=== PATIENT | male | born 1955 | race Caucasian/White ===

== ENCOUNTER 2020-03-31 08:32 | Outpatient (REF) | payer MEDICARE, OTHER, SELFPAY ==
--- NOTE | 2020-03-31 | US_ITS ---
EXAMINATION: US ABDOMEN COMPLETE CLINICAL INFORMATION: History of hepatitis C. COMPARISON: Ultrasound abdomen complete dated 09/22/2018 and 09/10/2017. TECHNIQUE: Real-time imaging of the abdominal viscera. FINDINGS: PANCREAS: Normal. ABDOMINAL AORTA: The proximal, mid, and distal segments are normal in caliber. INFERIOR VENA CAVA: Visualized portions are normal. LIVER: Normal. The liver is normal in size. The liver contour is normal. Parenchymal echogenicity is normal. No focal hepatic lesion. There is no intrahepatic biliary duct dilatation seen. GALLBLADDER: Normal. The gallbladder is physiologically distended without evidence of stones, sludge, polyps, wall thickening or pericholecystic fluid. COMMON BILE DUCT: Normal in caliber measuring 0.52 cm in diameter. RIGHT KIDNEY: Normal. No hydronephrosis. No renal calculi or focal parenchymal lesions. The kidney measures 11.9 cm in maximum dimension. LEFT KIDNEY: Normal. No hydronephrosis. No renal calculi or focal parenchymal lesions. The kidney measures 12.4 cm in maximum dimension. SPLEEN: Normal. The spleen measures 12.7 cm in maximum dimension. FREE FLUID: None. US/US abdomen complete IMPRESSION: Normal abdominal ultrasound. No liver lesion identified.
[2020-03-31 11:14] LABS: MANUAL DIFF FLAG NO
[2020-03-31 11:30] LABS: Basophils Percent Auto 0.7 % (0-2); Eosinophils Absolute Auto 0.2 X10*3/uL (0.0-0.4); Eosinophils Percent Auto 2.7 % (0-4); Hematocrit 42.8 % (42-52); Hemoglobin 14.2 g/dl (14.0-18.0); Imm Gran Abs Auto 0.03 X10*3/uL (0.00-0.03); Imm Gran Pct Auto 0.5 % (0.0-0.4); Lymphocytes Absolute Auto 0.9 X10*3/uL (1.2-4.9); Lymphocytes Percent Auto 15.7 % (20-40); Mean Corpuscular HGB Conc 33.2 g/dl (31.0-36.0); Mean Corpuscular Hemoglobin 30.8 pg (27.0-33.0); Mean Corpuscular Volume 92.8 fL (80-98); Mean Platelet Volume 11.4 fL (9.4-12.4); Monocytes Absolute Auto 0.5 X10*3/uL (0.1-1.2); Monocytes Percent Auto 9.6 % (2-11); Neutrophils Absolute Auto 3.9 X10*3/uL (2.0-8.3); Neutrophils Percent Auto 70.8 % (45-73); Platelet Count 211 X10*3/uL (160-400); Red Blood Count 4.61 X10*6/uL (4.60-5.80); Red Cell Distribution Width 12.5 % (11.0-16.0); White Blood Count 5.5 X10*3/uL (4.8-10.8)
[2020-03-31 11:51] LABS: Prothrombin Time 12.1 SEC (10.8-13.0)
[2020-03-31 11:52] LABS: Alanine Aminotransferase 14 U/L (0-40); Albumin Level 4.1 g/dL (3.5-5.0); Alkaline Phosphatase 62 U/L (39-117); Aspartate Amino Transferase 17 U/L (5-37); Bilirubin Direct 0.4 mg/dL (0.0-0.5); Bilirubin Total 0.8 mg/dL (0.0-1.0); Total Protein 6.2 g/dL (6.5-8.0)
[2020-04-03 19:11] LABS: Alpha Fetoprotein 1.8 ng/mL (<6.1)
== END 2020-03-31 08:33 | disposition home or self-care (01) ==
LOC: HO.HMGCX 08:32
PROVIDERS: PCP Internal Medicine; Visit Provider Internal Medicine
DX: Z86.19 Personal history of other infectious and parasitic diseases (principal)
CPT/HCPCS: 36415; 76700; 80076; 82105; 85025; 85610

== ENCOUNTER 2021-06-27 10:37 | Outpatient (REF) | payer MEDICARE, OTHER, SELFPAY ==
[2021-06-27 13:59] LABS: Prothrombin Time 11.5 SEC (9.9-13.0)
[2021-06-27 14:31] LABS: Alanine Aminotransferase 15 U/L (0-40); Albumin Level 4.3 g/dL (3.5-5.0); Alkaline Phosphatase 72 U/L (39-117); Aspartate Amino Transferase 16 U/L (5-37); Bilirubin Direct 0.3 mg/dL (0.0-0.5); Total Protein 6.7 g/dL (6.5-8.0)
[2021-06-30 14:06] LABS: HCV Log PCR <1.18 log IU/mL; HepC Viral Load <15 IU/mL
[2021-06-30 16:17] LABS: FIB-ALT 16 U/L (9-46); FIB-Alpha-2-Macroglobulin 149 mg/dL (106-279); FIB-Apolipoprotein A1 165 mg/dL (94-176); FIB-GGT 15 U/L (3-70); FIB-Haptoglobin 154 mg/dL (43-212); FIB-Total Bilirubin 0.8 mg/dL (0.2-1.2); Liver Fibrosis Score 0.17; Liver Fibrosis Stage F0; Nec Inflam Act Grade A0; Nec Inflam Act Score 0.05
== END 2021-06-27 10:38 | disposition home or self-care (01) ==
LOC: HO.HMGCLDS 10:37
PROVIDERS: Visit Provider Internal Medicine
DX: Z86.19 Personal history of other infectious and parasitic diseases (principal)
CPT/HCPCS: 36415; 80076; 81596; 82105; 85610; 87522

== ENCOUNTER 2021-07-25 10:29 | Outpatient (REF) | payer MEDICARE, OTHER, SELFPAY ==
--- NOTE | ~2021-07-25 | US_ITS ---
EXAMINATION: US COMPLETE ABDOMEN WITH LIVER ELASTOGRAPHY CLINICAL INFORMATION: History of hepatitis C COMPARISON: Abdominal ultrasound 03/31/2020 . TECHNIQUE: Real-time imaging of the abdominal viscera. Noninvasive ultrasound liver fibrosis assessment is performed using Carlos ElastPQ point quantification shear wave elastography (2D-SWE) with a C5-2 MHz transducer. Multiple elastography samples are obtained. FINDINGS: PANCREAS: Not well seen due to bowel gas. ABDOMINAL AORTA: The proximal and distal aortic segments are normal in caliber. The mid segment is obscured by gas. INFERIOR VENA CAVA: Visualized portions are normal. LIVER: The liver demonstrates normal Contour with increased echogenicity. Borderline enlargement of the liver. No focal lesion or intrahepatic biliary duct dilatation. The right lobe measures 19.4 cm in length. The left lobe measures 11.2 cm in length. Portal flow is towards the liver (hepatopetal). Shear wave liver elastography median stiffness is 1.54 m/s (reference: normal median stiffness is 1.3 m/s or less). IQR/median stiffness to assess sampling precision is 0.12 (reference: good quality data set is IQR/median stiffness of 0.15 or less). GALLBLADDER: Normal. The gallbladder is physiologically distended without evidence of stones, sludge, polyps, wall thickening or pericholecystic fluid. COMMON BILE DUCT: Normal in caliber measuring 0.5 cm in diameter. RIGHT KIDNEY: Normal. No hydronephrosis. No renal calculi or focal parenchymal lesions. The kidney measures 12.1 cm in maximum dimension. LEFT KIDNEY: Normal. No hydronephrosis. No renal calculi or focal parenchymal lesions. The kidney measures 11.9 cm in maximum dimension. SPLEEN: Normal. The spleen measures 12.1 cm in maximum dimension. FREE FLUID: None. US/US abdomen comp w elastography IMPRESSION: 1. Hepatic steatosis with borderline hepatomegaly. 2. Liver elastography: In the absence of other known clinical signs, measurements rule out compensated advanced chronic liver disease. If there are known clinical signs, further testing may be needed for confirmation. REFERENCE: Society of Radiologists in Ultrasound Liver Stiffness Thresholds (2019): LIVER STIFFNESS THRESHOLDS: *Liver Stiffness equal or less than 1.3 m/s: High probability of being normal. *Liver Stiffness less than 1.7 m/s: In the absence of other known clinical signs, rules out compensated advanced chronic liver disease. *Liver Stiffness 1.7-2.1 m/s: Suggestive of compensated advanced chronic liver disease but need further test for confirmation. *Liver Stiffness over 2.1 m/s: Rules in compensated advanced chronic liver disease. *Liver Stiffness over 2.4 m/s: Suggestive of clinically significant portal hypertension. QUALITY OF DATA SET: *IQR/Median value equal or less than 0.15 implies a quality data set. *IQR/Median value over 0.15 implies a poor quality data set. SIGNIFICANT CHANGE FROM PRIOR EXAM: Significant change if liver stiffness measurement is 10% or greater from prior exam. OTHER CONSIDERATIONS: The stage of liver fibrosis may be overestimated in the setting of acute hepatitis, liver inflammation, elevated liver function tests, hepatic vascular congestion, obstructive cholestasis, non-fasting state, and infiltrative diseases such as amyloidosis and lymphoma. In some patients with NAFLD, the liver stiffness thresholds for compensated advanced chronic liver disease may be lower. In causes other than viral hepatitis and NAFLD, liver stiffness thresholds are not well established.
== END 2021-07-25 10:30 | disposition home or self-care (01) ==
LOC: HO.US 10:29
PROVIDERS: Visit Provider Internal Medicine
DX: Z86.19 Personal history of other infectious and parasitic diseases (principal)
CPT/HCPCS: 76705; 76981

== ENCOUNTER 2023-04-30 08:57 | Outpatient (REF) | payer MEDICARE, OTHER, SELFPAY ==
--- NOTE | ~2023-04-30 | US_ITS ---
EXAMINATION: US COMPLETE ABDOMEN WITH LIVER ELASTOGRAPHY CLINICAL INFORMATION: History of hepatitis C COMPARISON: July 25, 2021 TECHNIQUE: Real-time imaging of the abdominal viscera. Noninvasive ultrasound liver fibrosis assessment is performed using Carlos ElastPQ point quantification shear wave elastography (2D-SWE) with a C5-2 MHz transducer. Multiple elastography samples are obtained. FINDINGS: PANCREAS: Normal. The visualized pancreatic head and body are normal in appearance. The remainder of the pancreas is obscured from visualization by the overlying bowel gas. ABDOMINAL AORTA: The proximal, middle, and distal aortic segments are normal in caliber. INFERIOR VENA CAVA: Visualized portions are normal. LIVER: There is diffuse increased echogenicity consistent with fatty infiltration/hepatocellular disease. No focal lesion or intrahepatic biliary duct dilatation. The right lobe measures 15.5 cm in length. The left lobe measures 9.7 cm in length. Portal flow is hepatopedal Shear wave liver elastography median stiffness is 1.5 m/s (reference: normal median stiffness is 1.3 m/s or less). IQR/median stiffness to assess sampling precision is 0.11 (reference: good quality data set is IQR/median stiffness of 0.15 or less). GALLBLADDER: Normal. The gallbladder is physiologically distended without evidence of stones, sludge, polyps, wall thickening or pericholecystic fluid. COMMON BILE DUCT: Normal in caliber measuring 0.6 cm in diameter. RIGHT KIDNEY: Normal. No hydronephrosis. No renal calculi or focal parenchymal lesions. The kidney measures 11.1 cm in maximum dimension. LEFT KIDNEY: Within the lower pole there is a 1.2 x 1.0 x 1.1 cm mildly complex cyst without internal blood flow. There is a thin septation present as well as some dependent debris and a few small echogenic foci which may represent calculi. This has the appearance of a Bosniak 2F cyst for which 6 month follow-up study is recommended. No hydronephrosis. No renal calculi or focal solid parenchymal lesions. The kidney measures 10.5 cm in maximum dimension. SPLEEN: Normal. The spleen measures 12.1 cm in maximum dimension. FREE FLUID: None. US/US abdomen comp w elastography IMPRESSION: 1. Diffusely increased echogenicity of the liver consistent with fatty infiltration/hepatocellular disease. No focal mass. Bosniak 2F left renal cyst for follow-up examination in 6 months. 2. Liver elastography: In the absence of other known clinical signs, measurements rule out compensated advanced chronic liver disease. If there are known clinical signs, further testing may be needed for confirmation. REFERENCE: Society of Radiologists in Ultrasound Liver Stiffness Thresholds (2020): LIVER STIFFNESS THRESHOLDS: *Liver Stiffness equal or less than 1.3 m/s: High probability of being normal. *Liver Stiffness less than 1.7 m/s: In the absence of other known clinical signs, rules out compensated advanced chronic liver disease. *Liver Stiffness 1.7-2.1 m/s: Suggestive of compensated advanced chronic liver disease but need further test for confirmation. *Liver Stiffness over 2.1 m/s: Rules in compensated advanced chronic liver disease. *Liver Stiffness over 2.4 m/s: Suggestive of clinically significant portal hypertension. QUALITY OF DATA SET: *IQR/Median value equal or less than 0.15 implies a quality data set. *IQR/Median value over 0.15 implies a poor quality data set. SIGNIFICANT CHANGE FROM PRIOR EXAM: Significant change if liver stiffness measurement is 10% or greater from prior exam. OTHER CONSIDERATIONS: The stage of liver fibrosis may be overestimated in the setting of acute hepatitis, liver inflammation, elevated liver function tests, hepatic vascular congestion, obstructive cholestasis, non-fasting state, and infiltrative diseases such as amyloidosis and lymphoma. In some patients with NAFLD, the liver stiffness thresholds for compensated advanced chronic liver disease may be lower. In causes other than viral hepatitis and NAFLD, liver stiffness thresholds are not well established.
[2023-04-30 10:18] LABS: MANUAL DIFF FLAG NO
[2023-04-30 10:48] LABS: Basophils Percent Auto 0.7 % (0-2); Eosinophils Absolute Auto 0.2 X10*3/uL (0.0-0.4); Eosinophils Percent Auto 2.6 % (0-4); Hemoglobin 14.7 g/dl (14.0-18.0); Imm Gran Abs Auto 0.05 X10*3/uL (0.00-0.03); Imm Gran Pct Auto 0.8 % (0.0-0.4); Lymphocytes Absolute Auto 1.2 X10*3/uL (1.2-4.9); Lymphocytes Percent Auto 18.8 % (20-40); Mean Corpuscular HGB Conc 33.4 g/dl (31.0-36.0); Mean Corpuscular Hemoglobin 30.9 pg (27.0-33.0); Mean Corpuscular Volume 92.4 fL (80.0-98.0); Mean Platelet Volume 11.2 fL (9.4-12.4); Monocytes Absolute Auto 0.6 X10*3/uL (0.1-1.2); Monocytes Percent Auto 9.2 % (2-11); Neutrophils Absolute Auto 4.2 x10*3/uL (2.0-8.3); Neutrophils Percent Auto 67.9 % (45-73); Platelet Count 212 X10*3/uL (160-400); Red Blood Count 4.76 X10*6/uL (4.60-5.80); Red Cell Distribution Width 12.2 % (11.0-16.0); White Blood Count 6.1 X10*3/uL (4.8-10.8)
[2023-04-30 10:53] LABS: INTERNATIONAL NORM RATIO 0.9 (0.9-1.1); Prothrombin Time 11.3 SEC (11.1-13.3)
[2023-04-30 11:26] LABS: Alanine Aminotransferase 15 U/L (0-40); Albumin Level 4.4 g/dL (3.5-5.0); Alkaline Phosphatase 63 U/L (39-117); Aspartate Amino Transferase 17 U/L (5-37); Bilirubin Direct 0.3 mg/dL (0.0-0.5); Bilirubin Total 0.8 mg/dL (0.0-1.0); Total Protein 6.9 g/dL (6.5-8.0)
[2023-05-01 11:29] LABS: Alpha Fetoprotein 1.9 ng/mL (<6.1)
[2023-05-02 16:03] LABS: HCV Log PCR <1.18 NOT DETECTED Log IU/mL (NOT DETECTED); HepC Viral Load <15 NOT DETECTED IU/mL (NOT DETECTED)
[2023-05-09 14:24] LABS: FIB-ALT 14 U/L (9-46); FIB-Alpha-2-Macroglobulin 154 mg/dL (106-279); FIB-Apolipoprotein A1 198 mg/dL (94-176); FIB-GGT 13 U/L (3-70); FIB-Haptoglobin 126 mg/dL (43-212); FIB-Total Bilirubin 0.7 mg/dL (0.2-1.2); Liver Fibrosis Score 0.13; Liver Fibrosis Stage F0; Nec Inflam Act Grade A0; Nec Inflam Act Score 0.04
== END 2023-04-30 08:58 | disposition home or self-care (01) ==
LOC: HO.US 08:57
PROVIDERS: PCP Internal Medicine; Visit Provider Internal Medicine
DX: Z86.19 Personal history of other infectious and parasitic diseases (principal)
CPT/HCPCS: 36415; 76705; 76981; 80076; 81596; 82105; 85025; 85610; 87522

== ENCOUNTER 2023-06-18 07:39 | Day surgery (SDC) | payer MEDICARE, OTHER, SELFPAY ==
[2023-06-16 14:05] VITALS: BMI 29.0
--- NOTE | 2023-06-17 11:56 | HO.ANESPROP2 ---
Documented by User: Yuliya Werner NP 06/17/23 11:56 HPI - Anesthesia Eval Consult details Narrative: 68yo M for Colonoscopy [facility] [place] Past Medical History Medical History (Updated 06/16/23 @ 14:04 by Tory Askew, MARTHA) Hx of squamous cell carcinoma Diabetes Hx of hepatitis C HTN (hypertension) Asthma Surgical History Surgical History (Updated 06/16/23 @ 14:04 by Tory Askew, MARTHA) Hx of knee surgery Hx of tonsillectomy Hx of colonoscopy History of liver biopsy Social History Social History Patient Tobacco Use Status: Never used Tobacco Use of substances other than those prescribed or required for medical reasons: No Are you DNR?: No Advance Directives: No Advance Directives Information Provided: Yes Meds Allergies Allergy/AdvReac Type Severity Reaction Status Date / Time No Known Allergies Allergy Unverified 06/15/23 14:04 Home Medications Medication Instructions Recorded Confirmed Last Taken Type fluticasone furoate 200 inhalation 06/16/23 06/16/23 Unknown History mcg-vilanterol 25 mcg/dose inhalation powder losartan 100 1 tab PO DAILY 06/16/23 06/16/23 Unknown History mg-hydrochlorothiazide 25 mg tablet metformin 500 mg tablet 500 mg PO BID 06/16/23 06/16/23 Unknown History metoprolol succinate 25 mg 12.5 mg PO DAILY 06/16/23 06/16/23 Unknown History tablet,extended release 24 hr Exam Height,Weight and Vital Signs: Height 6 ft 1 in Weight 99.79 kg Pertinent Lab Results Pertinent Lab Results: Laboratory Tests 04/30/23 10:17 WBC 6.1 Hgb 14.7 Hct 44.0 Plt Count 212 Assessment and Plan Assessment Anesthesia Assessment: Chart Reviewed Documented by User: Scooby Solano MD 06/18/23 08:21 [facility] [place] Past Medical History Medical History (Updated 06/16/23 @ 14:04 by Tory Askew RN) Hx of squamous cell carcinoma Diabetes Hx of hepatitis C HTN (hypertension) Asthma Family History Family history of problems with anesthesia: No Surgical History Surgical History (Updated 06/16/23 @ 14:04 by Tory Askew RN) Hx of knee surgery Hx of tonsillectomy Hx of colonoscopy History of liver biopsy History of Problems with Anesthesia: No Social History Social History Patient Tobacco Use Status: Never used Tobacco Use of substances other than those prescribed or required for medical reasons: No Are you DNR?: No Advance Directives: No Advance Directives Information Provided: Yes Meds Allergies Allergy/AdvReac Type Severity Reaction Status Date / Time No Known Allergies Allergy Unverified 06/15/23 14:04 Home Medications Medication Instructions Recorded Confirmed Last Taken Type fluticasone furoate 200 inhalation 06/16/23 06/16/23 Unknown History mcg-vilanterol 25 mcg/dose inhalation powder losartan 100 1 tab PO DAILY 06/16/23 06/16/23 Unknown History mg-hydrochlorothiazide 25 mg tablet metformin 500 mg tablet 500 mg PO BID 06/16/23 06/16/23 Unknown History metoprolol succinate 25 mg 12.5 mg PO DAILY 06/16/23 06/16/23 Unknown History tablet,extended release 24 hr Exam Airway Mallampati Class: II TM Dist: >3cm Loose/Missing/Broken Teeth: No Heart: ok Lungs: ok Assessment and Plan Assessment Anesthesia Assessment: Anesthesia Plan Discussed Final Anesthetic Review Family History of Problems with Anesthesia: No History of Problems with Anesthesia: No NPO: Yes ASA Class: II Final Preanesthetic Review: No Changes in Pt Med Stat, Meds/Allgs Chart Reviewed, Consent Obtained/Reviewed and Anes Risks/Benef Reviewed Patient Risk: Intermediate Procedure Risk: Low Anesthetic Plan Anesthetic Plan: MAC: and Agree w/ Assess. and Plan Disposition: Standard PACU
[2023-06-18 07:43] VITALS: BMI 27.0
[2023-06-18 08:08] VITALS: BP 120/80; PULSE 75; RESP 16; TEMP 35.9; O2SAT 97
[2023-06-18] MEDS: Lactated Ringers 1,000 ML 100 ML IVCONT (08:09)
[2023-06-18 08:53] LABS: Glucose, Whole Blood 181 mg/dL (60-115)
[2023-06-18 10:15] VITALS: BP 106/68; PULSE 62; RESP 16; TEMP 36.3; O2SAT 98
--- NOTE | 2023-06-18 10:15 | PM.OP ---
Brief Operative Note Date of Service: 06/18/23 Pre-op diagnosis: Screening Post-op diagnosis: other (Polyps) Procedure: Colonoscopy to the cecum with hot snare polypectomy x 4 with placement of 1 Resolution on an AC polypectomy site Surgeon: Bert De Leon MD Anesthesia: MAC Was an Automation Engineering Manager used for this Procedure?: No Estimated blood loss (mL): 2.0 Pathology: other (A. Ascedning colon polyps x 2 B. Transverse colon polyp C. Polyp at 50cm D. Polyp at 40cm) Condition: stable Disposition: PACU
[2023-06-18 10:30] VITALS: BP 122/76; PULSE 74; RESP 18; TEMP 36.3; O2SAT 98
--- NOTE | 2023-06-19 20:47 | OP_ITS ---
DATE OF SERVICE: 06/18/2023 SURGEON: Bert De Leon MD INDICATIONS: The patient presents for evaluation of colorectal cancer screening and personal history of tubular adenoma of the colon. Full consent has been obtained from him for this, including risks of bleeding and perforation. PREOPERATIVE DIAGNOSIS: POSTOPERATIVE DIAGNOSIS: PROCEDURE PERFORMED: Colonoscopy to the cecum with hot snare polypectomy x 4 and with placement of 1 resolution clip on 1 of the ascending colon polypectomy sites. ESTIMATED BLOOD LOSS: COMPLICATIONS: ANESTHESIA: Monitored anesthesia care. ASSISTANTS: SPECIMENS: PREOPERATIVE DIAGNOSES: Colorectal cancer screening and personal history of tubular adenoma of the colon. POSTOPERATIVE DIAGNOSES: Colorectal cancer screening and personal history of tubular adenoma of the colon, colon polyps, diverticulosis, and internal hemorrhoids. DESCRIPTION OF PROCEDURE: The patient was placed in the left lateral decubitus position. The digital rectal exam revealed no abnormalities. The QuadROI video pediatric colonoscope was entered into the rectum and advanced easily to the cecum. Once in the cecum, I did identify normal-appearing cecal pouch with appendiceal orifice and a normal-appearing ileocecal valve. The entire cecum and ileocecal valve appeared normal. The scope was slowly withdrawn assessing all mucosal surfaces carefully. Preparation was excellent. In the ascending colon were 2 polyps between 10 and 12 mm in diameter. These were both removed by hot snare polypectomy and recovered by suction. The polypectomy site of the more proximal ascending colon polyp appeared clean, without any sign of residual polyp nor bleeding. The polypectomy site of the more distal ascending colon, polypectomy site did have some oozing and a single resolution clip was applied to the site after it was further cauterized with the tip of the snare. There was no further sign of any active bleeding. In the transverse colon, at 50 cm, and at 40 cm were approximately 10 mm polyps, which were each snared and recovered by suction. All of the polypectomy sites appeared clean, without any sign of residual polyp nor bleeding. There was a mild amount of sigmoid diverticulosis. In the rectum, scope was retroflexed visualizing internal hemorrhoids, but no other pathology. The rectal mucosa appeared normal. The scope was straightened and withdrawn from the patient. He tolerated the procedure well and was returned to the recovery area in stable condition. IMPRESSION: 1. Colon polyps. 2. Diverticulosis. 3. Internal hemorrhoids. PLAN: The results of the pathology will be checked. I would recommend a repeat colonoscopy in 3 years for further screening and surveillance. He was advised not to use any aspirin and NSAIDs for 2 weeks. He will see me in 1 year for a followup visit in regard to his underlying history of previous hepatitis C. He was again reminded, as was his , to follow up with his urologist regarding the renal cyst. He will otherwise see me again on a p.r.n. basis. MD MARLENE Haq/NICOLAS / [id number] MTDD
== END 2023-06-18 11:04 | disposition home or self-care (01) ==
PROVIDERS: PCP Internal Medicine; Visit Provider Internal Medicine
PROC: 0DJD8ZZ Inspection of Lower Intestinal Tract, Via Natural or Artificial Opening Endoscopic (ICD-10-PCS; CPT 45378; principal; 2023-06-18 08:40)
DX: Z12.11 Encounter for screening for malignant neoplasm of colon (principal); Z86.010 Personal history of colon polyps; D12.2 Benign neoplasm of ascending colon; D12.3 Benign neoplasm of transverse colon; D12.5 Benign neoplasm of sigmoid colon; K57.30 Diverticulosis of large intestine without perforation or abscess without bleeding; K64.8 Other hemorrhoids; N28.1 Cyst of kidney, acquired; I10 Essential (primary) hypertension; E11.9 Type 2 diabetes mellitus without complications; J45.909 Unspecified asthma, uncomplicated; Z79.84 Long term (current) use of oral hypoglycemic drugs; Z79.51 Long term (current) use of inhaled steroids; Z79.899 Other long term (current) drug therapy; Z85.828 Personal history of other malignant neoplasm of skin; Z86.19 Personal history of other infectious and parasitic diseases; Z87.891 Personal history of nicotine dependence
CPT/HCPCS: 45385; 82947; 88305; J2704; J3010

== ENCOUNTER 2024-08-03 08:49 | Outpatient (REF) | payer MEDICARE, SELFPAY ==
--- NOTE | ~2024-08-03 | US_ITS ---
EXAMINATION: US ABDOMEN COMPLETE WITH LIVER ELASTOGRAPHY HISTORY: H/O HEP C TECHNIQUE: Real-time grayscale ultrasound imaging of the abdomen was performed and images were reviewed. COMPARISON: Comparison is made with the prior examination dated 04/30/2023. FINDINGS: Liver: The right lobe of the liver measures 17.0 cm in size. The left lobe of the liver measures 8.8 cm in size. The liver demonstrates increased echotexture, consistent with steatosis. No focal mass or intrahepatic biliary ductal dilatation is identified. There is normal hepatopedal flow in the portal vein. Ultrasound elastography of the liver was performed with 10 separate measurements of the liver parenchyma with the patient in the supine position. Measurements were obtained approximately 2 cm below Jaqueline's capsule and perpendicular to the capsule. Images are of satisfactory quality. The median shear wave velocity is 1.90 m/s (previously 1.50 m/s). The interquartile range/median (IQR/median) is 0.07. Gallbladder and biliary tree: The gallbladder is unremarkable, without evidence of calculi, wall thickening, or pericholecystic fluid. There is no sonographic Jung sign. The common bile duct is normal in caliber measuring 5 mm. Kidneys: The right kidney measures 11.3 cm in length. The left kidney measures 12.5 cm in length. Again seen is a septated cyst in the interpolar region of the left kidney measuring 1.3 x 0.9 x 0.7 cm. The kidneys are otherwise unremarkable, without evidence of solid masses, hydronephrosis, or calculi. Pancreas: The pancreatic head, neck, and body are unremarkable. The pancreatic tail is obscured by bowel gas. Spleen: The spleen is normal in size and contour, measuring 11.7 cm in length. Abdominal aorta and inferior vena cava: The visualized portions of the abdominal aorta and inferior vena cava are normal in caliber. There is no free fluid in the abdomen. US/US abdomen comp w elastography IMPRESSION: Hepatomegaly and hepatic steatosis. 1.3 cm septated left renal cyst. The median shear wave velocity in the liver is 1.90 m/s, corresponding to a median liver stiffness of 10.95 kPa. The IQR/median value is 0.07. This is indicative of a quality data set. Findings are indicative of a high elastography value suggestive of compensated advanced chronic liver disease. REFERENCE: Society of Radiologists in Ultrasound Liver Stiffness Thresholds (2020): LIVER STIFFNESS THRESHOLDS: *Shear wave velocity less than 1.3 m/s (Liver Stiffness equal or less than 5 kPa): High probability of being normal. *Shear wave velocity less than 1.7 m/s (Liver Stiffness less than 9 kPa): In the absence of other known clinical signs, rules out compensated advanced chronic liver disease. *Shear wave velocity between 1.7-2.1 m/s (Liver Stiffness 9-13 kPa): Suggestive of compensated advanced chronic liver disease but need further test for confirmation. *Shear wave velocity between 2.1-2.4 m/s (Liver Stiffness 13-17 kPa): Rules in compensated advanced chronic liver disease. *Shear wave velocity greater than 2.4 m/s (Liver Stiffness over 17 kPa): Suggestive of clinically significant portal hypertension. QUALITY OF DATA SET: *IQR/Median value equal or less than 0.15 implies a quality data set. *IQR/Median value over 0.15 implies a poor quality data set. SIGNIFICANT CHANGE FROM PRIOR EXAM: Significant change if liver stiffness measurement is 10% or greater from prior exam. OTHER CONSIDERATIONS: The stage of liver fibrosis may be overestimated in the setting of acute hepatitis, liver inflammation, elevated liver function tests, hepatic vascular congestion, obstructive cholestasis, non-fasting state, and infiltrative diseases such as amyloidosis and lymphoma. In some patients with NAFLD, the liver stiffness thresholds for compensated advanced chronic liver disease may be lower. In causes other than viral hepatitis and NAFLD, liver stiffness thresholds are not well established. Electronically signed by: Bert Islas MD 08/03/2024 10:24 AM EDT
--- OUTSIDE RECORDS SUMMARY | 2024-08-03 09:17 | XMS_ITS ---
[place] [facility] [place] [facility] Encounter Summary Created on: August 03, 2024 GREENEFADI : 1955 Sex: Male Author Name [facility] [place] [facility] [place] Address [address] [place] [address] Care Team Providers Care Pasting Machine Operator Name Role Phone SAIDA HOUSTON Primary Care Provider Unavailabl e Insurance Providers: All historical and current Section Date Range: From patient's date of to the date document was created. This section includes the names of all active insurance providers for the patient. Insurance Provider Type of Coverage Plan Name Start of Policy Coverage End of Policy Coverage Group Number Member ID Insurance Provider's Telephone Number Policy Henry's Name Patient's Relationship to Policy Henry MEDICARE (WNR) MEDICARE (M) PART A Feb 16, 2019 PART A [id number] MUNDO GREENE PATIENT MEDICARE (WNR) MEDICARE (M) PART B Feb 16, 2019 PART B [id number] MUNDO GREENE PATIENT FOR LIFE TFL* Feb 16, 2019 [id number] MUNDO GREENE PATIENT Selected Encounter This section includes the [place] at [place] for [place]counter. Date/Time Encounter Type Encounter Description Reason Provider Source Mar 25, 2024 09:15 AM MED NUTRITION INDIV SUBSEQ NUTRITION/DIETETI CS-INDIVIDUAL ICD-10-CM E11.9 Type 2 diabetes mellitus without complications LAURITA TORRES Encounter Template Text not used by [place] Assessments - Encounter Diagnoses This section includes the primary and secondary diagnoses documented for the Encounter. Date/Time Primary/Secondary Diagnosis Diagnosis Name Provider Source Mar 25, 2024 09:45 AM PRIMARY Type 2 diabetes mellitus without complications LA[facility]ITA TORRES [facility] Mar 25, 2024 09:45 AM SECONDARY Body mass index [BMI] 27.0-27.9, adult [facility]ITA [facility] Mar 25, 2024 09:45 AM SECONDARY Dietary counseling and surveillance [facility]OR[facility] Mar 25, 2024 09:45 AM SECONDARY Overweight [facility]ITA [facility]ORRES [facility] Plan of Treatment: Future Appointments (+ 6 months) and Future Tests (+/- 45 days) The Plan of Treatment section includes future care activities for the [facility] [place] [facility] This section includes future appointments and future orders which are active, pending or scheduled. Future Appointments This section includes appointments that were scheduled to occur 6 months from the date of the Encounter, up to a maximum of 20 appointments. The data comes from all [place] treatment facilities. Appointment Date/Time Appointment Type Appointme nt Facility Name Apr 01, 2024 11:00 AM AMBULATORY - [facility] Apr 02, 2024 03:00 PM AMBULATORY MEDICINE [facility] Aug 02, 2024 10:00 AM AMBULATORY - [facility] Aug 23, 2024 11:00 AM AM[facility]UL[facility] - [facility] Vital Signs: All taken on the encounter date This section contains inpatient and outpatient Vital Signs collected on the date of the Encounter. Date/Time Temperature Pulse Blood Pressure Respiratory Rate SP02 Pain Height Weight Body Mass Index Source Mar 25, 2024 09:44 AM 211 28 [facility] Social History: Smoking Status (Most current) and Tobacco Use (All prior to encounter date) This section includes the most current, and the historical, smoking and tobacco- related health factors from the [place] facility where the Encounter took place. Current Smoking Status This section includes the most current smoking, or tobacco-related health factor, from the [place] facility where the Encounter took place. Date/Time Current Smoking Status Comment Laurie ity Aug 29, 2023 11:00 AM VA-TOBACCO FORMER USER [place] [facility] [place] [facility] Tobacco Use History This section includes a history of the smoking, or tobacco-related health factors, that were collected on or before the date of the Encounter. The data comes from the [place] facility where the Encounter took place. Date/Time Smoking Status/Tobacco Use Comment F acility Aug 29, 2023 11:00 AM VA-TOBACCO QUIT 15 YRS OR MORE [place] [facility] [place] [facility] Aug 28, 2022 11:00 AM VA-TOBACCO FORMER USER [facility] [place] [facility] Aug 28, 2022 11:00 AM VA-TOBACCO QUIT 15 YRS OR MORE [facility] [place] [facility] Aug 31, 2021 10:30 AM VA-TOBACCO FORMER USER [facility] [place] [facility] Aug 31, 2021 10:30 AM VA-TOBACCO QUIT 15 YRS OR MORE [place] [facility] [place] [facility] Jun 29, 2020 01:30 PM VA-TOBACCO FORMER USER [facility] [place] [facility] Jun 29, 2020 01:30 PM VA-TOBACCO QUIT 15 YRS OR MORE [facility] [place] [facility] Mar 19, 2019 03:54 PM VA-TOBACCO FORMER USER [facility] [place] [facility] Mar 19, 2019 03:54 PM VA-TOBACCO QUIT 15 YRS OR MORE [place] [facility] [place] [facility] Encounter Notes: All associated encounter notes This section contains the clinical notes associated to the Encounter. Date/Time Encounter Note(s) Provider Source Mar 25, 2024 08:15 AM NUTRITION DIETETICS NOTE: LOCAL TITLE: NUTRITION PROGRESS NOTE STANDARD TITLE: NUTRITION DIETETICS NOTE DATE OF NOTE: MAR 25, 2024@08:15 ENTRY DATE: MAR 25, 2024@08:15:59 AUTHOR: CULLEN TORRES EXP COSIGNER: URGENCY: STATUS: COMPLETED [facility] ([facility]VC) Standard Documentation V[facility] Clinician Resources Only: E911 (Emergency Call Relay Center): [phone] [facility] Line - 168 then press #1. CHI[place] Suicide Coordinator [phone], Ext. [phone]; Back-up Ext. [phone] [place] Police, Simone BEDOLLA [phone] Introduction: Visit is being conducted by [place] [employer] Connect. [place] identified with 2 identifiers: [X] Full Name [X] Date of [ ] [place] Card Emergency Plan: confirmed and/or provided the following information in case of emergency or technology failure. PATIENT PHONE - PHONE NUMBER [CELLULAR] - Is patient phone number correct, if not, enter below: [place]'s phone number: same FADI GREENE [address], [place], [address] 's present location and address for appointment: [address] [place] [address], [address] 's emergency contact name and phone number: ANGELES GREENE Spouse [phone] cell [place] reported that location is private and safe: Yes Informed Consent: informed of the risks and benefits of Telehealth video care. has the right to refuse video services. If refuses video visit, a [id number] visit will be scheduled. [place] verbalized consent for this video visit: Yes [place] provided consent for any other persons present for visit: N/A If yes, who and relationship to patient: Secure visit: Visit was locked for security and privacy:Yes -- Reason for Nutrition referral: Diabetes Mellitus Primary Diagnosis: Type II DM without complication (E11.9) Secondary Diagnosis: Dietary Surveillance and Counseling (Z71.3) Additional Secondary Diagnosis: Overweight (E66.3) Body mass index [BMI] 28.0-28.9, adult (ICD-10-CM Z68.28) Date of Nutrition Referral: 08/29/23 Referred to Nutrition Clinic By: Dr. Houston Date of Nutrition Visit: March Visit #: 4 Time Spent with Patient: 25 minutes Patient identified using the following two forms of ID: Date of , Patient Full Name NUTRITION ASSESSMENT: Anthropometric Measurements: Ht:73 in [185.4 cm] (06/29/2019 14:28) Wt:211 lbs = 03/25/24 Weight History: 214 = 12/04/23 213 = 10/23/23 217 = 08/29/23 BMI: 27.90 IBW: 184 +/-10% Biochemical Data/Medical Tests: No new labs Most recent A1C: SCL1 - HEMOGLOBIN A1C TREND Collection DT Spec HGBA1c 08/26/2023 09:39 BLOOD 7.0 H Nutrition Focused Physical Findings: N/A Nutrition-Focused Physical Exam Unable to perform nutrition-focused physical assessment Nutrition-Focused Physical Exam Summary: Based on the ASPEN/AND Malnutrition Diagnosis Guide, it was determined that the [place] DOES NOT have malnutrition. Nutrition History: Food/Nutrition Related History: Progress since last visit: Went on another vacation to [facility] and some challenges eating healthy. Progress with goals: 1. Continue to avoid fig bars-MET, BUT DID BY SOME COCONUT COOKIES 2. Continue to limit beer to twice per week- PARTIALLY MET, DRINKING MORE ON VACATION and AVERAGES 2-3x/WEEK 3. Continue efforts to moderate carbohydrate intake: PAERTIALLY MET, READS LABELS FOR CARBOHYDRATE CONTENT AND BELIEVES HE IS CLOSE TO 45G PER MEAL * Place plate handout where you will see it (refrigerator) * Continue to read nutrition facts box on food labels for total carbohydrate content * Aim for 3-4 carbohydrate servings per meal (45-60 grams carbohydrate) 4. MOVE Program for weight management and habit changes-MET In the past 3 months, did you ever run out of food and you were not able to access more food or have the money to buy more food? No Other Subjective Information: Plans to participate in MOVE support group. Received handouts, no questions on them. Accepts offer of MOVE program for wt management. NUTRITION DIAGNOSIS: Inconsistent Carbohydrate Intake related to Physiological causes requiring careful timing and consistency in the amount of carbohydrates(e.g.,diabe loida mellitus, hypoglycemia)as evidenced by estimated carbohydrate intake that is different from recommended types or ingested on an irregular basis. [ ] Resolved [x ] Improvement Shown- reading labels for total Carbohydrate content, believes he is eating close to 45g carbohydrate [ ] Unresolved/No Improvement [ ] No Longer Appropriate NUTRITION INTERVENTION: NUTRITION EDUCATION provided on the following topic(s): Complex vs. Refined Carbohydrate (dietary sources and effect on glucose), Potential Benefits of Weight Loss, MOVE! program (rationale, format, content, day/time, location) OTher: Reviewed progress since last visit. Explored additional options to help with Diabetes and Weight Management. Reinforced the benefits of wt reduction to help with insulin resistance. Discussed cookies as carbohydrate/calorie/sat urated fat sources and alternatives. Discussed alcohol and impact on calorie intake/weight and value of reducing. Reinforced 3-4 carbohydrate servings per meal from healthy carbohydrate sources. Printed Nutrition educational materials provided during this encounter: None today, provided prior visits Food/Drug Interactions: Educated 09/18/23 HCTZ/Losartan - Potassium/salt substitute Barriers to Education: None Comprehension: Good Motivation: Fair-Good Goals: 1. Swap cookies for 1 serving of seasonal fruit 2. Reduce alcohol to 2 drinks, 2 times per week 3. MOVE support group ========= NUTRITION COUNSELLING: Strategies: Motivational Interviewing, Goal Setting COORDINATION OF NUTRITION CARE: Follow-up with: PCP, MOVE Program MONITORING/EVALUATION: 1. Follow-up visit: None, patient declines and will attend MOVE SUpport Group in lieu of Nutrition clinic 2. Monitor progress toward achievement of Nutrition Intervention Goals 3. Assess comprehension and motivation based on dietary changes made 4. Monitor progress toward achievement of Clinical Outcome Goals: Weight, Labs CLINICAL OUTCOME GOALS: Indicator: A1c Criteria: Type II DM Goal: A1c<7% by follow-up Progress: No new A1C yet, continue goal and monitoring at PCP visits Indicator: Weight Criteria: Overweight per BMI Goal: Weight loss of 1-2/#/week toward IBW by follow-up Progress: Partially met,wt down 3 lbs since 12/04/23 visit continue goal and monitoring of wt in MOVE Support Program [facility] [place], ASPIRATION, PURPOSE, VALUES, AND SHARED GOALS Shared Goal(s): See patient goals above (Focus area honoring [place] MAP & Team priorities) /del/ CULLEN TORRES RD,LDN STAFF DIETITIAN Signed: 03/27/2024 10:35 CULLEN TORRES [facility]
--- OUTSIDE RECORDS SUMMARY | 2024-08-03 09:17 | XMS_ITS ---
Author Organization [facility] Address [address] [place] [address] Care Team Providers Care Gl Accountant Name Role Phone Rosa Isela AGUILAR, Enrique Primary Care Provider Bert Ohara [phone] REASON FOR VISIT hx of polyps, hx of hepatitis C Encounters Encounter Location Date Provider Diagnosis [facility] [address] [place] [address] 07/16/2024 Bert De Leon Plan Of Treatment Next Appt Details Provider Name:Bert De Leon , 07/06/2025 01:00:00 PM, [address], [address], [place], [address], Progress Notes * DINORA GREENEOB:1955 (69 yo M)Acc No.[id number]:07/16/2024 Progress Notes Patient:?FADI GREENE Provider:?Bert De Leon MD :1955???Age:69 Y???Sex:Male Jake e:07/16/2024 Address:[address] [place], [place] [address] [id number] Pcp:Enrique Natarajan MD Subjective: * Chief Complaints: * ???1. hx of polyps, hx of he patitis C. * Medical History:? Objective: * Vitals:? Assessment: Plan: * Treatment: * * The named appointment provid er may or may not be the originator of this progress note, and it is not deemed complete until electronically signed by the appointment provider. Sign off status: Pending * Provider:?Bert De Leon MD Date:? 025 Generated for Kevin sanchez/Юлия/Raya on:?08/03/2024 09:17 AM EDT
--- OUTSIDE RECORDS SUMMARY | 2024-08-03 09:17 | XMS_ITS | Patient Health Record ---
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 Phone Rosa Isela AGUILAR, Enrique Primary Care Provider Bert Ohara Unavailable [phone] Allergies No Known Allergies Reason For Referral No Information Medications Medication SIG (Take, Route, Frequency, Duration) Notes Start Date End Date Status Multivitamin Adult - as directed Orally Active Breo Ellipta 100-25 MCG/INH 1 puff Inhal ation Once a day Active Vitamin C Active Losartan Potassium-HCTZ 100-25 MG 1 tablet Orally Once a day Active Toprol XL 25 MG 1 tablet Orally Once a day Active Tamsulosin HCl 0.4 MG Oral for 90 Active metFORMIN HCl 500 MG 1 tablet with a pal l Oral twice a day Active Immunizations Vaccine Route Administration Date Status Comme nts Influenza Unknown 03/04/2018 Administered Influenza Unknown 01/28/2019 Administered Influenza Unknown 01/18/2020 Administered Influenza Unknown 01/31/2021 Administered Social History Tobacco Use: Social History Observation Description Date Details (start date - stop date) Former Smoker NA - 02/07/1993 Tobacco Use/Smoking Question Answer Notes Patient is a former smoker When did you stop smoking? 02/07/1993 How long has it been since you last smoked? > 10 years Alcohol Screen Question Answer Notes Did you have a drink contain ing alcohol in the past year? Yes How often did you have a dri nk containing alcohol in the past year? 2 to 3 times a week (3 points) How many drinks did you have on a typical day when you were drinking in the past year? 1 or 2 drinks (0 point) How often did you have 6 or more drinks on one occasion in the past year? Never (0 point) Points 3 Interpretation Negative Section Notes: He is a former smoker, and u ses only occasional alcohol He is a former smoker, and u ses only occasional alcohol He is a former smoker, and u ses only occasional alcohol He is a former smoker, and u ses only occasional alcohol He is a former smoker, and u ses only occasional alcohol He is a former smoker, and u ses only occasional alcohol He is a former smoker, and u ses only occasional alcohol He is a former smoker, and u ses only occasional alcohol He is a former smoker, and u ses only occasional alcohol Problems Problem Type SNOMED Code ICD Code Onset Dates Problem Status W/U Status Risk Notes Problem [id number] Encounter for screening for malignant neoplasm of colon (Z12.11) Active confirmed Problem 166035568 History of adenomatous polyp of colon (Z86.010) Active confirmed Problem Diverticular disease of colon (958230484) Diverticulosis of large intestine without perforation or abscess without bleeding (K57.30) Active confirmed Problem 151431785 Chronic hepatiti s C without hepatic coma (B18.2) Active confirmed Problem 975081702 Hx of adenomatou s colonic polyps (Z86.010) Active confirmed Problem 68769258991663 History of hepatitis C (Z86.19) Active confirmed Problem Personal history of adenomatous and serrated colon polyps (Z86.0101) Active confirmed Vital Signs Blood pressure diastolic 00 mm Hg 06/29/2024 Height 73 in 06/29/2024 Blood pressure systolic 00 mm Hg 06/29/2024 Weight 215 lbs 06/29/2024 BMI 28.36 kg/m2 06/29/2024 Encounters Encounter Location Date Provider Diagnosis [facility] [address] [place] [address] 06/29/2024 Bert De Leon Encounter for screen ing for malignant neoplasm of colon Z12.11 ; Diverticulosis of large intestine without perforation or abscess without bleeding K57.30 ; History of hepatitis C Z86.19 and Personal history of adenomatous and serrated colon polyps Z86.0101 Assessments Encounter Date Diagnosis (ICD Code) Assessment Notes Treatment Notes Treatment Clinical Notes Section Notes 06/29/2024 Encounter for screening for malignant neoplasm of colon (ICD-10 - Z12.11) Overall, Fadi appears well. He is not having any new or worrisome GI complaints. We did review the findings on his colonoscopy including the multiple polyps and diverticulosis. Based on the number of polyps with some serrated features, I did recommend a followup colonoscopy in 2026 for further screening and surveillance. In regard to the diverticulosis we did review that diagnosis but at this point they have been asymptomatic in Fadi's case. I did advise him to maintain a healthy and high-fiber diet with plenty of fluids so as to avoid constipation. We did review potential signs and symptoms of diverticulitis and/or diverticular bleeding with the need to seek medical attention. He does not show any signs nor have any symptoms of liver disease at this time. His studies from one year ago appeared reassuring. I shall repeat an abdominal ultrasound along with the below laboratories for his one-year followup in regards to the previous history of chronic hepatitis C. If things remain well I advised Fadi to see me in one year for a followup visit. I did advise him to contact me sooner if he has any problems or questions I can be of assistance with. Fadi was comfortable with this plan. Thank you again for allowing me to participate in Fadi's care. I shall continue to keep you advised of his progress. 06/29/2024 Diverticulosis of large intestine without perforation or abscess without bleeding (ICD-10 - K57.30) Overall, Fadi appears well. He is not having any new or worrisome GI complaints. We did review the findings on his colonoscopy including the multiple polyps and diverticulosis. Based on the number of polyps with some serrated features, I did recommend a followup colonoscopy in 2026 for further screening and surveillance. In regard to the diverticulosis we did review that diagnosis but at this point they have been asymptomatic in Fadi's case. I did advise him to maintain a healthy and high-fiber diet with plenty of fluids so as to avoid constipation. We did review potential signs and symptoms of diverticulitis and/or diverticular bleeding with the need to seek medical attention. He does not show any signs nor have any symptoms of liver disease at this time. His studies from one year ago appeared reassuring. I shall repeat an abdominal ultrasound along with the below laboratories for his one-year followup in regards to the previous history of chronic hepatitis C. If things remain well I advised Fadi to see me in one year for a followup visit. I did advise him to contact me sooner if he has any problems or questions I can be of assistance with. Fadi was comfortable with this plan. Thank you again for allowing me to participate in Fadi's care. I shall continue to keep you advised of his progress. 06/29/2024 History of hepatitis C (ICD-10 - Z86.19) Overall, Fadi appears well. He is not having any new or worrisome GI complaints. We did review the findings on his colonoscopy including the multiple polyps and diverticulosis. Based on the number of polyps with some serrated features, I did recommend a followup colonoscopy in 2026 for further screening and surveillance. In regard to the diverticulosis we did review that diagnosis but at this point they have been asymptomatic in Fadi's case. I did advise him to maintain a healthy and high-fiber diet with plenty of fluids so as to avoid constipation. We did review potential signs and symptoms of diverticulitis and/or diverticular bleeding with the need to seek medical attention. He does not show any signs nor have any symptoms of liver disease at this time. His studies from one year ago appeared reassuring. I shall repeat an abdominal ultrasound along with the below laboratories for his one-year followup in regards to the previous history of chronic hepatitis C. If things remain well I advised Fadi to see me in one year for a followup visit. I did advise him to contact me sooner if he has any problems or questions I can be of assistance with. Fadi was comfortable with this plan. Thank you again for allowing me to participate in Fadi's care. I shall continue to keep you advised of his progress. 06/29/2024 Personal history of adenomatous and serrated colon polyps (ICD-10 - Z86.0101) Overall, Fadi appears well. He is not having any new or worrisome GI complaints. We did review the findings on his colonoscopy including the multiple polyps and diverticulosis. Based on the number of polyps with some serrated features, I did recommend a followup colonoscopy in 2026 for further screening and surveillance. In regard to the diverticulosis we did review that diagnosis but at this point they have been asymptomatic in Fadi's case. I did advise him to maintain a healthy and high-fiber diet with plenty of fluids so as to avoid constipation. We did review potential signs and symptoms of diverticulitis and/or diverticular bleeding with the need to seek medical attention. He does not show any signs nor have any symptoms of liver disease at this time. His studies from one year ago appeared reassuring. I shall repeat an abdominal ultrasound along with the below laboratories for his one-year followup in regards to the previous history of chronic hepatitis C. If things remain well I advised Fadi to see me in one year for a followup visit. I did advise him to contact me sooner if he has any problems or questions I can be of assistance with. Fadi was comfortable with this plan. Thank you again for allowing me to participate in Fadi's care. I shall continue to keep you advised of his progress. Plan Of Treatment Pending Test Test Name Order Date LIVER PROFILE 10/07/2017 LIVER PROFILE 06/22/2021 LIVER PROFILE 03/25/2023 LIVER PROFILE 06/26/2018 LIVER PROFILE 02/21/2020 LIVER PROFILE 11/18/2017 LIVER PROFILE 06/29/2024 CBC w DIFF 11/18/2017 CBC w DIFF 06/29/2024 CBC w DIFF 10/07/2017 CBC w DIFF 03/25/2023 CBC w DIFF 06/26/2018 CBC w DIFF 02/21/2020 PROTHROMBIN TIME (PT, INR) 02/21/2020 ALPHA-FETOPROTEIN,TUMOR MARKER 0 ALPHA-FETOPROTEIN,TUMOR MARKER 5 ALPHA-FETOPROTEIN,TUMOR MARKER 2 ALPHA-FETOPROTEIN,TUMOR MARKER 3 ALPHA-FETOPROTEIN,TUMOR MARKER 9 HEPATITIS C VIRAL LOAD 03/25/2023 HEPATITIS C VIRAL LOAD 06/26/2018 HEPATITIS C VIRAL LOAD 11/18/2017 HEPATITIS C VIRAL LOAD 10/07/2017 HEPATITIS C VIRAL LOAD 06/22/2021 US ABD 02/21/2020 HCV LIVER FIBROSIS, FIBRO TEST 3 HCV LIVER FIBROSIS, FIBRO TEST 2 HCVVL REFLEX GENOTYPE REFLEX NS5A 2017 US ABDOMEN COMP WITH ELASTOGRAPHY 2021 Prothrombin Time INR 03/25/2023 Prothrombin Time INR 06/29/2024 Liver Fibrosis Pnl 06/29/2024 US abdomen comp w elastography 5 US abdomen comp w elastography 3 Future Test Test Name Order Date COLONOSCOPY 05/09/2011 COLONOSCOPY 09/09/2017 COLONOSCOPY 03/25/2023 Next Appt Details Provider Name:Bert De Leon , 07/06/2025 01:00:00 PM, [address], [address], [place], [address], Insurance Providers Payer Name Payer Address Payer Phone Subscriber Number Group Number Insured Name Patient Relationship to Insured Coverage Start Date Coverage End Date MEDICARE OF [place] [address] [place] [id number] [phone] [id number] FADI GREENE Self - patient is the insured [employer] [address] [place] [address] [id number] FADI GREENE Self - patient is the insured Medical (General) History Medical History History ICD Code Tubular adenoma removed in ; colonoscopy in 2006 in [place] with removal of a colon polyp Asthma Hypertension Denies [place], stroke, kidney disease and di abetes Told of a + Hepatitis C anti body in 2016 and had a viral load in > 4 million in October of 2017 with a Hepatitis C Genotype of 1A. He was treated with 12 weeks of Epclusa in the summer. He finished this in December of 2017 and the hepatitis C viral load was still nondetectable in March 2018 and in January of 2019. His CBC and LFTs were normal in March of 2018 as well. He did not have a liver biopsy but his liver fibrosis score was F0. Nondetectable Hep C viral load in 08/2019. 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
--- OUTSIDE RECORDS SUMMARY | 2024-08-03 09:17 | XMS_ITS ---
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 Name Role Phone Rosa Isela AGUILAR, Enrique Primary Care Provider Bert Ohara Unavailable [phone] Allergies No Known Allergies REASON FOR VISIT Patient presents today for history of polyps, history of hepatitis c Medications Medication SIG (Take, Route, Frequency, Duration) Notes Start Date End Date Status Multivitamin Adult - as directed Orally Active Breo Ellipta 100-25 MCG/INH 1 puff Inhal ation Once a day Active Vitamin C Active Tamsulosin HCl 0.4 MG Oral for 90 Active metFORMIN HCl 500 MG 1 tablet with a pal l Oral twice a day Active Losartan Potassium-HCTZ 100-25 MG 1 tablet Orally Once a day Active Toprol XL 25 MG 1 tablet Orally Once a day Active Social History Tobacco Use: Social History Observation [...] Problem Status W/U Status Risk Notes Problem Personal history of adenomatous and serrated colon polyps (Z86.0101) Active confirmed Vital Signs Blood pressure systolic 00 mm Hg 06/29/19 25 Blood pressure diastolic 00 mm Hg 025 Height 73 in 06/29/2024 Weight 215 lbs 06/29/2024 BMI 28.36 kg/m2 06/29/2024 Encounters Encounter Location Date Provider Diagnosis [facility] [address] [place] [address] 06/29/2024 Bert De Leon Encounter for screen [...] Test Test Name Order Date LIVER PROFILE 06/29/2024 CBC w DIFF 06/29/2024 ALPHA-FETOPROTEIN,TUMOR MARKER 5 Prothrombin Time INR 06/29/2024 Liver Fibrosis Pnl 06/29/2024 US abdomen comp w elastography 5 Next Appt Details Follow Up: 1 Year, Reason: Provider Name:Bert De Leon , 07/06/2025 01:00:00 PM, [address] [place] [address], [address], [place], [address], Progress Notes * NEISHA GREENEINDOB:1955 (69 yo M)Acc No.[id number]:06/29/2024 Progress Notes Patient:FADI PRESSLEY Provider:?Bert De Leon MD :1955???Age:69 Y???Sex:Male Jake e:06/29/2024 Address:[address] [place], [place] [id number] Pcp:Enrique Natarajan MD Subjective: * Chief Complaints: * ???Patient presents today fo r history of polyps, history of hepatitis c * HPI: ???incontinence:? I saw Fadi in followup today in regard to his previous history of chronic hepatitis C, history of colon polyps, and history of diverticulosis. I last saw Fadi in May of 2023, at which time he underwent a followup colonoscopy with removal of several colon polyps including tubular adenomas and serrated polyps. Since that time has been feeling well. His bowel movements have been regular and without any signs of bleeding. He enjoys a good appetite and denies any significant heartburn or dysphagia. He denies abdominal pain, jaundice, nor unintentional weight loss. He denies any known family history of colon cancer. Laboratories in April 2023 revealed a normal CBC with platelet count, normal PT with INR, normal liver profile, normal alpha-fetoprotein level, a normal liver fibrosis score, and a non-detectable hepatitis C viral load. An abdominal ultrasound in April 2023 describes a fatty liver but no sign of any significant liver disease, splenomegaly, ascites, or significant liver fibrosis based on the elastography. We also reviewed that the colonoscopy from last year did reveal diverticulosis. He has not had any history of diverticulitis nor diverticular bleeding. He does tend to stay on a high-fiber diet with a daily salad. He does think that diet helps his bowel movements remain regular. * ROS:?General/Constitutional:?Change in appetite?denies.?Chills?denies.?Fatigue?denies.?Ophthalmologic:?Patient denies? Negative..?ENT:?Patient denies?Negative..?Respiratory:?Patient denies?No coughing/hemoptysis..?Cardiovascular:?Patient denies? No chest pain/orthopnea..?Gastrointestinal:?Comments?See HPI for details.?Genitourinary:?Patient denies? No dysuria/hematuria..?Musculoskeletal:?Patient denies? No specific arthralgias/myalgias..?Skin:?Patient denies?No rash/pruritus..?Neurologic:?Patient denies? No headaches/seizures..?Psychiatric:?Patient denies?Negative..? * Medical History:? * Surgical History:?Broken leg Tonsillectomy Knee surgery Squamous cell cancer removed from the back of the left calf * Hospitalization/Major Diagno stic Procedure:?No Hospitalization History. * Family History:?Father: dece ased 93 yrs, diagnosed with Colon polyps, HTN (hypertension).?Mother: alive 91 yrs, diagnosed with Diabetes.? No colorectal cancer, no liver disease. * Social History:?Tobacco Use:?Tobacco Use/Smoking?Patient is a?former smoker,?When did you stop smoking??02/07/1993,?How long has it been since you last smoked??> 10 years.?Drugs/Alcohol:?Alcohol Screen?Did you have a drink containing alcohol in the past year??Yes,?How often did you have a drink containing alcohol in the past year??2 to 3 times a week (3 points),?How many drinks did you have on a typical day when you were drinking in the past year??1 or 2 drinks (0 point),?How often did you have 6 or more drinks on one occasion in the past year??Never (0 point),?Points?3,?Interpretation?Negative.?Miscellaneous:?Marital status: . Occupation: Retired from [employer] in [place].. ???He is a former smoker, and uses only occasional alcohol. * Medications:?TakingToprol XL 25 MG Tablet Extended Release 24 Hour 1 tablet Orally Once a day Losartan Potassium-HCTZ 100-25 MG Tablet 1 tablet Orally Once a day Breo Ellipta 100-25 MCG/INH Aerosol Powder Breath Activated 1 puff Inhalation Once a day Multivitamin Adult - Tablet as directed Orally Vitamin C metFORMIN HCl 500 MG Tablet 1 tablet with a meal Oral twice a day Tamsulosin HCl 0.4 MG Capsule Oral Medication List reviewed and reconciled with the patientTaking Toprol XL 25 MG Tablet Extended Release 24 Hour 1 tablet Orally Once a day Taking Losartan Potassium-HCTZ 100-25 MG Tablet 1 tablet Orally Once a day Taking Breo Ellipta 100-25 MCG/INH Aerosol Powder Breath Activated 1 puff Inhalation Once a day Taking Multivitamin Adult - Tablet as directed Orally Taking Vitamin C Taking metFORMIN HCl 500 MG Tablet 1 tablet with a meal Oral twice a day Taking Tamsulosin HCl 0.4 MG Capsule Oral Medication List reviewed and reconciled with the patient * Allergies:?N.K.D.A.yes[Aller gies Verified] Objective: * Vitals:?Wt: 215 lbs, Ht: 73 in, BMI:28.36Index, BP: 00/00 mm Hg. * Examination: ???General Examination: ?GENERAL APPEARANCE:?pleasant, well nourished, well developed, in no acute distress.?EYES:?sclera non-icteric.?ORAL CAVITY:?mucosa moist.?NECK/THYROID:?no cervical lymphadenopathy, neck supple.?SKIN:?nonjaundiced, no spider angiomata..?HEART:?S1, S2 normal.?LUNGS:?clear to auscultation bilaterally.?ABDOMEN:?normal bowel sounds, no guarding or rigidity, no hepatosplenomegaly, no masses palpable, soft, nontender, nondistended..?EXTREMITIES:?no edema.?NEUROLOGIC:?alert and oriented.? Assessment: * Assessment: 1.?Diverticulosis of large i ntestine without perforation or abscess without bleeding - K57.30 (Primary)???2.?Encounter for screening for malignant neoplasm of colon - Z12.11???3.?History of hepatitis C - Z86.19???4.?Personal history of adenomatous and serrated colon polyps - Z86.0101??? Overall, Fadi appears well. He is not [...] to keep you advised of his progress. Plan: * Treatment: * Procedure Codes:?3017F COLOR ECTAL CA SCREEN DOC [id number] TOBACCO [id number] BP SCR NOT PRFRM REC REASON NOS * Preventive Medicine:? ??Counseling:?Care goal follow-up plan:?Above Normal BMI Follow-up?Giving encouragement to exercise,?BMI management provided?Yes.? ??Screenings:?Fall Risk Screening?Fall Risk Assessment:?No falls in the past year,?Screening:?No falls in the past year,?Assessment:?Not performed, no reason specified,?Plan of Care:?Not documented, no reason specified.? * Follow Up:?1 Year * * Sign off status: Completed true * Provider:?Bert De Leon MD Date:? 025 Generated for Kevin sanchez/Юлия/eTrankatinaitting on:?08/03/2024 09:17 AM EDT History and Physical Notes * HPI (History of Present Illness) Category Sub-Category Detail Notes Category Not es incontinence I saw Fadi in followup today in regard to his previous history of chronic hepatitis C, history of colon polyps, and history of diverticulosis. I last saw Fadi in May of 2023, at which time he underwent a followup colonoscopy with removal of several colon polyps including tubular adenomas and serrated polyps. Since that time has been feeling well. His bowel movements have been regular and without any signs of bleeding. He enjoys a good appetite and denies any significant heartburn or dysphagia. He denies abdominal pain, jaundice, nor unintentional weight loss. He denies any known family history of colon cancer. Laboratories in April 2023 revealed a normal CBC with platelet count, normal PT with INR, normal liver profile, normal alpha-fetoprotein level, a normal liver fibrosis score, and a non-detectable hepatitis C viral load. An abdominal ultrasound in April 2023 describes a fatty liver but no sign of any significant liver disease, splenomegaly, ascites, or significant liver fibrosis based on the elastography. We also reviewed that the colonoscopy from last year did reveal diverticulosis. He has not had any history of diverticulitis nor diverticular bleeding. He does tend to stay on a high-fiber diet with a daily salad. He does think that diet helps his bowel movements remain regular Examination Category Sub-Category Detail Notes Category Not es General Examination GENERAL APPEARANCE: pleasant , well nourished, well developed, in no acute distress EYES: sclera non-icteric NECK/THYROID: no cervical lymphade nopathy, neck supple HEART: S1, S2 normal LUNGS: clear to auscultatio n bilaterally ABDOMEN: normal bowel sounds, no guarding or rigidity, no hepatosplenomegaly, no masses palpable, soft, nontender, nondistended. NEUROLOGIC: alert and oriented SKIN: nonjaundiced, no spi juan diego angiomata. EXTREMITIES: no edema ORAL CAVITY: mucosa moist
--- OUTSIDE RECORDS SUMMARY | 2024-08-03 09:17 | XMS_ITS ---
Author Organization [facility] Address [address] [place] [address] Care Team Providers Care Biochemistry Technician Name Role Phone Rosa Isela AGUILAR, Enrique Primary Care Provider Bert Ohara Unavailable [phone] REASON FOR VISIT screening,hx polyps Problems Problem Type SNOMED Code ICD Code Onset Dates Problem Status W/U Status Risk Notes Problem Diverticular disease of colon (347825653) Diverticulosis of large intestine without perforation or abscess without bleeding (K57.30) Active confirmed Encounters Encounter Location Date Provider Diagnosis [facility] [place] Outpatient [address], [place] [id number] 06/18/2023 Bert De Leon Encounter for scre ening colonoscopy Z12.11 ; Colon polyps K63.5 ; Diverticulosis of large intestine without perforation or abscess without bleeding K57.30 and Other hemorrhoids K64.8 Assessments Encounter Date Diagnosis (ICD Code) Assessment Notes Treatment Notes Treatment Clinical Notes Section Notes 06/18/2023 Encounter for screening colonoscopy (ICD-10 - Z12.11) 06/18/2023 Colon polyps (ICD-10 - K63.5) 06/18/2023 Diverticulosis of large intestine without perforation or abscess without bleeding (ICD-10 - K57.30) 06/18/2023 Other hemorrhoids (ICD-10 - K64.8) Plan Of Treatment Next Appt Details Provider Name:Bert Amaya Haley , 07/06/2025 01:00:00 PM, [address], [address], [place], [address], Progress Notes * SALVATORE GREENE:1955 (69 yo M)Acc No.[id number]:06/18/2023 COLON WITH MAC Patient:?FADI GREENE Provider:?Bert De Leon MD :1955???Age:68 Y???Sex:Male Jake e:06/18/2023 Address:[address] [place], [place] [id number] Pcp:Enrique Natarajan MD Subjective: * Chief Complaints: * ???1. Screening,hx polyps. * Medical History:? Objective: * Vitals:? Assessment: * Assessment: 1.?Encounter for screening c olonoscopy - Z12.11 (Primary)???2.?Colon polyps - K63.5???3.?Diverticulosis of large intestine without perforation or abscess without bleeding - K57.30???4.?Other hemorrhoids - K64.8??? Plan: * Treatment: * Procedure Codes:?72557 LESIO N REMOVAL COLONOSCOPY, Modifiers: PT , 0529F INTRVL 3+YRS PTS CLNSCP DOCD, 0528F RCMND FLW-UP 10 YRS DOCD, Modifiers: 1P * * The named appointment provid er may or may not be the originator of this progress note, and it is not deemed complete until electronically signed by the appointment provider. Sign off status: Pending * Provider:?Bert De Leon MD Date:? 024 Generated for Kevin sanchez/Юлия/eTkalynsmitting on:?08/03/2024 09:17 AM EDT
--- OUTSIDE RECORDS SUMMARY | 2024-08-03 09:17 | XMS_ITS | Encounter Summary ---
Author Name [facility] [place] [facility] [place] Address [address] [place] [id number] Care Team Providers Care [employer] Operator Name Role Phone CALIXTO YING Primary Care Provider Unavailabl e Insurance Providers: [...] PART A Feb 16, 2019 PART A [id number] MUNDO GREENE PATIENT MEDICARE (WNR) MEDICARE (M) PART B Feb 16, 2019 PART B [id number] MUNDO GREENE PATIENT FOR LIFE TFL* Feb 16, 2019 [id number] MUNDO GREENE PATIENT Selected Encounter This section includes the information on record at [place] for the Encounter. Date/Time Encounter Type Encounter Description Reason Provider Source Aug 29, 2023 11:00 AM OFFICE O/P EST LOW 20 MIN PRIMARY CARE/MEDICINE ICD-10-CM E11.9 Type 2 diabetes mellitus without complications CALIXTO YING Loy Encounter Template Text not used by [place] Assessments - Encounter Diagnoses This section includes the primary and secondary diagnoses documented for the Encounter. Date/Time Primary/Secondary Diagnosis Diagnosis Name Provider Source Aug 29, 2023 12:49 PM PRIMARY Type 2 diabetes mellitus without complications CALIXTO YING [facility] Aug 29, 2023 12:49 PM SECONDARY Encounter for immunization ALESHA IZAGUIRRE [facility] Plan of Treatment: Future Appointments (+ 6 months) and Future Tests (+/- 45 days) The Plan of Treatment section includes future care activities for the [facility] [place] [facility] This section includes future appointments and future orders which are active, pending or scheduled. Future Appointments This section includes appointments that were scheduled to occur 6 months from the date of the Encounter, up to a maximum of 20 appointments. The data comes from all [place] treatment facilities. Appointment Date/Time Appointment Type Appointme nt Facility Name September 18, 2023 10:00 AM AMBULATORY - NONE [facility] Oct 23, 2023 09:15 AM AMBULATORY - NONE [facility] Nov 27, 2023 09:00 AM AMBULATORY - NONE [facility] Dec 04, 2023 09:00 AM AMBULATORY - NONE [facility] Dec 04, 2023 10:45 AM AMBULATORY - NONE [facility] Dec 11, 2023 09:00 AM AMBULATORY - NONE [facility] Dec 18, 2023 09:00 AM AMBULATORY - NONE [facility] Dec 25, 2023 09:00 AM AMBULATORY - NONE [facility] Jan 01, 2024 09:00 AM AMBULATORY - NONE [facility] Jan 08, 2024 09:00 AM AMBULATORY - NONE [facility] Jan 15, 2024 09:00 AM AMBULATORY - NONE [facility] Jan 22, 2024 09:00 AM AMBULATORY - NONE [facility] Feb 05, 2024 09:00 AM AMBULATORY - NONE [facility] Feb 12, 2024 09:00 AM AMBULATORY - NONE [facility] Lab Results: +/- 30 days of the encounter This section includes the Chemistry and Hematology Lab Results on record with [place] for the patient. Radiology Reports and Pathology Reports are provided separately, in subsequent sections. Lab Results This section contains the Chemistry/Hematology Results that were resulted 30 days before or 30 daysafter the date of the Encounter. Date/Time Source Result Type Result - Unit Interpretation Reference Range Comment Aug 26, 2023 09:39 AM [facility] BASIC METABOLIC PANEL (fasting) Specimen Type: SERUM No comment entered. Ordering Provider: CALIXTO YING Report Released Date/Time: Aug 15, 2023 12:34 PM Reporting Lab: [address] [address] Performing Lab: [address] [address] UREA NITROGEN 16 mg/dL 7-25 GLUCOSE 169 mg/dL H 65-100 SODIUM 139 mmol/L 135-145 POTASSIUM 3.9 mmol/L 3.5-5.0 CHLORIDE 100 mmol/L 100-110 CO2 28 meq/L 20-30 CREATININE, Serum 0.82 mg/dL 0.50-1.40 eGFR(CKD-EPI 2020) >90 mL/min >60 Aug 26, 2023 09:39 AM [facility] CBC AND DIFF (AUTO) Specimen Type: BLOOD No comment entered. Ordering Provider: CALIXTO YING Report Released Date/Time: Aug 15, 2023 12:34 PM Reporting Lab: [facility] [address] [facility] [phone] Performing Lab: [address] [address] WBC 6.47 10*3/uL 4.50-11.00 RBC 4.59 10*6/uL 4.23-5.66 HGB 14.3 g/dL 12.8-17 HCT 42.7 39.2-50.4 MCV 93.0 fL 82-99 MCHC 33.5 g/dL 30.8-35.1 PLT 230 10*3/uL 140-360 RDW-CV 12.8 12.0-16.0 Hardeman, Abs 0.56 10*3/uL 0.30-1.10 MCH 31.2 pg 26.2-32.6 Neut % 72.1 43.7-75.8 Lymph % 16.8 14.0-42.3 Hardeman % 8.7 5.1-13.7 Eos % 1.4 0.4-6.8 Baso % 0.5 0.1-2.0 Neut, Abs 4.67 10*3/uL 2.20-7.60 Lymph, Abs 1.09 10*3/uL 1.00-3.20 Eos, Abs 0.09 10*3/uL 0.03-0.44 Baso, Abs 0.03 10*3/uL 0.01-0.13 Immature Gran % 0.5 0.0-0.7 Immature Gran, Abs 0.03 10*3/uL 0.00-0.06 Aug 26, 2023 09:39 AM [facility] LIVER FUNCTION Specimen Type: SERUM No comment entered. Ordering Provider: CALIXTO YING Report Released Date/Time: Aug 15, 2023 12:34 PM Reporting Lab: [address] [phone] Performing Lab: [address] [address] PROTEIN,TOTAL 6.5 g/dL 6.0-8.3 ALBUMIN 4.0 g/dL 3.5-5.0 ALKALINE PHOSPHATASE 54 U/L 40-150 AST 14 U/L 5-34 ALT 14 U/L BILIRUBIN, TOTAL 0.7 mg/dL 0.2-1.2 Aug 26, 2023 09:39 AM [facility] LIPID PANEL FASTING Specimen Type: SERUM No comment entered. Ordering Provider: CALIXTO YING Report Released Date/Time: Aug 15, 2023 12:34 PM Reporting Lab: [address] [address] Performing Lab: [address] [address] CHOLESTEROL 221 mg/dL H TRIGLYCERIDE 95 mg/dL 0-150 LDL calculated 138 mg/dL H 0-129 CHOL/HDL 3.5 HDL CHOLESTEROL 64 mg/dL H 40-60 Aug 26, 2023 09:39 AM [facility] TSH Specimen Type: SERUM No comment entered. Ordering Provider: CALIXTO YING Report Released Date/Time: Aug 15, 2023 12:34 PM Reporting Lab: [address] [address] Performing Lab: [address] [address] TSH 1.24 u[IU]/mL 0.35-5.00 Aug 26, 2023 09:39 AM [facility] PSA Specimen Type: SERUM No comment entered. Ordering Provider: CALIXTO YING Report Released Date/Time: Aug 15, 2023 12:34 PM Reporting Lab: [address] [phone] Performing Lab: [address] [address] PSA 4.03 ng/mL H 0.00-4.00 Aug 26, 2023 09:39 AM [facility] HEMOGLOBIN A1C PANEL Specimen Type: BLOOD Comment: Values obtained from A1C measurements can vary. For atypical A1C assays, a reported value of 7.0 could actually be between 6.72 and 7.28 if measured by a reference method. A reported value of 9.0 could actually be between 8.73 and 9.27. Ref: http://www.ngs p.org/CAPdata. asp Ordering Provider: CALIXTO YING Report Released Date/Time: Aug 15, 2023 12:34 PM Reporting Lab: [address] [phone] Performing Lab: [address] [phone] HEMOGLOBIN A1C 7.0 H 4.0-5.6 Aug 26, 2023 09:39 AM [facility] HEPATITIS C ANTIBODY (HCV)-ARC Specimen Type: SERUM Comment: Hep C Ab : Anti-HCV Reactive; HCV viral load testing will be performed and reported separately. If clinical suspicion is low and a false-positive reaction is suspected, consider repeat testing. Ordering Provider: CALIXTO YING Report Released Date/Time: Aug 15, 2023 12:34 PM Reporting Lab: [facility] [address] [facility] [address] Performing Lab: [address] [phone] HEPATITIS C ANTIBODY REACTIVE HH NON-REACTI VE Aug 26, 2023 09:39 AM [facility] URINALYSIS CLEAN CATCH Specimen Type: URINE Comment: If Glucose = >500 and Ketones are positive, please alert the Physician. Ordering Provider: CALIXTO YING Report Released Date/Time: Aug 15, 2023 12:34 PM Reporting Lab: [facility] [address] [facility] [address] Performing Lab: [address] [address] UA COLOR Light-Yellow Yellow UA APPEARANCE Clear Clear UA GLUCOSE NEGATIVE mg/dL Negative UA KETONES NEGATIVE mg/dL Negative UA BLOOD NEGATIVE mg/dL Negative UA PROTEIN NEGATIVE mg/dL Negative UA NITRITE NEGATIVE mg/dL Negative UA BILIRUBIN NEGATIVE mg/dL Negative UA SPECIFIC GRAVITY 1.022 1.016-1.02 2 UA pH 7.0 5.0-9.0 UA UROBILINOGEN <2.0 mg/dL <2.0 UA LEUKOCYTE NEGATIVE Negative Aug 26, 2023 09:39 AM [facility] MICROALBUMIN CREATININE RATIO PANEL Specimen Type: URINE No comment entered. Ordering Provider: CALIXTO YING Report Released Date/Time: Aug 15, 2023 12:36 PM Reporting Lab: [address] [address] Performing Lab: [address] [address] MICROALBUMIN/C REATININE RATIO 4.4 mg/g 0-29.9 MICROALBUMIN,Q UANTITATIVE 0.5 mg/dL RR UNAVAIL CREATININE URINE 112.80 mg/dL Aug 26, 2023 09:39 AM [facility] HCV RNA PCR PANEL(WHV) Specimen Type: SERUM Comment: Assay performed using the [employer] HCV nucleic acid amplification test for the quantitation of HCV RNA. This assay is intended for use as an aid in the diagnosis of HCV infection and in the management of HCV infected patients undergoing antiviral therapy. This test can quantitate HCV RNA over the range of 12 IU/mL to 1.0e+08 IU/mL. For testing performed prior to December 01, 2017, call the virology laboratory if viral load method and assay performance information is needed. Ordering Provider: CALIXTO YING Report Released Date/Time: Aug 26, 2023 12:23 PM Reporting Lab: [facility] [address] [facility] [address] Performing Lab: [facility] [address] [facility] [phone] HCV-RNA,DETECT ION Not Detected Not Detected Vital Signs: All taken on the encounter date This section contains inpatient and outpatient Vital Signs collected on the date of the Encounter. Date/Time Temperature Pulse Blood Pressure Respiratory Rate SP02 Pain Height Weight Body Mass Index Source Aug 29, 2023 10:59 AM 97.8 79 120/70 16 97 0 217 29 [facility] Immunizations: All administered on the encounter date This section contains immunizations associated to the Encounter. Immunization Series Date Issued Reaction Comments COVID-19 (MODERNA), MRNA, LN P-S, PF, 50 MCG/0.5 ML (AGES 12+ YEARS) 1 Aug 29, 2023 Social History: Smoking Status (Most current) and Tobacco Use (All prior to encounter date) This section includes the most current, and the historical, smoking and tobacco- related health factors from the [place] facility where the Encounter took place. Current Smoking Status This section includes the most current smoking, or tobacco-related health factor, from the [place] facility where the Encounter took place. Date/Time Current Smoking Status Comment Facil ity Aug 29, 2023 11:00 AM VA-TOBACCO FORMER USER [facility] Tobacco Use History This section includes a history of the smoking, or tobacco-related health factors, that were collected on or before the date of the Encounter. The data comes from the [place] facility where the Encounter took place. Date/Time Smoking Status/Tobacco Use Comment F acility Aug 29, 2023 11:00 AM [place]-TO[place]AC[place] QUIT 15 YRS OR MORE [facility] Aug 28, 2022 11:00 AM VA-TOBACCO FORMER USER [facility] Aug 28, 2022 11:00 AM VA-TOBACCO QUIT 15 YRS OR MORE [facility] Aug 31, 2021 10:30 AM VA-TOBACCO FORMER USER [facility] Aug 31, 2021 10:30 AM VA-TOBACCO QUIT 15 YRS OR MORE [facility] Jun 29, 2020 01:30 PM VA-TOBACCO FORMER USER [facility] Jun 29, 2020 01:30 PM VA-TOBACCO QUIT 15 YRS OR MORE [facility] Mar 19, 2019 03:54 PM VA-TOBACCO FORMER USER [facility] Mar 19, 2019 03:54 PM VA-TOBACCO QUIT 15 YRS OR MORE [facility] Encounter Notes: All associated encounter notes This section contains the clinical notes associated to the Encounter. Date/Time Encounter Note(s) Provider Source Aug 29, 2023 11:08 AM PHYSICIAN NOTE: LOCAL TITLE: MD NOTE STANDARD TITLE: PHYSICIAN NOTE DATE OF NOTE: AUG 29, 2023@11:08 ENTRY DATE: AUG 29, 2023@11:08:02 AUTHOR: CALIXTO YING EXP COSIGNER: URGENCY: STATUS: COMPLETED Patient Name: FADI GREENE VITALS: Patient temperature: 97.8 F [36.6 C] (08/29/2023 10:59) Blood pressure: 120/70 (08/29/2023 10:59) Patient height: 73 in [185.4 cm] (06/29/2019 14:28) Patient weight: 217 lb [98.43 kg] (08/29/2023 10:59) Patient BMI: BMI: 28.7 Patient pulse: 79 (08/29/2023 10:59) Patient respiration: 16 (08/29/2023 10:59) Patient Pulse Oximetry: 97% (08/29/2023 10:59) Pain Ratin (08/29/2023 10:59) Active [facility] Medications: Active Outpatient Medications (including Supplies): Active Outpatient Medications Status 1) CARBOXYMETHYLCELLULOSE NA 0.5% OPH SOLN INSTILL 1 ACTIVE DROP INTO EACH EYE FOUR TIMES DAILY NEEDED FOR DRY EYE Active Non-VA Medications Status 1) Non-VA ALBUTEROL 90MCG (CFC-F) 200D ORAL INHL 2 PUFFS ACTIVE BY MOUTH FOUR TIMES DAILY NEEDED 2) Non-VA FLUTIC 200/VILANTEROL 25MCG 30D ORAL INH 1 ACTIVE PUFF BY MOUTH ONCE DAILY 3) Non-VA HCTZ 25MG/LOSARTAN 100MG TAB 1 TABLET BY MOUTH ACTIVE ONCE DAILY 4) Non-VA METFORMIN HCL 500MG TAB 500MG BY MOUTH TWICE ACTIVE DAILY 5) Non-VA METOPROLOL SUCCINATE 25MG SA TAB 25MG BY MOUTH ACTIVE ONCE DAILY 6 Total Medications Remote Medications: No Active Remote Medications for this patient Chief complaint: Diabetes mellitus All primary care Private Dr. Guevara in [place] History of present illness Patient takes metformin for diabetes. Feels well today with no complaints. Stays at a good weight. Stays active with activities Review of systems No chest pain or dyspnea No abdominal pain No trouble urinating No fever or chills No cough Physical examination: Well developed well nourished in no apparent distress Vitals as above Heart: rrr, no m/r/g Lungs: clear to ausculatation Abdomen: soft, +bs, nontender, nondistended, no masses or guarding Extremities: no edema, no cyanosis or clubbing Neurologic: alert, normal gait, normal senory and motor, EOMI, PERRLA, conjunctiva and sclera normal Psychiatric: answers questions appropriately, normal/coherent speech HEENT: mucious membranes moist Ears and pharynx: no erythema, tympanic membranes normal Neck: supple Urogenital: normal external male, no masses Skin: warm, dry, no lesions MICROALB/CR RATIO: 4.4 MICROALBUMIN URINE: 0.5 CREATININE URINE: 112.80 HEPATITIS C AB: REACTIVE H* Color, Urine ([place] 4280): Light-Yellow Appearance, Urine (AX 4280): Clear Glucose, Urine (AX 4280): NEGATIVE Ketones, Urine (AX 4280): NEGATIVE Blood, Urine (AX 4280): NEGATIVE Protein, Urine (AX 4280): NEGATIVE Nitrite, Urine (AX 4280): NEGATIVE Bilirubin, Urine (AX 4280): NEGATIVE Specific [place], (AX 4280): 1.022 pH, Urine ([id number]): 7.0 Urobilinogen, Urine (AX 4280): <2.0 Leukocyte Esterase, (AX 4280): NEGATIVE GLUCOSE: 169 H UREA NITROGEN: 16 SODIUM: 139 POTASSIUM: 3.9 CHLORIDE: 100 CO2: 28 CHOLESTEROL: 221 H PROTEIN,TOTAL: 6.5 ALBUMIN: 4.0 ALKALINE PHOSPHATASE: 54 SGOT: 14 SGPT: 14 TRIGLYCERIDE: 95 LDL CHOL: 138 H CHOL/HDL RATIO: 3.5 PROSTATIC SP ANTIGEN: 4.03 H HDL: 64 H BILIRUBIN,TOT.: 0.7 TSH (Access): 1.24 CREATININE-EGFR: 0.82 eGFR CKD-EPI 2020: >90 HGB A1C (WR): 7.0 H WBC: 6.47 RBC: 4.59 HGB: 14.3 HCT: 42.7 MCV: 93.0 MCHC: 33.5 RDW: 12.8 PLT: 230 MCH: 31.2 Neut %: 72.1 Lymph %: 16.8 Hardeman %: 8.7 Eos %: 1.4 Baso %: 0.5 Neut, Abs: 4.67 Lymph, Abs: 1.09 Hardeman, Abs: 0.56 Eos, Abs: 0.09 Baso, Abs: 0.03 Immature Granulocytes %: 0.5 Immature Granulocytes, Abs: 0.03 HCV RNA-RT: Not Detected I discussed above test results with patient Assessment and plan: 1. Diabetes mellitus: Hemoglobin A1c satisfactory Plan continue metformin Follow-up 1 year clinic visit and lab Medication Reconciliation: Outpatient: Has the patient been taking medications as documented in the EMLR? YES: The patient has been taking medications as documented in the EMLR. Essential Medication List for Review used to complete this medication reconciliation. INCLUDED IN THIS LIST: Alphabetical list of active outpatient prescriptions dispensed from this [facility] (local) and dispensed from another [place] or [place] facility (remote) as well as inpatient orders (local, pending and active), local clinic medications, locally documented non-VA medications, and local prescriptions that have or been discontinued in the past 90 days. - All changes in medications, including all non-VA/Herbal/OTC medications were entered into CPRS. - If there were any medications the patient should no longer take, they were discontinued. - The patient/caregiver was instructed to update this list, discard old lists, and take this list to the next appointment, whether with a VA or non-VA provider. Sexual Orientation: The patient thinks of their sexual orientation as: Straight or Heterosexual BMI>30/>24.99 High Risk: At this visit, the health risks of obesity were reviewed and discussed with the , and the benefits of a weight management treatment program, such as MOVE! was discussed and offered to the [place]. After discussing the health risks of being overweight or obese and providing information about available weight management treatment, the agreed to participate in the MOVE program and referral to the [facility] MOVE program was made. If MOVE program not availble, referred to Nutrition. Follow Up Colonoscopy: Colonoscopy is due based on information available to this reminder. Prior/outside Colonoscopy results: 3 polyps, verbal from patient Date: May 19, 2023 Colonoscopy reminder set 3 years from AUG 29, 2023. Assess Statin Use - Lipids (CVD/DM): The patient declines to be treated with a statin. PAVE Foot Check: A complete foot check was completed at this encounter. VISUAL INSPECTION: Includes inspection for skin breaks, deformity, erythema, trauma, pallor on elevation, dependent rubor, nail deformities, extensive callus and pitting edema. Visual exam results: Normal PEDAL PULSES: Includes palpation of dorsalis and posterior tibial pulses and signs/symptoms of vascular compromise like pain, pallor, parasthesia or paralysis. Present (even if diminished) SENSORY CHECK: Includes 10 gram Monofilament (Dewitt-John) test of sensation. Intact (Greater than or equal to 80% of sites checked) Abnormal (Less than 80% of sites checked): Intact LOW-RISK: LOW RISK INFORMATION PROVIDED: 1. Advised patient not to walk barefoot. 2. Explained the importance of daily foot checks for changes. 3. Stressed the importance of daily foot hygiene, including bathing and complete drying. /del/ Calixto Payan. MD Rosemarie Staff Physician Signed: 08/29/2023 12:49 CALIXTO YING [place] [facility] Aug 29, 2023 11:02 AM PREVENTIVE MEDICINE NURSING NOTE: LOCAL TITLE: CLINICAL REMINDERS/NURSING STANDARD TITLE: PREVENTIVE MEDICINE NURSING NOTE DATE OF NOTE: AUG 29, 2023@11:02 ENTRY DATE: AUG 29, 2023@11:03:02 AUTHOR: EUGENE IZAGUIRRE EXP COSIGNER: URGENCY: STATUS: COMPLETED CLINICAL REMINDERS/NURSING Has ADDENDA Tobacco Pack Year History: Patient used cigarettes in the past, but quit and does not currently use them: Quit smoking GREATER THAN OR EQUAL to 15 years ago. Suicide Screen: C-SSRS Screening [place] Suicide Severity Rating Scale (C-SSRS) screener 1. Over the past month, have you wished you were or wished you could go to sleep and not wake up? No 2. Over the past month, have you had any actual thoughts of killing yourself? No 3. Over the past month, have you been thinking about how you might do this? Response not required due to responses to other questions. 4. Over the past month, have you had these thoughts and had some intention of acting on them? Response not required due to responses to other questions. 5. Over the past month, have you started to work out or worked out the details of how to kill yourself? Response not required due to responses to other questions. 6. If yes, at any time in the past month did you intend to carry out this plan? Response not required due to responses to other questions. 7. In your lifetime, have you ever done anything, started to do anything, or prepared to do anything to end your life (for example, collected pills, obtained a gun, gave away valuables, went to the roof but didn't jump)? No 8. If YES, was this within the past 3 months? Response not required due to responses to other questions. Homelessness/Food Insecurity Screen: In the past 2 months, have you been living in stable housing that you own, rent, or stay in as part of a household? Yes - Living in stable housing. Are you worried or concerned that in the next 2 months you may NOT have stable housing that you own, rent, or stay in as part of a household? No - Not worried about housing near future The reports the following: Within the past 12 months, you worried whether your food would run out before you got money to buy more. Never true Within the past 12 months, the food you bought just didn't last and you didn't have money to get more. Never true Depression Screening: Perform PHQ-2 A PHQ-2 screen was performed. The score was 0 which is a negative screen for depression. Over the past two weeks, how often have you been bothered by the following problems? 1. Little interest or pleasure in doing things Not at all 2. Feeling down, depressed, or hopeless Not at all Tobacco Use Screening: The patient is a former tobacco user. The patient quit fifteen or more years ago. Alcohol Use Screen (AUDIT-C): Alcohol Screen: SCREEN FOR ALCOHOL (AUDIT-C) An alcohol screening test (AUDIT-C) was negative (score=4). 1. How often did you have a drink containing alcohol in the past year? Consider a drink to be a 12 ounce can or bottle of regular beer, 8 ounces of malt liquor, a 5 ounce glass of table wine, or a 1.5 ounce shot of liquor (like scotch, gin, or vodka). Four or more times a week 2. How many drinks containing alcohol did you have on a typical day when you were drinking in the past year? One or two drinks 3. How often did you have six or more drinks on one occasion in the past year? Never /es/ EUGENE IZAGUIRRE LPN Signed: 08/29/2023 11:07 08/29/2023 ADDENDUM STATUS: COMPLETED COVID-19 Immunization: Moderna Monovalent (Spikevax) Administered: COVID-19 (MODERNA), MRNA, LNP-S, PF, 50 MCG/0.5 ML (AGES 12+ YEARS) Date Administered: Aug 29, 2023 11:00 Series: Series 1 [employer] Maker: MODERNA [employer] Lot: [id number] Exp Date: Sep 10, 2023 [facility]: [phone] Admin Route/Site: INTRAMUSCULAR/LEFT DELTOID Dosage: 0.3mL Vaccine Information Statement(s): COVID-19 MRNA VACCINE (12+ YRS) VACCINE VIS Mar 06, 2023 ([facility]) Order By: Policy Administered By: Eugene Izaguirre Vaccine administered without complications. The patient was advised to remain in the facility for 15 minutes post vaccination. /del/ EUGENE IZAGUIRRE LPN Signed: 08/29/2023 11:48 JAR[facility] I[facility]AGUIRRE [facility]
--- OUTSIDE RECORDS SUMMARY | 2024-08-03 09:18 | XMS_ITS ---
Author Name [facility] Organization [facility] Address [address] [place] [address] Care Team Providers Care Spa Attendant Name Role Phone DEONNA SAIDA Primary Care Provider Unavailabl e Insurance Providers: [...] PART A Feb 16, 2019 PART A [id number] MUNDO GREENE PATIENT MEDICARE (WNR) MEDICARE (M) PART B Feb 16, 2019 PART B [id number] MUNDO GREENE PATIENT FOR LIFE TFL* Feb 16, 2019 [id number] MUNDO GREENE PATIENT Selected Encounter This section includes the information on record at [place] for the Encounter. Date/Time Encounter Type Encounter Description Reason Provider Source Oct 23, 2023 09:15 AM QNHP OL DIG ASSMT&MGMT 5-10 NUTRITION/DIETETI CS-INDIVIDUAL ICD-10-CM E11.9 Type 2 diabetes mellitus without complications LAURITA TORRES [place] Encounter Template Text not used by [facility] Assessments - Encounter Diagnoses This section includes the primary and secondary diagnoses documented for the Encounter. Date/Time Primary/Secondary Diagnosis Diagnosis Name Provider Source Oct 23, 2023 10:19 AM PRIMARY Type 2 diabetes mellitus without complications LAURITA TORRES [facility] Oct 23, 2023 10:19 AM SECONDARY Body mass index [BMI] 28.0-28.9, adult LAURITA TORRES [facility] Oct 23, 2023 10:19 AM SECONDARY Dietary counseling and surveillance LAURITA TORRES [facility] Oct 23, 2023 10:19 AM SECONDARY Overweight LAURITA TORRES [facility] Plan of Treatment: Future Appointments (+ 6 months) and Future Tests (+/- 45 days) The Plan of Treatment section includes future care activities for the [facility] This section includes future appointments and future orders which are active, pending or scheduled. Future Appointments This section includes appointments that were scheduled to occur 6 months from the date of the Encounter, up to a maximum of 20 appointments. The data comes from all [place] treatment facilities. Appointment Date/Time Appointment Type Appointme nt Facility Name Nov 27, 2023 09:00 AM AMBULATORY - NONE [facility] Dec 04, 2023 09:00 AM AMBULATORY - NONE [facility] Dec 04, 2023 10:45 AM AMBULATORY - NONE [facility] Dec 11, 2023 09:00 AM AMBULATORY - [...] AM AMBULATORY - NONE [facility] Mar 11, 2024 09:00 AM AMBULATORY - NONE [facility] Mar 25, 2024 09:15 AM AMBULATORY - NONE [facility] [place] [facility] Apr 01, 2024 11:00 AM AMBULATORY - MEDICINE [facility] [place] [facility] Apr 02, 2024 03:00 PM AMBULATORY - MEDICINE [facility] [place] [facility] Vital Signs: All taken on the encounter date This section contains inpatient and outpatient Vital Signs collected on the date of the Encounter. Date/Time Temperature Pulse Blood Pressure Respiratory Rate SP02 Pain Height Weight Body Mass Index Source Oct 23, 2023 10:18 AM 213 28 [place] [facility] [place] [facility] Social History: Smoking Status (Most current) and Tobacco Use (All prior to encounter date) This section includes the most current, and the historical, smoking and tobacco- related health factors from the [place] facility where the Encounter took place. Current Smoking Status This section includes the most current smoking, or tobacco-related health factor, from the [place] facility where the Encounter took place. Date/Time Current Smoking Status Comment Facil ity Aug 29, 2023 11:00 AM VA-TOBACCO FORMER USER [facility] [place] [facility] Tobacco Use History This section includes a history of the smoking, or tobacco-related health factors, that were collected on or before the date of the Encounter. The data comes from the [place] facility where the Encounter took place. Date/Time Smoking Status/Tobacco Use Comment F acility Aug 29, 2023 11:00 AM VA-TOBACCO QUIT 15 YRS OR MORE [facility] [place] [facility] Aug 28, 2022 11:00 AM VA-TOBACCO FORMER USER [facility] [place] [facility] Aug 28, 2022 11:00 AM VA-TOBACCO QUIT 15 YRS OR MORE [facility] [place] [facility] Aug 31, 2021 10:30 AM VA-TOBACCO FORMER USER [facility] [place] [facility] Aug 31, 2021 10:30 AM VA-TOBACCO QUIT 15 YRS OR MORE [facility] [place] [facility] Jun 29, 2020 01:30 PM VA-TOBACCO FORMER USER [facility] [place] [facility] Jun 29, 2020 01:30 PM VA-TOBACCO QUIT 15 YRS OR MORE [facility] [place] [facility] Mar 19, 2019 03:54 PM VA-TOBACCO FORMER USER [facility] [place] [facility] Mar 19, 2019 03:54 PM VA-TOBACCO QUIT 15 YRS OR MORE [facility] [place] [facility] Encounter Notes: All associated encounter notes This section contains the clinical notes associated to the Encounter. Date/Time Encounter Note(s) Provider Source Oct 23, 2023 08:14 AM NUTRITION DIETETICS NOTE: LOCAL TITLE: NUTRITION PROGRESS NOTE STANDARD TITLE: NUTRITION DIETETICS NOTE DATE OF NOTE: OCT 23, 2023@08:14 ENTRY DATE: OCT 23, 2023@08:15:02 AUTHOR: CULLEN TORRES COSIGNER: URGENCY: STATUS: COMPLETED [facility] Video Connect (VVC) Standard Documentation VVC Clinician Resources Only: E911 (Emergency Call Relay Center): [phone] [facility] Crisis Line - 988 then press #1. [facility] Suicide Coordinator [phone], Ext. [phone]; Back-up Ext. [phone] [place] Police, Simone BEDOLLA [phone] Introduction: Visit is being conducted by [place] [facility] Connect. identified with 2 identifiers: [X] Full Name [X] Date of [ ] VA ID Card Emergency Plan: [place] confirmed and/or provided the following information in case of emergency or technology failure. PATIENT PHONE - PHONE NUMBER [CELLULAR] - Is patient phone number correct, if not, enter below: [place]'s phone number: candice DRIVERASIA GREENE [address], [place], [address] [place]'s present location and address for appointment: [address] [place] [address], [address] 's emergency contact name and phone number: YULIANA GREENE Spouse [phone] cell [place] reported that location is private and safe: Yes Informed Consent: informed of the risks and benefits of Telehealth video care. has the right to refuse video services. If refuses video visit, a lxhd-re-qggh visit will be scheduled. [place] verbalized consent for this video visit: Yes provided consent for any other persons present for visit: Yes If yes, who and relationship to patient: Yuliana, running errands, but may show up Secure visit: Visit was locked for security and privacy:Yes Reason for Nutrition referral: Diabetes Mellitus Primary Diagnosis: Type II DM without complication (E11.9) Secondary Diagnosis: Dietary Surveillance and Counseling (Z71.3) Additional Secondary Diagnosis: Overweight (E66.3) Body mass index [BMI] 28.0-28.9, adult (ICD-10-CM Z68.28) Date of Nutrition Referral: 08/29/23 Referred to Nutrition Clinic By: Dr. Houston Date of Nutrition Visit: Oct Visit #: 2 Time Spent with Patient: 40 minutes Patient identified using the following two forms of ID: Date of , Patient Full Name NUTRITION ASSESSMENT: Anthropometric Measurements: Ht:73 in [185.4 cm] (06/29/2019 14:28) Wt:213 lb [96.62 kg] (10/23/2023 10:18) Weight History: 217 = 08/29/23 BMI: 28.2 IBW: 184 +/-10% Biochemical Data/Medical Tests: No new labs Most recent A1C: SCL1 - HEMOGLOBIN A1C TREND Collection DT Spec HGBA1c 08/26/2023 09:39 BLOOD 7.0 H Nutrition Focused Physical Findings: N/A Nutrition-Focused Physical Exam Unable to perform nutrition-focused physical assessment Nutrition-Focused Physical Exam Summary: Based on the ASPEN/AND Malnutrition Diagnosis Guide, it was determined that the [place] DOES NOT have malnutrition. Nutrition History: Food/Nutrition Related History: Progress since last visit: Reading food labels and noticing carbohydrate content. Cut back on amount of crackers & cheese he was eating. Asking about substracting fiber grams from total carbohydrate grams for Net carbs . In the past 3 months, did you ever run out of food and you were not able to access more food or have the money to buy more food? No Other Subjective Information: Received handouts, no questions on them. Accepts [...] Shown- reading labels for total Carbohydrate content, reduced intake of crackers [ ] Unresolved/No Improvement [ ] No Longer Appropriate NUTRITION INTERVENTION: NUTRITION EDUCATION provided on the following topic(s): Complex vs. Refined Carbohydrate (dietary sources and effect on glucose), Potential Benefits of Weight Loss, MOVE! program (rationale, format, content, day/time, location) OTher: Reviewed progress since last visit. Explored additional options to help with Diabetes Management. Reinforced goal of 45-60grams of carbohydrate per meal and use of nutrition facts label. Answered his question on subtracting fiber grams from total carbohydrate grams. Discussed value of choosing fiber containing Carbohydrate sources when making carbohdrate choices. Discussed benefits of wt reduction, even 5-10% wt loss. Reviewed MOVE program option which [place] accepts. Printed Nutrition educational materials provided during this encounter: My Plan to Trim the Red Light Foods , Stop Light Foods ( Green/Yellow/Red ) Sent to via secure messaging Food/Drug Interactions: Educated 09/18/23 HCTZ/Losartan - Potassium/salt substitute Barriers to Education: None Comprehension: Good Motivation: Good Goals: 1. Contine efforts to moderate carbohydrate intake by reading nutrition facts box on food labels and aiming for 3-4 carbohydrate servings per meal (45-60 grams carbohydrate) 2. Aim for fiber containing carbohydrates (whole grains) over low fiber carbohydrates 3. MOVE Program for weight management ========= NUTRITION COUNSELLING: Strategies: Motivational Interviewing, Goal Setting COORDINATION OF NUTRITION CARE: Recommend referral to: MOVE! program MOVE Consult entered per patient Follow-up with: PCP MONITORING/EVALUATION: 1. Follow-up visit: Nov 2. Monitor progress toward achievement of Nutrition Intervention Goals 3. Assess comprehension and motivation based on dietary changes made 4. Monitor progress toward achievement of Clinical Outcome Goals: Weight, Labs CLINICAL OUTCOME GOALS: Indicator: A1c Criteria: Type II DM Goal: A1c<7% by follow-up Progress: No new A1C yet, continue goal Indicator: Weight Criteria: Overweight per BMI Goal: Weight loss of 1-2/#/week toward IBW by follow-up Progress: Nearly met, wt loss of 4 lbs since 09/18/23, continue goal WHO[employer] HE[employer] COACHING SKILLS Coaching or Motivational Interviewing skills used. /del/ CULLEN TORRES RD, LDN STAFF DIETITIAN Signed: 10/25/2023 15:17 [facility]RES [facility]
--- OUTSIDE RECORDS SUMMARY | 2024-08-03 09:18 | XMS_ITS | Patient Health Record ---
Author Organization [facility] [place] Address [address] [place] [address] Care Team Providers Care Correctional Medicine Physician Name Role Phone Enrique Natarajan MD Primary Care Provider Bismark Stoll Unavailable [phone] Allergies No Known Allergies Reason For Referral No Information Medications Medication SIG (Take, Route, Frequency, Duration) Notes Start Date End Date Status Toprol XL 25 MG 1 tablet Orally Once a day for 30 day(s) Active metFORMIN HCl 500 MG 1 tablet with a pal l Orally Once a day for 30 day(s) Active Hyzaar 100-25 MG 1 tablet Orally Once a day for 30 day(s) Active Breo Ellipta 200-25 MCG/INH 1 puff Inhalation Once a day Active Extra Depth Orthopedic Shoes (1 Pair) with Customized Heat Molded Multidensity Innersoles (3 Pair) as directed Dx: NIDDM (E11.9), Hammertoe Foot Deformity (M20.41,M20.42), Preulcerative Skin Lesion(s) (L85.1) 02/12/2022 Active Immunizations Vaccine Route Administration Date Status Comme nts COVID-19 Moderna Vaccine Unknown 09/14/2021 Administered 1st 06/27/20 2nd 07/25/20 3rd 03/30/21 Social History Tobacco Use: Social History Observation Description Date Details (start date - stop date) Former Smoker NA - NA Tobacco Use/Smoking Question Answer Notes Are you a: former smoker Additional Findings: Tobacco Non-User Ex-cigaret te smoker Alcohol Screen Question Answer Notes Did you have a drink containing alcohol in the p ast year? Yes Points 0 Interpretation Negative Tobacco use other than smoking: Question Answer Notes Are you an other tobacco user? No Problems Problem Type SNOMED Code ICD Code Onset Dates Problem Status W/U Status Risk Notes Problem Acquired hammer toe of right foot (020054748147546 5) Other hammer toe(s) (acquired), right foot (M20.41) Active confirmed Problem Acquired hammer toe of left foot (055572898254190 3) Other hammer toe(s) (acquired), left foot (M20.42) Active confirmed Problem Type 2 diabetes mellitus without complication (883826332) Type 2 diabetes mellitus without complication (E11.9) Active confirmed Plan Of Treatment No Information Insurance Providers Payer Name Payer Address Payer Phone Subscriber Number Group Number Insured Name Patient Relationship to Insured Coverage Start Date Coverage End Date Medicare National [employer] [address] [place] [address] [id number] Aneudy Mckeon Self - patient is the insured [facility] [employer] [address] [place] [address] [id number] Aneudy Mckeon Self - patient is the insured Medical (General) History Medical History History ICD Code type II diabetes Hepatitis High blood pressure Measles Mumps Chicken pox covid-19 Surgical History Surgery Date(Month/Year) knee surgery 1970 hernia 1954
--- OUTSIDE RECORDS SUMMARY | 2024-08-03 09:18 | XMS_ITS ---
Author Organization [facility] Address [address] [place] [address] Care Team Providers Care Furnace And Wash Equipment Operator Name Role Phone Rosa Isela AGUILAR, Enrique Primary Care Provider Bismark Stoll Unavailable [phone] Encounters Encounter Location Date Provider Diagnosis [facility] [address] [place] [address] 02/11/2023 Bismark Kimble Plan Of Treatment No Information Progress Notes * Aneudy MCKEON RDOB: (69 yo M)Acc No.[id number]:02/11/2023 Progress Note Patient:?Aneudy MCKEON Provider:?Bismark Kimble DPM :1955???Age:67 Y???Sex:Male Jake e:02/11/2023 Address:[address] [place], [place] [id number] Pcp:Enrique Natarajan MD Subjective: * Chief Complaints: * ??? * Medical History:? Objective: * Vitals:? Assessment: Plan: * Treatment: * Images: * The named appointment provid er may or may not be the originator of this progress note, and it is not deemed complete until electronically signed by the appointment provider. Sign off status: Pending * Provider:?Bismark Kimble DPM Date:?2022 Generated for Shahriari ng/Facarlg/eTransmitting on:?08/03/2024 09:18 AM EDT
--- OUTSIDE RECORDS SUMMARY | 2024-08-03 09:18 | XMS_ITS | Encounter Summary ---
Author Name [facility] [place] Organization [facility] Address [address] [place] [address] Care Team Providers Care Exchange Architect Name Role Phone DEONNA SAIDA Primary Care [...] PART A Feb 16, 2019 PART A [id number] MUNDO GREENE PATIENT MEDICARE (WNR) MEDICARE (M) PART B Feb 16, 2019 PART B [id number] MUNDO GREENE PATIENT FOR LIFE TFL* Feb 16, 2019 [id number] MUNDO GREENE PATIENT Selected Encounter This section includes the information on record at [place] for the Encounter. Date/Time Encounter Type Encounter Description Reason Provider Source Aug 02, 2024 10:00 AM OFFICE O/P EST MOD 30 MIN OPTOMETRY ICD-10-CM H47.393 Other disorders of optic disc, bilateral MERHAR,KONSTANTIN B IHE Encounter Template Text not used by VA Assessments - Encounter Diagnoses This section includes the primary and secondary diagnoses documented for the Encounter. Date/Time Primary/Secondary Diagnosis Diagnosis Name Provider Source Aug 02, 2024 11:01 AM PRIMARY Other disorders of optic disc, bilateral MERHAR,KONSTANTIN B [facility] [place] [facility] Aug 02, 2024 11:01 AM SECONDARY Combined forms of age-related cataract, bilateral MERHAR,KONSTANTIN B [facility] [place] [facility] Aug 02, 2024 11:01 AM SECONDARY Dry eye syndrome of bilateral lacrimal glands MERHAR,KONSTANTIN B [facility] [place] [facility] Aug 02, 2024 11:01 AM SECONDARY Regular astigmatism, bilateral MERHAR,KONSTANTIN B [facility] Plan of Treatment: Future Appointments (+ 6 months) and Future Tests (+/- 45 days) The Plan of Treatment section includes future care activities for the patient from all [place] [facility]. This section includes future appointments and future orders which are active, pending or scheduled. Future Appointments This section includes appointments that were scheduled to occur 6 months from the date of the Encounter, up to a maximum of 20 appointments. The data comes from all [place] treatment facilities. Appointment Date/Time Appointment Type Appointme nt Facility Name Aug 23, 2024 11:00 AM [facility]UL[facility] - [facility] Active, Pending, and Scheduled Orders This section includes a listing of several types of active, pending, and scheduled orders, including clinic medications orders, diagnostic test orders, procedure orders and consult orders; where the start date of the order is 45 days before the date of the Encounter or 45 days after the date of theEncounter. The data comes from all [place] treatment facilities. Test Date/Time Test Type Test Details Facility Name Aug 03, 2024 08:59 AM Consult Order EYEGLASS R EQUEST - 4 SIGHT Cons Industrial Engineering Analyst's Choice [facility] Social History: Smoking Status (Most current) and Tobacco Use (All prior to encounter date) This section includes the most current, and the historical, smoking and tobacco- related health factors from the VA facility where the Encounter took place. Current Smoking Status This section includes the most current smoking, or tobacco-related health factor, from the [place] facility where the Encounter took place. Date/Time Current Smoking Status Comment Laurie dia Aug 29, 2023 11:00 AM VA-TOBACCO FORMER USER [place] [facility] [place] [facility] Tobacco Use History This section includes a history of the smoking, or tobacco-related health factors, that were collected on or before the date of the Encounter. The data comes from the [place] facility where the Encounter took place. Date/Time Smoking Status/Tobacco Use Comment F acility Aug 29, 2023 11:00 AM VA-TOBACCO QUIT 15 YRS OR MORE [facility] [place] [facility] Aug 28, 2022 11:00 AM VA-TOBACCO FORMER USER [facility] [place] [facility] Aug 28, 2022 11:00 AM VA-TOBACCO QUIT 15 YRS OR MORE [facility] [place] [facility] Aug 31, 2021 10:30 AM VA-TOBACCO FORMER USER [facility] [place] [facility] Aug 31, 2021 10:30 AM VA-TOBACCO QUIT 15 YRS OR MORE [facility] [place] [facility] Jun 29, 2020 01:30 PM VA-TOBACCO FORMER USER [facility] [place] [facility] Jun 29, 2020 01:30 PM VA-TOBACCO QUIT 15 YRS OR MORE [facility] [place] [facility] Mar 19, 2019 03:54 PM VA-TOBACCO FORMER USER [facility] [place] [facility] Mar 19, 2019 03:54 PM VA-TOBACCO QUIT 15 YRS OR MORE [facility] [place] [facility] Encounter Notes: All associated encounter notes This section contains the clinical notes associated to the Encounter. Date/Time Encounter Note(s) Provider Source Aug 02, 2024 10:04 AM OPTOMETRY NOTE: LOCAL TITLE: OPTOMETRY NOTE STANDARD TITLE: OPTOMETRY NOTE DATE OF NOTE: AUG 02, 2024@10:04 ENTRY DATE: AUG 02, 2024@10:04:27 AUTHOR: AILEEN LIRA EXP COSIGNER: KONSTANTIN MENDIOLA URGENCY: STATUS: COMPLETED OPTOMETRY NOTE Has ADDENDA Active problems - Computerized Problem List is the source for the followin. Exposure to potentially hazardous substance 2. Hearing Loss ([facility] [id number]) 3. Diabetes mellitus 4. HTN - Hypertension ([facility] [id number]) 5. Asthma ([facility] [id number]) 6. OA - Osteoarthritis ([facility] [id number]) 7. Hepatitis C Active Outpatient Medications (including Supplies): Active Non-VA Medications Status 1) Non-VA ALBUTEROL 90MCG (CFC-F) 200D ORAL INHL 2 PUFFS BY ACTIVE MOUTH FOUR TIMES DAILY NEEDED 2) Non-VA FLUTIC 200/VILANTEROL 25MCG 30D ORAL INH 1 PUFF BY ACTIVE MOUTH ONCE DAILY 3) Non-VA HCTZ 25MG/LOSARTAN 100MG TAB 1 TABLET BY MOUTH ONCE ACTIVE DAILY 4) Non-VA METFORMIN HCL 500MG TAB 500MG BY MOUTH TWICE DAILY ACTIVE 5) Non-VA METOPROLOL SUCCINATE 25MG SA TAB 25MG BY MOUTH ONCE ACTIVE DAILY 6) Non-VA TAMSULOSIN HCL 0.4MG CAP 0.4MG BY MOUTH AT BEDTIME ACTIVE Allergies: Patient has answered NKA All medications including those prescribed by outside VA's, community providers,and all OTC meds were reviewed and reconciled with patient to the best of their abilities. This 69 year old MALE is seen today for annual CEE MITA: 07/30/23 Chief Complaint: Denied any changes in vision or ocular health concerns Diabetic X 4 years Last A1C: 7.0 OHx: 1. Combined forms of cataracts OU 2. H/o iritis OU multiple episodes but hasn't occurred for several years now 3. NSC OU 4. Physiological cupping OU 5. RE and presbyopia OU Ocular Medications: None (-) Pain: (-) ARCINIEGA: (-) Diplopia: (-) Flashes: (-) Floaters: (-) Amaurosis Fugax/Tia's: (-) Eye Injury: (+) Eye Surgery: hit OS with raquette ball (-) TBI FOHx: (+) ARMD: father (-) GLC/Blindness VITALS (most recent, as listed in the electronic record): B/P: 120/70 (08/29/2023 10:59) Pulse: 79 (08/29/2023 10:59) Temperature: 97.8 F [36.6 C] (08/29/2023 10:59) Weight: 211 lb [95.71 kg] (03/25/2024 09:44) Height: 73 in [185.4 cm] (06/29/2019 14:28) BMI: BMI: 27.9 PERTINENT LABS: HEMOGLOBIN A1C TREND Collection DT Spec HGBA1c 08/26/2023 09:39 BLOOD 7.0 H (-) Smoker/Length of Time/PPD: quit 30 yrs ago Current Rx with last BCVA: OD: +1.75 sph 20/20 OS: +1.75-0.50 x075 20/20 Add:+2.25 DVA ( )sc ( x )cc - phoropter OD: 20/20 OS: 20/20 Pupils: PERRL (-)APD EOMs: SAFE OU, (-)Pain/Diplopia CVF (facial, peripheral): FTFC OU Subjective Refraction: no change OD: +1.75 sph 20/20 OS: +1.75-0.50 x075 20/20 Add:+2.25 All the above performed by student, reviewed by attending Anterior segment: Performed by student, repeated by attending Lids: trc blepharitis OU Conj: white and quiet OU Cornea: clear (-)k spindle OU AC: D&Q OU Angles: 4x4 OU Iris: flat and clear (-)NVI/TID OU Lens: 1+ NSC, trc ACC OU, epicapsular scars OU (-)PXF OU 1 clump of iris pigmented epithelium deposit on anterior lens capsule OS Tonometry: Performed by student, reviewed by attending [x ] Granados [ ] iCare OD 08 mmHg OS 08 mmHg Time:10:15 Last IOP OD: 12 OS: 12 Fundus exam: Dilated: xxxx Non dilated: Dilating Drops: 1GTT 1 % Tropicamide OU & 1GTT 2.5% Phenylephrine OU (Pt. ed. on side effects, dilation warning given and verbal consent obtained) Patient advised not to drive if they feel they have any symptoms which could affect their ability to drive safely. Patient advised not to engage in any activities which could put themselves or others at risk if they feel they have any symptoms which could affect their ability to perform those activities safely. Performed by student, repeated by attending Vit: PVD OU C/D: 0.55 OD and 0.50 OS pink & healthy rim tissue,(-)Drance heme (-)NVD OU Macula: flat and clear (-)CSME OU PPole: clear (-)NVE (-)dot/blot hemorrhage (-)exudates A/V: 2/3 Vessels: normal caliber (-)VB OU Periph: flat and intact (-)NVE, holes, tears, detachments 360 OU Assessment/Plan: 1. Type II Diabetes without evidence of retinopathy or macular edema OU. Last A1c 7.0 - Pt ed on today's findings and the possible ocular health and visual complications associated with diabetes as well as importance of attending follow up appts - Encouraged pt to monitor blood sugar and continue taking medications as prescribed by their PCP - Pt ed to call immediately if experiencing any sudden changes in vision - Monitor annually 2. Physiological cupping OU with low IOP range, no change in ONH appearance with robust rim tissues, no family history of glaucoma and no signs of pseudoexfoliation or pigment dispersion syndrome OU - IOP today: 0808mmHg - Pt ed about findings - Monitor 3. Combined Form Cataracts OU - Pt. ed. on findings - cataracts are not visually significant and that surgery is not necessary at this time - Ed. on importance of UV protection and on symptoms of glare - Continue to monitor 4. Dry eyes OU; asymptomatic with trace blepharitis OU - Pt. ed. on todays findings - Recommended pt to maintain lid hygiene at least once daily with warm facial cloths - Monitor 5. 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 Regular asitmgatism and presbyopia OU - Ordering new frames for PALs photochromatic - Monitor Return to Clinic 1yr or earlier PRN Patient Education: Diabetes: Patient was educated regarding diabetes and related ocular complications including retinopathy and cataract formation as well as other related systemic complications. The importance of good blood sugar control, blood sugar testing as recommended by their PCP and the importance of timely follow up were all emphasized. /del/ AILEEN LIRA OPTOMETRY STUDENT Signed: 08/02/2024 11:09 /del/ KONSTANTIN MENDIOLA OD Loss Prevention And Safety Manager Cosigned: 08/02/2024 12:34 08/02/2024 ADDENDUM STATUS: COMPLETED The optometry engineering intern participated in this exam, I saw this in conjunction with the optometry student. The entrance tests and refraction were performed by the student and reviewed by me. I personally met with the patient, confirmed the history, complaints and the student's findings, and performed slit lamp and fundus evaluation as indicated. I reviewed and agree with the stated findings, assessment and plan. I have added/edited the documentation to reflect my exam findings and changes to the assessment and plan. Total time: 35 minutes *This includes time spent before the visit reviewing the chart, time spent during visit (not including procedures coded separately), and time spent on documentation after the visit on the same date of service. patient offered and declined printed medication list Medication Reconciliation: Outpatient: Has the patient been taking medications as documented in the EMLR? YES: The patient has been taking medications as documented in the EMLR. Essential Medication List for Review used to complete this medication reconciliation. INCLUDED IN THIS LIST: Alphabetical list of active outpatient prescriptions dispensed from this VA (local) and dispensed from another VA or DoD facility (remote) as well as [...] whether with a VA or non-VA provider. JLV Link Data on this list may not be complete. Please check JLV. Allergies/ADRs (Tool #5) FACILITY ALLERGY/ADR -------- No Remote Allergy/ADR Data available for this patient [place] [facility] [place] [facility] No Known Allergies Med Recon NoGlossary (Tool #1) INCLUDED IN THIS LIST: Alphabetical list of active outpatient prescriptions dispensed from this VA (local) and dispensed from another VA or DoD facility (remote) as well as inpatient orders (local pending and active), local clinic medications, locally documented non-VA medications, and local prescriptions that have or been discontinued in the past 90 days. Non-VA Meds Last Documented On: Aug 29, 2023 NOTE The display of VA prescriptions dispensed from another VA or DoD facility (remote) is limited to active outpatient prescription entries matched to National Drug File at the originating site and may not include some items such as investigational drugs, compounds, etc. NOT INCLUDED IN THIS LIST: Medications self-entered by the patient into personal health records (i.e. [facility]) are NOT included in this list. Non-VA medications documented outside this [place], remote inpatient orders (regardless of status) and remote clinic medications are NOT included in this list. The patient and provider must always discuss medications the patient is taking, regardless of where the medication was dispensed or obtained. Non-VA ALBUTEROL 90MCG (CFC-F) 200D ORAL INHL INHALE 2 PUFFS BY MOUTH FOUR TIMES DAILY NEEDED Patient wants to buy from Non-[place] pharmacy. Medication prescribed by Non-VA provider. OUTPT CARBOXYMETHYLCELLULOSE NA 0.5% OPH SOLN (Status = ) INSTILL 1 DROP INTO EACH EYE FOUR TIMES DAILY NEEDED FOR DRY EYE Rx# [id number] Last Released: 08/01/23 Qty/Days Supply: Rx Expiration Date: 07/30/24 Refills Remainin Indication: FOR DRY EYE Non-VA FLUTIC 200/VILANTEROL 25MCG 30D ORAL INH INHALE 1 PUFF BY MOUTH ONCE DAILY Patient wants to buy from Non-VA pharmacy. Medication prescribed by Non-VA provider. Non-VA HCTZ 25MG/LOSARTAN 100MG TAB TAKE ONE TABLET BY MOUTH ONCE DAILY Patient wants to buy from Non-VA pharmacy. Medication prescribed by Non-VA provider. Non-VA METFORMIN HCL 500MG TAB TAKE ONE TABLET BY MOUTH TWICE DAILY Patient wants to buy from Non-VA pharmacy. Medication prescribed by Non-VA provider. Non-VA METOPROLOL SUCCINATE 25MG SA TAB TAKE ONE TABLET BY MOUTH ONCE DAILY Patient wants to buy from Non-VA pharmacy. Medication prescribed by Non-VA provider. Non-VA TAMSULOSIN HCL 0.4MG CAP TAKE 1 CAPSULE BY MOUTH AT BEDTIME Patient wants to buy from Non-VA pharmacy. Medication prescribed by Non-VA provider. SUPPLIES /del/ KONSTANTIN MENDIOLA OD Loss Prevention And Safety Manager Signed: 08/02/2024 12:35 AILEEN LIRA [facility]
--- OUTSIDE RECORDS SUMMARY | 2024-08-03 09:18 | XMS_ITS | Encounter Summary ---
Author Name Department [place] Organization [place] Address [address] [place] [id number] Care Team Providers Care Stationary Engineer Name Role Phone SAIDA YING Primary Care Provider Unavailabl e Insurance [...] PART A Feb 16, 2019 PART A [id number] MUNDO GREENE PATIENT MEDICARE (WNR) MEDICARE (M) PART B Feb 16, 2019 PART B [id number] MUNDO GREENE PATIENT FOR LIFE TFL* Feb 16, 2019 [id number] MUNDO GREENE PATIENT Selected Encounter This section includes the information on record at [place] for the Encounter. Date/Time Encounter Type Encounter Description Reason Provider Source Jan 15, 2024 09:00 AM [facility] EA ADDL WEIGHT MGMT & MOVE! PROG - GRP ICD-10-CM E66.3 Overweight FREDIS CRUZ Encounter Template Text not used by [place] Assessments - Encounter Diagnoses This section includes the primary and secondary diagnoses documented for the Encounter. Date/Time Primary/Secondary Diagnosis Diagnosis Name Provider Source Jan 15, 2024 03:46 PM PRIMARY Overweight [facility] Jan 15, 2024 03:46 PM SECONDARY Body mass index [BMI] 27.0-27.9, adult FREDIS CRUZ [facility] Plan of Treatment: Future Appointments (+ 6 months) and Future Tests (+/- 45 days) The Plan of Treatment section includes future care activities for the patient [facility] all [place] [facility] This section includes future appointments and future orders which are active, pending or scheduled. Future Appointments This section includes appointments that were scheduled to occur 6 months from the date of the Encounter, up to a maximum of 20 appointments. The data comes from all [place] treatment facilities. Appointment Date/Time Appointment Type Appointme nt Facility Name Jan 22, 2024 09:00 AM AMBULATORY - NONE [facility] Feb 05, 2024 09:00 AM AMBULATORY - NONE [facility] Feb 12, 2024 09:00 AM AMBULATORY - NONE [facility] Mar 11, 2024 09:00 AM AMBULATORY - NONE [facility] Mar 25, 2024 09:15 AM AMBULATORY - NONE [place] [facility] [place] [facility] Apr 01, 2024 11:00 AM AMBULATORY - MEDICINE [place] [facility] [place] [facility] Apr 02, 2024 03:00 PM AMBULATORY - MEDICINE [place] [facility] [place] [facility] Vital Signs: All taken on the encounter date This section contains inpatient and outpatient Vital Signs collected on the date of the Encounter. Date/Time Temperature Pulse Blood Pressure Respiratory Rate SP02 Pain Height Weight Body Mass Index Source Jan 15, 2024 09:00 AM 211 28 [facility] Encounter Notes: All associated encounter notes This section contains the clinical notes associated to the Encounter. Date/Time Encounter Note(s) Provider Source Jan 15, 2024 09:00 AM MOVE NOTE: LOCAL TITLE: WEIGHT MANAGEMENT/MOVE! OUTPATIENT GROUP NOTE STANDARD TITLE: MOVE NOTE DATE OF NOTE: JAN 15, 2024@09:00 ENTRY DATE: JAN 15, 2024@15:18:55 AUTHOR: FREDIS CRUZ EXP COSIGNER: URGENCY: STATUS: COMPLETED Veterans participated in MOVE! Group Counseling via [facility] on: 01/15/24. The Gully was provided with information on [facility] and has given verbal consent to use group [facility] services for their healthcare. The copy of the Group Telehealth Agreement has been mailed to the . The Gully's location/emergency contact number were confirmed. The Emergency Call Relay Center ([phone]) was available. The visit was locked for security and privacy. identified with 2 identifiers: [x] Full Name [x] Address Veterans attended the 60-minute MOVE! group session on this date via [facility] or by phone. MOVE! is a program designed to provide education about weight management skills to overweight and obese veterans. Veterans submitted their stated weights to staff. The group facilitators began the session by reviewing the previous weeks topic (Menu Planning, Shopping, and Cooking). Participants were asked to share their respective progress toward achieving their respective goals and to share their experiences with keeping a food and physical activity log over the past week. Positive feedback was given to the Veterans for their efforts. Session #8 (Managing Weight-Loss Challenges) was then conducted using the MOVE! [place] Workbook. Facilitators discussed common weight management challenges participants may encounter. Steps to problem solving weight management challenges were reviewed and applied to -specific situations. Finally, challenges related to weight plateaus were discussed with strategies to overcome them. The objectives accomplished at todays session were: 1. Reviewed common weight-loss challenges. 2. Outlined the steps to problem solving. 3. Discussed what a plateau is and how to manage one. Participants were asked to set one healthy eating and physical activity goal to work on this week, continue recording weight daily, to log all food and beverages consumed daily, and to also log all physical activities daily. They were instructed to continue to bring their completed Food and Physical Activity Logs to every session. The next [facility] MOVE! group meeting will be held on: 01/22/24 Individual data: Today's Weight: 211 lb Weight Gain of + .0 lb from last visit Dx: Overweight E66.3, Z68.27 /es/ FREDIS CRUZ, PHD PSYCHOLOGIST Signed: 01/15/2024 16:11 Receipt Acknowledged By: 01/26/2024 07:28 /del/ KHAI IBRAHIM, JANIA, LDN Staff Dietitian FREDIS CRUZ OC
--- OUTSIDE RECORDS SUMMARY | 2024-08-03 09:18 | XMS_ITS ---
Author Organization [facility] Address [address] [place] [address] Care Team Providers Care Telesales Team Leader Name Role Phone Rosa Isela AGUILAR, Enrique Primary Care Provider [facility] Stoll Unavailable [phone] REASON FOR VISIT cx 02/11 Encounters Encounter Location Date Provider Diagnosis [facility] [address] [place] [address] 02/06/2023 [facility] Kimble Plan Of Treatment No Information Progress Notes * Aneudy MCKEON RDOB: (67 yo M)Acc No.[id number]:02/06/2023 Patient:?Aneudy Mckeon :1955???Age:67 Y???Sex:Male Address:[address] [place] [address], [id number] * true * Date:? Generated for Printi daniel/Facarlg/eTransmitting on:?08/03/2024 09:18 AM EDT
--- OUTSIDE RECORDS SUMMARY | 2024-08-03 09:18 | XMS_ITS ---
Author Name [facility] Organization [facility] [place] [facility] [place] Address [address] [place] [id number] Care Team Providers Care Chlorination Operator Name Role Phone SAIDA YING Primary Care [...] PART A Feb 16, 2019 PART A [id number] MUNDO GREENE PATIENT MEDICARE (WNR) MEDICARE (M) PART B Feb 16, 2019 PART B [id number] MUNDO GREENE PATIENT FOR LIFE TFL* Feb 16, 2019 [id number] MUNDO GREENE PATIENT Selected Encounter This section includes the information on record at [place] for the Encounter. Date/Time Encounter Type Encounter Description Reason Provider Source Apr 01, 2024 11:00 AM OFF/OP EST SEPTEMBER X REQ PHY/QHP PODIATRY ICD-10-CM E11.9 Type 2 diabetes mellitus without complications APOLINAR BELTRAN Loy Encounter Template Text not used by [place] Assessments - Encounter Diagnoses This section includes the primary and secondary diagnoses documented for the Encounter. Date/Time Primary/Secondary Diagnosis Diagnosis Name Provider Source Apr 01, 2024 04:33 PM PRIMARY Type 2 diabetes mellitus without complications APOLINAR BELTRAN [facility] Plan of Treatment: Future Appointments (+ 6 months) and Future Tests (+/- 45 days) The Plan of Treatment section includes future care activities for the patient from all [place] treatmentfacilities. This section includes future appointments and future orders which are active, pending or scheduled. Future Appointments This section includes appointments that were scheduled to occur 6 months from the date of the Encounter, up to a maximum of 20 appointments. The data comes from all [place] treatment facilities. Appointment Date/Time Appointment Type Appointme nt Facility Name Apr 02, 2024 03:00 PM AMBULATORY - MEDICINE [facility] Aug 02, 2024 10:00 AM AMBULATORY MEDICINE [facility] Aug 23, 2024 11:00 AM AMBULATORY MEDICINE [facility] Social History: Smoking Status (Most current) and Tobacco Use (All prior to encounter date) This section includes the most current, and the historical, smoking and tobacco- related health factors from the [place] facility where the Encounter took place. Current Smoking Status This section includes the most current smoking, or tobacco-related health factor, from the [place] facility where the Encounter took place. Date/Time Current Smoking Status Comment Facil ity Aug 29, 2023 11:00 AM DC-TOBACCO FORMER USER [facility] Tobacco Use History This section includes a history of the smoking, or tobacco-related health factors, that were collected on or before the date of the Encounter. The data comes from the [place] facility where the Encounter took place. Date/Time Smoking Status/Tobacco Use Comment F acility Aug 29, 2023 11:00 AM DC-TOBACCO QUIT [facility] YRS [facility] MORE [facility] Aug 28, 2022 11:00 AM VA-TOBACCO [facility] Aug 28, 2022 11:00 AM VA-TOBACCO QUIT 15 YRS OR MORE [facility] Aug 31, 2021 10:30 AM VA-TOBACCO [facility] [place] [facility] Aug 31, 2021 10:30 AM VA-TOBACCO QUIT 15 YRS OR MORE [facility] [place] [facility] Jun 29, 2020 01:30 PM VA-TOBACCO FORMER USER [facility] [place] [facility] Jun 29, 2020 01:30 PM VA-TOBACCO QUIT 15 YRS OR MORE [facility] [place] [facility] Mar 19, 2019 03:54 PM VA-TOBACCO FORMER USER [facility] [place] [facility] Mar 19, 2019 03:54 PM VA-TOBACCO QUIT 15 YRS OR MORE [facility] [place] [facility] Encounter Notes: All associated encounter notes This section contains the clinical notes associated to the Encounter. Date/Time Encounter Note(s) Provider Source Apr 01, 2024 11:23 AM PODIATRY NOTE: LOCAL TITLE: PODIATRY NOTE STANDARD TITLE: PODIATRY NOTE DATE OF NOTE: APR 01, 2024@11:23 ENTRY DATE: APR 01, 2024@11:23:17 AUTHOR: DONNIE BELTRAN EXP COSIGNER: URGENCY: STATUS: COMPLETED Podiatry [facility] Follow up Provider: Donnie Beltran Date: APR 01, 2024 FADI GREENE [address] [place] [id number] Feb 69 MALE [id number] PATIENT PHONE - Primary Care: SAIDA YING Follow up Visit Concern: Patient returning for annual diabetic foot check has not had any problems in the past and has consistently scored low to no risk Subjective: I am having no problems I do not have paresthesias calf pain or any orthopedic discomfort.No limitations with my walking or other activities. 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% S/C LOWER LEG MUSCLE INJURY 30% S/C 2ND DEGREE BERMUDEZ 0% S/C IMPAIRED HEARING 0% S/C Medical problems active: Active Problem Exposure to potentially hazardous s 08/28/2022 SAIDA YING Hearing Loss ([facility] [id number]) H91.90, 08/31/2021 SAIDA YING Diabetes mellitus E11.9, Onset 0008/29/2023 SAIDA YING HTN - Hypertension ([facility] [id number]) I 03/30/2019 SAIDA YING Asthma ([facility] [id number]) J45.909, Ons 03/30/2019 SAIDA YING OA - Osteoarthritis ([facility] [id number]) 03/30/2019 SAIDA YING Hepatitis C R69., Onset 03/30/2019 SAIDA YING Active mediciation: Active Outpatient Medications (including Supplies): Active Outpatient [...] TAB 25MG BY MOUTH ACTIVE ONCE DAILY 6) Non-VA TAMSULOSIN HCL 0.4MG CAP 0.4MG BY MOUTH AT ACTIVE BEDTIME 7 Total Medications Allergies: Data on this list may not be complete. Please check [facility]. FACILITY ALLERGY/ADR -------- No Remote Allergy/ADR Data available for this patient [facility] [place] [facility] No Known Allergies PE: Well-nourished well-developed 69-year-old male neatly dressed [facility] Vascular exam reveals: Bilateral findings: 2+ DP and PT pulses, warm pink skin normal distribution of pedal ankle and leg hair, no edema, warm pink skin, normal brisk capillary refill bilaterally. Neurological exam reveals intact light touch pain in temperature to dermatomes L4-5 S1 bilateral, normal muscle bulk and tone equal and symmetrical bilateral, no clonus on dorsiflexion bilateral, Babinski downgoing bilateral, no fasciculations or other abnormal spontaneous motor movement identified, motor power 5 over 5 inverters everters invertors dorsi flexors plantar flexors bilateral. Orthopedic exam: Normal posterior leg ankle heel alignment, no significant inversion or eversion positional stance abnormalities in the hindfoot, normal arch formation bilateral, no forefoot positional or structural abnormalities such as varus or valgus, no hallux varus or valgus or hammertoes present. No significant tibial varum or torsion present. Equal limb length left and right. Sensate to monofilament 10 out of 10 test sites Ankle range of motion 15 degree dorsiflexion 25 degree plantarflexion bilateral subtalar joint range of motion two thirds one third inversion eversion bilateral with neutral near 0, midtarsal and metatarsophalangeal joint range of motion normal without crepitus. Dermatological exam: No abnormal pigmentation lesions no rashes or plaques present no webspace maceration no plantar lesions or calluses present no excrescences on the toes toenails normal. Impression: -No risk for amputation -Normal lower extremity exam Plan: -Discharged from follow-up in podiatry -Annual PAVE check at primary care -Reconsult if risk elevates or any other foot or ankle pathology needing attention /del/ DONNIE BELTRAN DPM PODIATRY ATTENDING Signed: 04/01/2024 16:33 DONNIE BELTRAN [facility] [place] [facility]
--- OUTSIDE RECORDS SUMMARY | 2024-08-03 09:18 | XMS_ITS | Encounter Summary ---
Author Name [facility] ([place]) Organization [facility] of Veter[facility] ([place]) Address [address] [place] [id number] Care Team Providers Care Local Company Hazmat Driver Name Role Phone SAIDA YING Primary Care [...] Policy Henry's Name Patient's Relationship to Policy Ehnry MEDICARE (WNR) MEDICARE (M) PART A Feb 16, 2019 PART A [id number] MUNDO GREENE PATIENT MEDICARE (WNR) MEDICARE (M) PART B Feb 16, 2019 PART B [id number] MUNDO GREENE PATIENT FOR LIFE TFL* Feb 16, 2019 [id number] MUNDO GREENE PATIENT Selected Encounter This section includes the information on record at [place] for the Encounter. Date/Time Encounter Type Encounter Description Reason Provider Source Aug 02, 2024 11:40 AM FIT SPECTACLES MULTIFOCAL OPTOMETRY ICD-10-CM Z46.0 Encounter for fit/adjst of spectacles and contact lenses KONSTANTIN MENDIOLA IHLoy Encounter Template Text not used by [facility] Assessments - Encounter Diagnoses This section includes the primary and secondary diagnoses documented for the Encounter. Date/Time Primary/Secondary Diagnosis Diagnosis Name Provider Source Aug 02, 2024 11:40 AM PRIMARY Encounter for fit/adjst of spectacles and contact lenses CARLOS ARMENDARIZ [facility] Plan of Treatment: Future Appointments (+ 6 months) and Future Tests (+/- 45 days) The Plan of Treatment section includes future care activities for the patient from all [place] [facility]. This section includes future appointments and future orders which are active, pending or scheduled. Future Appointments This section includes appointments that were scheduled to occur 6 months from the date of the Encounter, up to a maximum of 20 appointments. The data comes from all [place] treatment facilities. Appointment Date/Time Appointment Type Appointme nt Facility Name Aug 23, 2024 11:00 AM AMBULATORY - MEDICINE [facility] Active, Pending, and Scheduled Orders This section includes a listing of several types of active, pending, and scheduled orders, including clinic medications orders, diagnostic test orders, procedure orders and consult orders; where the start date of the order is 45 days before the date of the Encounter or 45 days after the date of theEncounter. The data comes from all [place] treatment facilities. Test Date/Time Test Type Test Details Facility Name Aug 03, 2024 08:59 AM Consult Order EYEGLASS R EQUEST - 4 SIGHT Cons Automotive Diagnostic Technician's Choice [facility] Social History: Smoking Status (Most current) and Tobacco Use (All prior to encounter date) This section includes the most current, and the historical, smoking and tobacco- related health factors from the [place] facility where the Encounter took place. Current Smoking Status This section includes the most current smoking, or tobacco-related health factor, from the [place] facility where the Encounter took place. Date/Time Current Smoking Status Comment Facil ity Aug 29, 2023 11:00 AM MD-TOBACCO FORMER USER [facility] Tobacco Use History This section includes a history of the smoking, or tobacco-related health factors, that were collected on or before the date of the Encounter. The data comes from the [place] facility where the Encounter took place. Date/Time Smoking Status/Tobacco Use Comment F acility Aug 29, 2023 11:00 AM MD-TOBACCO QUIT 15 YRS OR MORE [facility] [place] [facility] Aug 28, 2022 11:00 AM VA-TOBACCO FORMER USER [facility] [place] [facility] Aug 28, 2022 11:00 AM VA-TOBACCO QUIT 15 YRS OR MORE [facility] [place] [facility] Aug 31, 2021 10:30 AM VA-TOBACCO FORMER USER [facility] [place] [facility] Aug 31, 2021 10:30 AM VA-TOBACCO QUIT 15 YRS OR MORE [facility] [place] [facility] Jun 29, 2020 01:30 PM VA-TOBACCO FORMER USER [facility] [place] [facility] Jun 29, 2020 01:30 PM VA-TOBACCO QUIT 15 YRS OR MORE [facility] [place] [facility] Mar 19, 2019 03:54 PM VA-TOBACCO FORMER USER [facility] [place] [facility] Mar 19, 2019 03:54 PM VA-TOBACCO QUIT 15 YRS OR MORE [facility] [place] [facility] Encounter Notes: All associated encounter notes This section contains the clinical notes associated to the Encounter. Date/Time Encounter Note(s) Provider Source Aug 02, 2024 11:40 AM OPTOMETRY NOTE: LOCAL TITLE: OPTOMETRY NOTE STANDARD TITLE: OPTOMETRY NOTE DATE OF NOTE: AUG 02, 2024@11:40 ENTRY DATE: AUG 02, 2024@11:40:11 AUTHOR: DONNA TAVERAS EXP COSIGNER: URGENCY: STATUS: COMPLETED OPTOMETRY NOTE Has ADDENDA The quote provided below is for informational purposes only. Please verify prior to the creation of a purchase order. FADI Mario GREENE [id number] RX INFORMATION OD +1.75 0.00 X Add:+2.25 Pzm:0.00 Dir: Prz2:0.00 Dir2: OS +1.75 -0.50 X75 Add:+2.25 Pzm:0.00 Dir: Prz2:0.00 Dir2: FITTING INFORMATION FPD: NPD: Z[place]ala:R:33.5 L:31.0 SEG HT:R:23 L:23 Tint:None Shade:None VA Billable Items FRAME: [id number] BLACK [id number] Right Lens: POLY VA PROGRESSIVE PHOTOCHROMIC KOVACS 1.586 POLY Left Lens: POLY VA PROGRESSIVE PHOTOCHROMIC KOVACS 1.586 POLY KLEAR ANTI-REFLECTIVE COATING CLIN items [employer] - AR Coating 0004 - Progressive - Glass Plastic Poly 0005 - Transition /del/ DONNA TAVERAS MANAGEMENT CONSULTING Signed: 08/02/2024 11:40 Receipt Acknowledged By: 08/03/2024 08:56 /dalton ARMENDARIZ OPTOMETRY TECH 08/03/2024 ADDENDUM STATUS: COMPLETED PDS Mgmt Consultant fit patient with 1 pair(s) of PAL eyeglasses on 08/02/2024 as directed by provider. Optometry Health Inspector entered consult(s) for order on behalf of provider. /del/ CARLOS ARMENDARIZ OPTOMETRY TECH Signed: 08/03/2024 08:58 DONNA TAVERAS [facility]
--- OUTSIDE RECORDS SUMMARY | 2024-08-03 09:18 | XMS_ITS ---
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 Date/Time Encounter Type Encounter Description Reason Provider Source September 18, 2023 10:00 AM QNHP OL DIG ASSMT&MGMT 5-10 NUTRITION/DIETETI CS-INDIVIDUAL ICD-10-CM E11.9 Type 2 diabetes mellitus without complications LAURITA TORRES [facility] Encounter Template Text not used by [facility] Assessments - Encounter Diagnoses This section includes the primary and secondary diagnoses documented for the Encounter. Date/Time Primary/Secondary Diagnosis Diagnosis Name Provider Source September 18, 2023 11:53 AM PRIMARY Type 2 diabetes mellitus without complications LAURITA TORRES [facility] September 18, 2023 11:53 AM SECONDARY Body mass index [BMI] 28.0-28.9, adult LAURITA TORRES [facility] September 18, 2023 11:53 AM SECONDARY Dietary counseling and surveillance LAURITA TORRES [facility] September 18, 2023 11:53 AM SECONDARY Overweight LAURITA TORRES [facility] Plan of Treatment: Future Appointments (+ 6 months) and Future Tests (+/- 45 days) The Plan of Treatment section includes [facility] care activities [facility] the [facility] This section includes future appointments and future orders which are active, pending or scheduled. Future Appointments This section includes appointments that were scheduled to occur 6 months from the date of the Encounter, up to a maximum of 20 appointments. The data comes from all [place] treatment facilities. Appointment Date/Time Appointment Type Appointme nt Facility Name Oct 23, 2023 09:15 AM AMBULATORY - NONE [facility] Nov 27, 2023 09:00 AM AMBULATORY - NONE [facility] Dec 04, 2023 09:00 AM AMBULATORY - NONE [facility] Dec 04, 2023 10:45 AM AMBULATORY - NONE [facility] Dec 11, 2023 09:00 AM AMBULATORY [...] and Hematology Lab Results on record with [place] for the patient. Radiology Reports and Pathology Reports are provided separately, in subsequent sections. Lab Results This section contains the Chemistry/Hematology Results that were resulted 30 days before or 30 daysafter the date of the Encounter. Date/Time Source Result Type Result - Unit Interpretation Reference Range Comment Aug 26, 2023 09:39 AM [facility] BASIC METABOLIC PANEL (fasting) Specimen Type: SERUM No comment entered. Ordering Provider: SAIDA HOUSTON Report Released Date/Time: Aug 15, 2023 12:34 PM Reporting Lab: [address] [address] Performing Lab: [address] [address] UREA NITROGEN 16 mg/dL 7-25 GLUCOSE 169 mg/dL H 65-100 SODIUM 139 mmol/L 135-145 POTASSIUM 3.9 mmol/L 3.5-5.0 CHLORIDE 100 mmol/L 100-110 CO2 28 meq/L 20-30 CREATININE, Serum 0.82 mg/dL 0.50-1.40 eGFR(CKD-EPI 2020) >90 mL/min >60 Aug 26, 2023 09:39 AM [facility] CBC AND DIFF (AUTO) Specimen Type: BLOOD No comment entered. Ordering Provider: SAIDA HOUSTON Report Released Date/Time: Aug 15, 2023 12:34 PM Reporting Lab: [facility] [address] [facility] [address] Performing Lab: [address] [address] WBC 6.47 10*3/uL 4.50-11.00 RBC 4.59 10*6/uL 4.23-5.66 HGB 14.3 g/dL 12.8-17 HCT 42.7 39.2-50.4 MCV 93.0 fL 82-99 MCHC 33.5 g/dL 30.8-35.1 PLT 230 10*3/uL 140-360 RDW-CV 12.8 12.0-16.0 Duval, Abs 0.56 10*3/uL 0.30-1.10 MCH 31.2 pg 26.2-32.6 Neut % 72.1 43.7-75.8 Lymph % 16.8 14.0-42.3 Duval % 8.7 5.1-13.7 Eos % 1.4 0.4-6.8 Baso % 0.5 0.1-2.0 Neut, Abs 4.67 10*3/uL 2.20-7.60 Lymph, Abs 1.09 10*3/uL 1.00-3.20 Eos, Abs 0.09 10*3/uL 0.03-0.44 Baso, Abs 0.03 10*3/uL 0.01-0.13 Immature Gran % 0.5 0.0-0.7 Immature Gran, Abs 0.03 10*3/uL 0.00-0.06 Aug 26, 2023 09:39 AM [facility] LIVER FUNCTION Specimen Type: SERUM No comment entered. Ordering Provider: SAIDA HOUSTON Report Released Date/Time: Aug 15, 2023 12:34 PM Reporting Lab: [address] [address] Performing Lab: [address] [address] PROTEIN,TOTAL 6.5 g/dL 6.0-8.3 ALBUMIN 4.0 g/dL 3.5-5.0 ALKALINE PHOSPHATASE 54 U/L 40-150 AST 14 U/L 5-34 ALT 14 U/L BILIRUBIN, TOTAL 0.7 mg/dL 0.2-1.2 Aug 26, 2023 09:39 AM [facility] LIPID PANEL FASTING Specimen Type: SERUM No comment entered. Ordering Provider: SAIDA HOUSTON Report Released Date/Time: Aug 15, 2023 12:34 PM Reporting Lab: [address] [address] Performing Lab: [facility] [address] [facility] [address] CHOLESTEROL 221 mg/dL H TRIGLYCERIDE 95 mg/dL 0-150 LDL calculated 138 mg/dL H 0-129 CHOL/HDL 3.5 HDL CHOLESTEROL 64 mg/dL H 40-60 Aug 26, 2023 09:39 AM [facility] TSH Specimen Type: SERUM No comment entered. Ordering Provider: SAIDA HOUSTON Report Released Date/Time: Aug 15, 2023 12:34 PM Reporting Lab: [facility] [address] [facility] [address] Performing Lab: [facility] [address] [facility] [address] TSH 1.24 u[IU]/mL 0.35-5.00 Aug 26, 2023 09:39 AM [facility] PSA Specimen Type: SERUM No comment entered. Ordering Provider: SAIDA HOUSTON Report Released Date/Time: Aug 15, 2023 12:34 PM Reporting Lab: [facility] [address] [facility] [address] Performing Lab: [facility] [address] [facility] [address] PSA 4.03 ng/mL H 0.00-4.00 Aug 26, 2023 09:39 AM [facility] HEMOGLOBIN A1C PANEL Specimen Type: BLOOD Comment: Values obtained from A1C measurements can vary. For atypical A1C assays, a reported value of 7.0 could actually be between 6.72 and 7.28 if measured by a reference method. A reported value of 9.0 could actually be between 8.73 and 9.27. Ref: http://www.ngs p.org/CAPdata. asp Ordering Provider: SAIDA HOUSTON Report Released Date/Time: Aug 15, 2023 12:34 PM Reporting Lab: [facility] [address] [facility] [address] Performing Lab: [address] [address] HEMOGLOBIN A1C 7.0 H 4.0-5.6 Aug 26, 2023 09:39 AM [facility] HEPATITIS C ANTIBODY (HCV)-ARC Specimen Type: SERUM Comment: Hep C Ab : Anti-HCV Reactive; HCV viral load testing will be performed and reported separately. If clinical suspicion is low and a false-positive reaction is suspected, consider repeat testing. Ordering Provider: SAIDA HOUSTON Report Released Date/Time: Aug 15, 2023 12:34 PM Reporting Lab: [facility] [address] [facility] [address] Performing Lab: [address] [address] HEPATITIS C ANTIBODY REACTIVE HH NON-REACTI VE Aug 26, 2023 09:39 AM [facility] URINALYSIS CLEAN CATCH Specimen Type: URINE Comment: If Glucose = >500 and Ketones are positive, please alert the Physician. Ordering Provider: SAIDA HOUSTON Report Released Date/Time: Aug 15, 2023 12:34 PM Reporting Lab: [facility] [address] [facility] [address] Performing Lab: [facility] [address] [facility] [address] UA COLOR Light-Yellow Yellow UA APPEARANCE Clear Clear UA GLUCOSE NEGATIVE mg/dL Negative UA KETONES NEGATIVE mg/dL Negative UA BLOOD NEGATIVE mg/dL Negative UA PROTEIN NEGATIVE mg/dL Negative UA NITRITE NEGATIVE mg/dL Negative UA BILIRUBIN NEGATIVE mg/dL Negative UA SPECIFIC GRAVITY 1.022 1.016-1.02 2 UA pH 7.0 5.0-9.0 UA UROBILINOGEN <2.0 mg/dL <2.0 UA LEUKOCYTE NEGATIVE Negative Aug 26, 2023 09:39 AM [facility] MICROALBUMIN CREATININE RATIO PANEL Specimen Type: URINE No comment entered. Ordering Provider: SAIDA HOUSTON Report Released Date/Time: Aug 15, 2023 12:36 PM Reporting Lab: [facility] [address] [facility] [address] Performing Lab: [address] [address] MICROALBUMIN/C REATININE RATIO 4.4 mg/g 0-29.9 MICROALBUMIN,Q UANTITATIVE 0.5 mg/dL RR UNAVAIL CREATININE URINE 112.80 mg/dL Aug 26, 2023 09:39 AM [facility] HCV RNA PCR PANEL([facility]) Specimen Type: SERUM Comment: Assay performed using the Conductornity m HCV nucleic acid amplification test for the [...] assay performance information is needed. Ordering Provider: SAIDA HOUSTON Report Released Date/Time: Aug 26, 2023 12:23 PM Reporting Lab: [facility] [address] [facility] [address] Performing Lab: [address] [address] HCV-RNA,DETECT ION Not Detected Not Detected Social History: Smoking Status (Most current) and Tobacco Use (All prior to encounter date) This section includes the most current, and the historical, smoking and tobacco- related health factors from the [place] facility where the Encounter took place. Current Smoking Status This section includes the most current smoking, or tobacco-related health factor, from the [place] facility where the Encounter took place. Date/Time Current Smoking Status Comment Laurie ity Aug 29, 2023 11:00 AM [place]-TOBACCO FORMER USER [facility] Tobacco Use History This section includes a history of the smoking, or tobacco-related health factors, that were collected on or before the date of the Encounter. The data comes from the [place] facility where the Encounter took place. Date/Time Smoking Status/Tobacco Use Comment F acility Aug 29, 2023 11:00 AM [place]-TOBACCO QUIT 15 YRS OR MORE [facility] Aug 28, 2022 11:00 AM [place]-TOBACCO FORMER USER [facility] Aug 28, 2022 11:00 AM [place]-TOBACCO QUIT 15 YRS OR MORE [facility] Aug 31, 2021 10:30 AM VA-TOBACCO FORMER USER [facility] [place] [facility] Aug 31, 2021 10:30 AM VA-TOBACCO QUIT 15 YRS OR MORE [facility] [place] [facility] Jun 29, 2020 01:30 PM VA-TOBACCO FORMER USER [facility] [place] [facility] Jun 29, 2020 01:30 PM VA-TOBACCO QUIT 15 YRS OR MORE [facility] [place] [facility] Mar 19, 2019 03:54 PM VA-TOBACCO FORMER USER [facility] [place] [facility] Mar 19, 2019 03:54 PM VA-TOBACCO QUIT 15 YRS OR MORE [facility] [place] [facility] Encounter Notes: All associated encounter notes This section contains the clinical notes associated to the Encounter. 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 [facility] Suicide Coordinator [phone], Ext. [phone]; Back-up Ext. [phone] [place] Police, Simone BEDOLLA [phone] Introduction: Visit is being conducted by [place] [employer] [facility]. identified with 2 identifiers: [X] Full Name [X] Date of [ ] VA ID Card Emergency Plan: [place] confirmed and/or provided the following information in case of emergency or technology failure. PATIENT PHONE - PHONE NUMBER [CELLULAR] - Is patient phone number correct, if not, enter below: [place]'s phone number: candice GREENE [address], [place], [address] 's present location and address for appointment: [address] [place] [address], [address] [place]'s emergency contact name and phone number: ANGELES GREENE Spouse reported that location is private and safe: Yes Informed Consent: informed of the risks and benefits of Telehealth video care. has the right to refuse video services. If refuses video visit, a [id number]-[id number] visit will be scheduled. [place] verbalized consent for this video visit: Yes provided consent for any other persons present for visit: Yes If yes, who and relationship to patient: martell Bridges Secure visit: Visit was locked for security and privacy:Yes Reason for Nutrition referral: Diabetes Mellitus Primary Diagnosis: Type II DM without complication (E11.9) Secondary Diagnosis: Dietary Surveillance and Counseling (Z71.3) Additional Secondary Diagnosis: Overweight (E66.3) Body mass index [BMI] 28.0-28.9, adult (ICD-10-CM Z68.28) Date of Nutrition Referral: 08/29/23 Referred to Nutrition Clinic By: Dr. Houston Date of Nutrition Visit: September Visit #: 1 Time Spent with Patient: 65 minutes Patient identified using the following two forms of ID: Date of , Patient Full Name NUTRITION ASSESSMENT: Client History: Medication List Reviewed Nutritional/Herbal Supplements: no Food Allergies:no Problem List Reviewed Anthropometric Measurements: Ht:73 in [185.4 cm] (06/29/2019 14:28) Wt:217 lb [98.43 kg] (08/29/2023 10:59) Weight History: 219 = 08/28/22 BMI: 28.7 IBW:184 +/-10% Biochemical Data/Medical Tests: Labs: HEMOGLOBIN A1C; BLOOD Fredy. Date: 08/26/23 09:39 Test Name Result Units Range HEMOGLOBIN A1C 7.0 H % 4.0 - 5.6 Nutrition Focused Physical Findings: Appetite: Good Other issues/concerns: None Nutrition-Focused Physical Exam Unable to perform nutrition-focused physical assessment Nutrition-Focused Physical Exam Summary: Based on the ASPEN/AND Malnutrition Diagnosis Guide, it was determined that the [place] DOES NOT have malnutrition. Nutrition History: Food/Nutrition Related History: Breakfast: 2-4 coffee with half & half Protein shake: plant based protein powder- 18g CHO (asked him to check label) he adds this to soymilk-9g CHO per 1c (checked label) and adds seasonal fruit to make a shake snack: saltine crackers -anywhere from 4 -1/2 sleeve peanut butter or cheese Lunch: Homemade soup makes e.g. vegetables with ground turkey 1/2 sleeve crackers with peanut butter sparkling water snack: kinds bar or protein cookie (17g CHO when he checked label) or up to 1/2 sleeve crackers Supper: hamburger or chicken roasted vegetables, large salad includes olives and garlic bread croutons water, sometimes wine H.S. snack: none In the past 3 months, did you ever run out of food and you were not able to access more food or have the money to buy more food? No Physical Activity: walking, bike, yoga, gym Other Subjective Information: Has noticed A1c has been increasing. NUTRITION DIAGNOSIS: Inconsistent Carbohydrate Intake related to Physiological causes requiring careful timing and consistency in the amount of carbohydrates(e.g.,diabe loida mellitus, hypoglycemia)as evidenced by estimated carbohydrate intake that is different from recommended types or ingested on an irregular basis. NUTRITION INTERVENTION: NUTRITION EDUCATION provided on the following topic(s): Dietary Fiber (sources and potential benefits), Sources of Carbohydrates, Complex vs. Refined Carbohydrate (dietary sources and effect on glucose), Healthy Meal Planning, Potential Benefits of Weight Loss, Food/Drug interactions reviewed Other: Explored options to help with BG management. Discussed value of moderate and consistent CHO intake throughout the day. Introduced CHO sources/servings using Diabetes Meal Planning plate shared to screen. Discussed working towards choosing 3-4 CHO servings (45-60g CHO) each meal and limiting to 1 CHO serving (15g CHO) per snack. Discussed role of fiber in BG management and value of choosing fiber containing CHO sources and examples. Discussed role of protein in BG management. Discussed how to read nutrition facts box on food labels for total CHO content of packaged items. Used labels from items he had on hand. Discussed how wt reduction can help with BG control. Discussed how physical activity helps with insulin resistance. Printed Nutrition educational materials provided during this encounter: Diabetes Meal Planning: Plan Your Plate , Eating Healthy with Diabetes Healthy snack ideas handout Handouts sent over secure messaging to patient. Food/Drug Interactions: HCTZ/Losartan - Potassium/salt substitute Barriers to Education: None Comprehension: Good Motivation: Good Goals: 1. Practice choosing 3-4 CHO servings (45-60g CHO)each meal, refer to Diabetes Meal Plate handout information or nutrition facts box for packaged items 2. Choose fiber containing CHO sources when possible 3. Include modest protein portion at meals 4. Review handouts sent over secure messaging NUTRITION COUNSELING: Strategies: Motivational Interviewing, Goal Setting COORDINATION OF NUTRITION CARE: Follow-up with: PCP MONITORING/EVALUATION: 1. Follow-up visit: Oct 2. Monitor progress toward achievement of Nutrition Intervention Goals 3. Assess comprehension and motivation based on dietary changes made 4. Monitor progress toward achievement of Clinical Outcome Goals: Weight, Labs 5. DiIscuss wt management further at next visit. CLINICAL OUTCOME GOALS: Indicator: A1c Criteria: Type II DM Goal: A1c<7% by follow-up Progress: TBD at follow-up Indicator: Weight Criteria: Overweight per BMI Goal: Weight loss of 1-2/#/week toward IBW by follow-up Progress: TBD at follow-up WHOLE HEALTH COACHING SKILLS Coaching or Motivational Interviewing skills used. SHORT-TERM GOALS Short-term S.M.A.R.T. Goal (e.g.,next few weeks): New Goal-see progress note /del/ CULLEN TORRES RD,MAHSAN STAFF DIETITIAN Signed: 09/19/2023 13:40 [facility]
--- OUTSIDE RECORDS SUMMARY | 2024-08-03 09:18 | XMS_ITS | Continuity of Care Document ---
Author Name [facility] Organization [facility] Care Team Providers Care [place] Pumper Name Role Phone [facility] Unavailable Unavailable Problems Combined list of problems from Department of Defense and Veterans Affairs facilities. It does not include entries that were removed or entered in error. Problem Status Onset Date Problem Type Date of Resolution Comments Source Diabetes mellitus Active 05/19/19 Condition Aug 31, 2021 Entered By: SAIDA YING Comment: treated with education [facility] Hearing Loss ([facility] [id number]) Active 05/19/19 Condition Aug 31, 2021 Entered By: SAIDA YING Comment: no treatment needed [facility] Asthma ([facility] [id number]) Active 05/19/19 Condition Mar 30, 2019 Entered By: SAIDA YING Comment: controlled with medication [facility] Hepatitis C Active 05/19/19 Condition Mar 30, 2019 Entered By: SAIDA YING Comment: eradicated with treatment [facility] HTN - Hypertension ([facility] [id number]) Active 05/19/19 Condition Mar 30, 2019 Entered By: SAIDA YING Comment: controlled with medication [facility] OA - Osteoarthritis ([facility] [id number]) Active 05/19/19 Condition Mar 30, 2019 Entered By: SAIDA YING Comment: left hip [facility] Exposure to potentially hazardous substance Active Condition Aug 28, 2022 Entered By: SAIDA YING Comment: Education provided [facility] Diagnosis: ICD-10-CM Z46.0 Encounter for fit/adjst of spectacles and contact lenses Active Diagnosis [facility] Diagnosis: ICD-10-CM 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 Medication Details Route Status Patient Instructions Prescription Expires Prescription Number Last Dispense Date Ordering Provider Order Date Order Qty Source ALBUTEROL 90MCG/ACTUA T (CFC-F) INHL,ORAL,8 .5GM DOSE COUNTER INHALE 2 PUFFS BY MOUTH FOUR TIMES DAILY NEEDED RESPIR ATORY (INHAL ATION) ACTIVE DEONNA,HOW SHIRA D 2018 [facility] CARBOXYMETH YLCELLULOSE NA 0.5% SOLN,OPH INSTILL 1 DROP INTO EACH EYE FOUR TIMES DAILY NEEDED FOR DRY EYE OPHTHA LMIC 07/30/2024 [id number] 4 MERHAR,NO AH B 20[facility] FLUTICASONE 200MCG/HELEN NTEROL 25MCG INHL,ORAL,3 0D INHALE 1 PUFF BY MOUTH ONCE DAILY RESPIR ATORY (INHAL ATION) ACTIVE DEONNA,HOW SHIRA D 2018 [facility] HYDROCHLORO THIAZIDE 25MG/LOSART AN POTASSIUM 100MG TAB TAKE ONE TABLET BY MOUTH ONCE DAILY ORAL ACTIVE DEONNA,HOW SHIRA D 2018 [facility] METFORMIN HCL 500MG TAB TAKE ONE TABLET BY MOUTH TWICE DAILY ORAL ACTIVE DEONNA,HOW SHIRA D 2022 [facility] METOPROLOL SUCCINATE 25MG TAB,SA TAKE ONE TABLET BY MOUTH ONCE DAILY ORAL ACTIVE DEONNA,HOW SHIRA D 2018 [facility] TAMSULOSIN HCL 0.4MG CAP TAKE 1 CAPSULE BY MOUTH AT BEDTIME ORAL ACTIVE DENONA,HOW SHIRA D 2023 [facility] [place] [facility] [facility] Immunizations Combined list of available immunizations from the Department of Defense and Veterans Affairs facilities. Immunization Series Date Given Administered By Site Reaction Lot Number CVX Code Drug Store Loss Prevention Manager Status Comments Source RSV, BIVALENT, PROTEIN SUBUNIT RSVPREF, DILUENT RECONSTITUTED , 0.5 ML, PF 1 2023 IZAGUIRREALESHA WHITNEYCARLI E LEFT DELTO ID [id number] 305 complet ed [facility] COVID-19 (MODERNA), MRNA, LNP-S, PF, 50 MCG/0.5 ML (AGES 12+ YEARS) 1 2023 DMITRIYALESHACARLI E LEFT DELTO ID [id number] 312 complet ed [facility] INFLUENZA, UNSPECIFIED FORMULATION 2022 88 complet ed [facility] PNEUMOCOCCAL CONJUGATE PCV20, POLYSACCHARID E [id number] CONJUGATE, ADJUVANT, PF 2022 CRESENCIO KHAN M LEFT DELTO ID [id number] 216 complet ed [facility] [place] [facility] [facility] COVID-19 (MODERNA), MRNA, LNP-S, BIVALENT BOOSTER, PF, 50 MCG/0.5 ML OR 25MCG/0.25 ML DOSE 2021 229 complet ed [facility] COVID-19 (MODERNA), MRNA, LNP-S, PF, 100 MCG/0.5ML DOSE OR 50 MCG/0.25ML DOSE 3 2021 207 complet ed MOD; [id number]; 2 [facility] COVID-19 (MODERNA), MRNA, LNP-S, PF, 100 MCG/0.5ML DOSE OR 50 MCG/0.25ML DOSE 3 2020 207 complet ed [facility] ZOSTER RECOMBINANT 2 2020 187 complet ed [facility] INFLUENZA, UNSPECIFIED FORMULATION 2020 88 complet ed [facility] [place] [facility] PNEUMOCOCCAL POLYSACCHARID E [id number] 2020 33 complet ed [facility] TDAP 2020 115 complet ed [facility] ZOSTER RECOMBINANT 1 2020 187 complet ed [facility] COVID-19 (MODERNA), MRNA, LNP-S, PF, 100 MCG/0.5 ML DOSE 2 2020 207 complet ed MOD; [id number]; 1 [facility] COVID-19 (MODERNA), MRNA, LNP-S, PF, 100 MCG/0.5 ML DOSE 1 2020 207 complet ed MOD; [id number]; 1 [facility] INFLUENZA, UNSPECIFIED FORMULATION 2019 88 complet ed [facility] INFLUENZA, SEASONAL, INJECTABLE 2018 141 complet ed [facility] Results Combined list of recent chemistry, hematology and other laboratory results from Department of Defense and Veterans Affairs, ranging from 15 months to all on record, depending upon the facility. Order Name Results Value Reference Range Date Interpretation Specimen Comments Source BASIC METABOLI C PANEL (fasting ) UREA NITROGEN [MASS/VOLU ME] IN SERUM OR PLASMA 16 mg/dL 7 - 25 08/25 Specimen Type: SERUM No comment entered. Ordering Provider: ANAIS YING Report Released Date/Time: Aug 15, 2023 12:34 PM Reporting Lab: [facility] [place] [facility] [address] [facility] [address] Performing Lab: [facility] [place] [facility] [address] [facility] [address] [facility] [place] [facility] BASIC METABOLI C PANEL (fasting ) GLUCOSE [MASS/VOLU ME] IN SERUM OR PLASMA 169 mg/dL 65 - 100 08/25 H Specimen Type: SERUM No comment entered. Ordering Provider: ANAIS YING Report Released Date/Time: Aug 15, 2023 12:34 PM Reporting Lab: [facility] [place] [address] [address] Performing Lab: [facility] [place] [facility] [address] [address] [facility] [place] [facility] BASIC METABOLI C PANEL (fasting ) SODIUM [MOLES/VOL UME] IN SERUM OR PLASMA 139 mmol/L 135 - 145 08/25 Specimen Type: SERUM No comment entered. Ordering Provider: ANAIS YING Report Released Date/Time: Aug 15, 2023 12:34 PM Reporting Lab: [facility] [place] [facility] [address] [address] Performing Lab: [facility] [place] [facility] [address] [address] [facility] [place] [facility] BASIC METABOLI C PANEL (fasting ) POTASSIUM [MOLES/VOL UME] IN SERUM OR PLASMA 3.9 mmol/L 3.5 - 5.0 08/25 Specimen Type: SERUM No comment entered. Ordering Provider: ANAIS YING Report Released Date/Time: Aug 15, 2023 12:34 PM Reporting Lab: [facility] [place] [facility] [address] [address] Performing Lab: [facility] [place] [address] [address] [facility] [place] [facility] BASIC METABOLI C PANEL (fasting ) CHLORIDE [MOLES/VOL UME] IN SERUM OR PLASMA 100 mmol/L 100 - 110 08/25 Specimen Type: SERUM No comment entered. Ordering Provider: ANAIS YING Report Released Date/Time: Aug 15, 2023 12:34 PM Reporting Lab: [facility] [place] [facility] [address] [address] Performing Lab: [facility] [place] [address] [address] [facility] [place] [facility] BASIC METABOLI C PANEL (fasting ) CARBON DIOXIDE, TOTAL [MOLES/VOL UME] IN SERUM OR PLASMA 28 meq/L 20 - 30 08/25 Specimen Type: SERUM No comment entered. Ordering Provider: ANAIS YING Report Released Date/Time: Aug 15, 2023 12:34 PM Reporting Lab: [facility] [place] [facility] [address] [address] Performing Lab: [facility] [place] [facility] [address] [address] [facility] [place] [facility] BASIC METABOLI C PANEL (fasting ) CREATININE [MASS/VOLU ME] IN SERUM OR PLASMA 0.82 mg/dL 0.50 - 1.40 08/25 Specimen Type: SERUM No comment entered. Ordering Provider: ANAIS YING Report Released Date/Time: Aug 15, 2023 12:34 PM Reporting Lab: [facility] [place] [facility] [address] [facility] [address] Performing Lab: [facility] [place] [facility] [address] [address] [facility] [place] [facility] BASIC METABOLI C PANEL (fasting ) GLOMERULAR FILTRATION RATE/1.73 SQ M.PREDICTE D [VOLUME RATE/AREA] IN SERUM, PLASMA OR BLOOD BY CREATININE -BASED FORMULA (CKD-EPI 2020) >90mL/mi n 60 08/25 Specimen Type: SERUM No comment entered. Ordering Provider: ANAIS YING Report Released Date/Time: Aug 15, 2023 12:34 PM Reporting Lab: [facility] [place] [facility] [address] [address] Performing Lab: [facility] [address] [facility] [address] [facility] CBC AND DIFF (AUTO) LEUKOCYTES [#/VOLUME] IN BLOOD BY AUTOMATED COUNT 6.47 10*3/uL 4.50 - 11.00 08/25 Specimen Type: BLOOD No comment entered. Ordering Provider: ANAIS YING Report Released Date/Time: Aug 15, 2023 12:34 PM Reporting Lab: [facility] [place] [facility] [address] [facility] [address] Performing Lab: [facility] [address] [address] [facility] CBC AND DIFF (AUTO) ERYTHROCYT ES [#/VOLUME] IN BLOOD BY AUTOMATED COUNT 4.59 10*6/uL 4.23 - 5.66 08/25 Specimen Type: BLOOD No comment entered. Ordering Provider: ANAIS YING Report Released Date/Time: Aug 15, 2023 12:34 PM Reporting Lab: [facility] [place] [facility] [address] [address] Performing Lab: [facility] [place] [facility] [address] [facility] [address] [facility] [place] [facility] CBC AND DIFF (AUTO) HEMOGLOBIN [MASS/VOLU ME] IN BLOOD 14.3 g/dL 12.8 - 17 08/25 Specimen Type: BLOOD No comment entered. Ordering Provider: ANAIS YING Report Released Date/Time: Aug 15, 2023 12:34 PM Reporting Lab: [facility] [place] [address] [address] Performing Lab: [facility] [place] [address] [address] [facility] [place] [facility] CBC AND DIFF (AUTO) HEMATOCRIT [VOLUME FRACTION] OF BLOOD BY AUTOMATED COUNT 42.7 39.2 - 50.4 08/25 Specimen Type: BLOOD No comment entered. Ordering Provider: ANAIS YING Report Released Date/Time: Aug 15, 2023 12:34 PM Reporting Lab: [facility] [place] [address] [address] Performing Lab: [facility] [place] [facility] [address] [address] [facility] [place] [facility] CBC AND DIFF (AUTO) MCV [ENTITIC VOLUME] BY AUTOMATED COUNT 93.0 fL 82 - 99 08/25 Specimen Type: BLOOD No comment entered. Ordering Provider: ANAIS YING Report Released Date/Time: Aug 15, 2023 12:34 PM Reporting Lab: [facility] [place] [address] [address] Performing Lab: [facility] [place] [address] [address] [facility] [place] [facility] CBC AND DIFF (AUTO) MCHC [MASS/VOLU ME] BY AUTOMATED COUNT 33.5 g/dL 30.8 - 35.1 08/25 Specimen Type: BLOOD No comment entered. Ordering Provider: ANAIS YING Report Released Date/Time: Aug 15, 2023 12:34 PM Reporting Lab: [facility] [place] [facility] [address] [address] Performing Lab: [facility] [place] [facility] [address] [address] [facility] [place] [facility] CBC AND DIFF (AUTO) PLATELETS [#/VOLUME] IN BLOOD BY AUTOMATED COUNT 230 10*3/uL 140 - 360 08/25 Specimen Type: BLOOD No comment entered. Ordering Provider: ANAIS YING Report Released Date/Time: Aug 15, 2023 12:34 PM Reporting Lab: [facility] [place] [address] [address] Performing Lab: [facility] [place] [address] [address] [facility] [place] [facility] CBC AND DIFF (AUTO) ERYTHROCYT E DISTRIBUTI ON WIDTH [RATIO] BY AUTOMATED COUNT 12.8 12.0 - 16.0 08/25 Specimen Type: BLOOD No comment entered. Ordering Provider: ANAIS YING Report Released Date/Time: Aug 15, 2023 12:34 PM Reporting Lab: [facility] [place] [facility] [address] [address] Performing Lab: [facility] [place] [address] [address] [facility] [place] [facility] CBC AND DIFF (AUTO) MONOCYTES [#/VOLUME] IN BLOOD BY AUTOMATED COUNT 0.56 10*3/uL 0.30 - 1.10 08/25 Specimen Type: BLOOD No comment entered. Ordering Provider: ANAIS YING Report Released Date/Time: Aug 15, 2023 12:34 PM Reporting Lab: [facility] [place] [facility] [address] [address] Performing Lab: [facility] [address] [address] [facility] CBC AND DIFF (AUTO) MCH [ENTITIC MASS] BY AUTOMATED COUNT 31.2 pg 26.2 - 32.6 08/25 Specimen Type: BLOOD No comment entered. Ordering Provider: ANAIS YING Report Released Date/Time: Aug 15, 2023 12:34 PM Reporting Lab: [facility] [address] [address] Performing Lab: [facility] [place] [facility] [address] [address] [facility] [place] [facility] CBC AND DIFF (AUTO) NEUTROPHIL S/100 LEUKOCYTES IN BLOOD BY AUTOMATED COUNT 72.1 43.7 - 75.8 08/25 Specimen Type: BLOOD No comment entered. Ordering Provider: ANAIS YING Report Released Date/Time: Aug 15, 2023 12:34 PM Reporting Lab: [facility] [place] [facility] [address] [address] Performing Lab: [facility] [place] [facility] [address] [address] [facility] [place] [facility] CBC AND DIFF (AUTO) LYMPHOCYTE S/100 LEUKOCYTES IN BLOOD BY AUTOMATED COUNT 16.8 14.0 - 42.3 08/25 Specimen Type: BLOOD No comment entered. Ordering Provider: ANAIS YING Report Released Date/Time: Aug 15, 2023 12:34 PM Reporting Lab: [facility] [place] [facility] [address] [address] Performing Lab: [facility] [place] [facility] [address] [address] [facility] [place] [facility] CBC AND DIFF (AUTO) MONOCYTES/ 100 LEUKOCYTES IN BLOOD BY AUTOMATED COUNT 8.7 5.1 - 13.7 08/25 Specimen Type: BLOOD No comment entered. Ordering Provider: ANAIS YING Report Released Date/Time: Aug 15, 2023 12:34 PM Reporting Lab: [facility] [place] [facility] [address] [address] Performing Lab: [facility] [facility] [address] [address] [facility] [place] [facility] CBC AND DIFF (AUTO) EOSINOPHIL S/100 LEUKOCYTES IN BLOOD BY AUTOMATED COUNT 1.4 0.4 - 6.8 08/25 Specimen Type: BLOOD No comment entered. Ordering Provider: ANAIS YING Report Released Date/Time: Aug 15, 2023 12:34 PM Reporting Lab: [facility] [place] [facility] [address] [address] Performing Lab: [facility] [place] [facility] [address] [address] [facility] [place] [facility] CBC AND DIFF (AUTO) BASOPHILS/ 100 LEUKOCYTES IN BLOOD BY AUTOMATED COUNT 0.5 0.1 - 2.0 08/25 Specimen Type: BLOOD No comment entered. Ordering Provider: ANAIS YING Report Released Date/Time: Aug 15, 2023 12:34 PM Reporting Lab: [facility] [place] [facility] [address] [address] Performing Lab: [facility] [place] [facility] [address] [address] [facility] [place] [facility] CBC AND DIFF (AUTO) NEUTROPHIL S [#/VOLUME] IN BLOOD BY AUTOMATED COUNT 4.67 10*3/uL 2.20 - 7.60 08/25 Specimen Type: BLOOD No comment entered. Ordering Provider: ANAIS YING Report Released Date/Time: Aug 15, 2023 12:34 PM Reporting Lab: [facility] [place] [facility] [address] [address] Performing Lab: [facility] [place] [facility] [address] [facility] [address] [facility] [place] [facility] CBC AND DIFF (AUTO) LYMPHOCYTE S [#/VOLUME] IN BLOOD BY AUTOMATED COUNT 1.09 10*3/uL 1.00 - 3.20 08/25 Specimen Type: BLOOD No comment entered. Ordering Provider: ANAIS YING Report Released Date/Time: Aug 15, 2023 12:34 PM Reporting Lab: [facility] [place] [facility] [address] [address] Performing Lab: [facility] [place] [address] [address] [facility] [place] [facility] CBC AND DIFF (AUTO) EOSINOPHIL S [#/VOLUME] IN BLOOD BY AUTOMATED COUNT 0.09 10*3/uL 0.03 - 0.44 08/25 Specimen Type: BLOOD No comment entered. Ordering Provider: ANAIS YING Report Released Date/Time: Aug 15, 2023 12:34 PM Reporting Lab: [facility] [place] [address] [address] Performing Lab: [facility] [place] [address] [address] [facility] [place] [facility] CBC AND DIFF (AUTO) BASOPHILS [#/VOLUME] IN BLOOD BY AUTOMATED COUNT 0.03 10*3/uL 0.01 - 0.13 08/25 Specimen Type: BLOOD No comment entered. Ordering Provider: ANAIS YING Report Released Date/Time: Aug 15, 2023 12:34 PM Reporting Lab: [facility] [place] [address] [address] Performing Lab: [facility] [place] [address] [address] [facility] [place] [facility] CBC AND DIFF (AUTO) IMMATURE GRANULOCYT ES/100 LEUKOCYTES IN BLOOD BY AUTOMATED COUNT 0.5 0.0 - 0.7 08/25 Specimen Type: BLOOD No comment entered. Ordering Provider: ANAIS YING Report Released Date/Time: Aug 15, 2023 12:34 PM Reporting Lab: [facility] [place] [address] [address] Performing Lab: [facility] [place] [address] [address] [facility] [place] [facility] CBC AND DIFF (AUTO) IMMATURE GRANULOCYT ES [#/VOLUME] IN BLOOD 0.03 10*3/uL 0.00 - 0.06 08/25 Specimen Type: BLOOD No comment entered. Ordering Provider: ANAIS YING Report Released Date/Time: Aug 15, 2023 12:34 PM Reporting Lab: [facility] [place] [facility] [address] [address] Performing Lab: [facility] [place] [facility] [address] [address] [facility] [place] [facility] LIVER FUNCTION PROTEIN [MASS/VOLU ME] IN SERUM OR PLASMA 6.5 g/dL 6.0 - 8.3 08/25 Specimen Type: SERUM No comment entered. Ordering Provider: ANAIS YING Report Released Date/Time: Aug 15, 2023 12:34 PM Reporting Lab: [facility] [place] [facility] [address] [address] Performing Lab: [facility] [place] [facility] [address] [address] [facility] [place] [facility] LIVER FUNCTION ALBUMIN [MASS/VOLU ME] IN SERUM OR PLASMA 4.0 g/dL 3.5 - 5.0 08/25 Specimen Type: SERUM No comment entered. Ordering Provider: ANAIS YING Report Released Date/Time: Aug 15, 2023 12:34 PM Reporting Lab: [facility] [place] [address] [address] Performing Lab: [facility] [place] [facility] [address] [address] [facility] [place] [facility] LIVER FUNCTION ALKALINE PHOSPHATAS E [ENZYMATIC ACTIVITY/V OLUME] IN SERUM OR PLASMA 54 U/L 40 - 150 08/25 Specimen Type: SERUM No comment entered. Ordering Provider: ANAIS YING Report Released Date/Time: Aug 15, 2023 12:34 PM Reporting Lab: [facility] [place] [address] [address] Performing Lab: [facility] [place] [facility] [address] [address] [facility] [place] [facility] LIVER FUNCTION ASPARTATE AMINOTRANS FERASE [ENZYMATIC ACTIVITY/V OLUME] IN SERUM OR PLASMA 14 U/L 5 - 34 08/25 Specimen Type: SERUM No comment entered. Ordering Provider: ANAIS YING Report Released Date/Time: Aug 15, 2023 12:34 PM Reporting Lab: [facility] [place] [facility] [address] [facility] [address] Performing Lab: [facility] [place] [facility] [address] [facility] [facility] [address] [facility] [place] [facility] LIVER FUNCTION ALANINE AMINOTRANS FERASE [ENZYMATIC ACTIVITY/V OLUME] IN SERUM OR PLASMA 14 U/L 08/25 Specimen Type: SERUM No comment entered. Ordering Provider: ANAIS YING Report Released Date/Time: Aug 15, 2023 12:34 PM Reporting Lab: [facility] [place] [facility] [address] [facility] [address] Performing Lab: [facility] [place] [facility] [address] [facility] [facility] [address] [facility] [place] [facility] LIVER FUNCTION BILIRUBIN. TOTAL [MASS/VOLU ME] IN SERUM OR PLASMA 0.7 mg/dL 0.2 - 1.2 08/25 Specimen Type: SERUM No comment entered. Ordering Provider: ANAIS YING Report Released Date/Time: Aug 15, 2023 12:34 PM Reporting Lab: [facility] [place] [facility] [address] [facility] [address] Performing Lab: [facility] [place] [facility] [address] [facility] [address] [facility] [place] [facility] LIPID PANEL FASTING CHOLESTERO L [MASS/VOLU ME] IN SERUM OR PLASMA 221 mg/dL 08/25 H Specimen Type: SERUM No comment entered. Ordering Provider: ANAIS YING Report Released Date/Time: Aug 15, 2023 12:34 PM Reporting Lab: [facility] [place] [facility] [address] [address] Performing Lab: [facility] [place] [place] [facility] [address] [address] [facility] [place] [facility] LIPID PANEL FASTING TRIGLYCERI DE [MASS/VOLU ME] IN SERUM OR PLASMA 95 mg/dL 0 - 150 08/25 Specimen Type: SERUM No comment entered. Ordering Provider: ANAIS YING Report Released Date/Time: Aug 15, 2023 12:34 PM Reporting Lab: [facility] [place] [place] [facility] [address] [address] Performing Lab: [facility] [place] [facility] [address] [address] [facility] LIPID PANEL FASTING CHOLESTERO L IN LDL [MASS/VOLU ME] IN SERUM OR PLASMA BY CALCULATIO N 138 mg/dL 0 - 129 08/25 H Specimen Type: SERUM No comment entered. Ordering Provider: ANAIS YING Report Released Date/Time: Aug 15, 2023 12:34 PM Reporting Lab: [facility] [place] [facility] [address] [address] Performing Lab: [facility] [place] [facility] [address] [address] [facility] LIPID PANEL FASTING CHOLESTERO L.TOTAL/CH OLESTEROL IN HDL [MASS RATIO] IN SERUM OR PLASMA 3.5 08/25 Specimen Type: SERUM No comment entered. Ordering Provider: ANAIS YING Report Released Date/Time: Aug 15, 2023 12:34 PM Reporting Lab: [facility] [place] [facility] [address] [address] Performing Lab: [facility] [place] [facility] [address] [address] [facility] [place] [facility] LIPID PANEL FASTING CHOLESTERO L IN HDL [MASS/VOLU ME] IN SERUM OR PLASMA 64 mg/dL 40 - 60 08/25 H Specimen Type: SERUM No comment entered. Ordering Provider: ANAIS YNIG Report Released Date/Time: Aug 15, 2023 12:34 PM Reporting Lab: [facility] [place] [address] [address] Performing Lab: [facility] [place] [address] [address] [facility] [place] [facility] TSH THYROTROPI N [UNITS/VOL UME] IN SERUM OR PLASMA 1.24 u[IU]/mL 0.35 - 5.00 08/25 Specimen Type: SERUM No comment entered. Ordering Provider: ANAIS YING Report Released Date/Time: Aug 15, 2023 12:34 PM Reporting Lab: [facility] [place] [address] [address] Performing Lab: [facility] [place] [address] [address] [facility] [place] [facility] PSA PROSTATE SPECIFIC AG [MASS/VOLU ME] IN SERUM OR PLASMA 4.03 ng/mL 0.00 - 4.00 08/25 H Specimen Type: SERUM No comment entered. Ordering Provider: ANAIS YING Report Released Date/Time: Aug 15, 2023 12:34 PM Reporting Lab: [facility] [place] [place] [address] [address] Performing Lab: [facility] [address] [address] [facility]CHUSE [facility] HEMOGLOB IN A1C PANEL HEMOGLOBIN A1C/HEMOGL OBIN.TOTAL IN BLOOD BY HPLC 7.0 4.0 - 5.6 08/25 H Specimen Type: BLOOD Comment: Values obtained from A1C measurement s can vary. For atypical A1C assays, a reported value of 7.0 could actually be between 6.72 and 7.28 if measured by a reference method. A reported value of 9.0 could actually be between 8.73 and 9.27. Ref: http://www. ngsp.org/[place] Pdata.asp Ordering Provider: ANAIS YING Report Released Date/Time: Aug 15, 2023 12:34 PM Reporting Lab: [facility] [place] [facility] [address] [address] Performing Lab: [facility] [place] [facility] [address] [address] [facility] [place] [facility] URINALYS IS CLEAN CATCH COLOR OF URINE Light-Ye llow 08/25 Specimen Type: URINE Comment: If Glucose = >500 and Ketones are positive, please alert the Physician. Ordering Provider: ANAIS YING Report Released Date/Time: Aug 15, 2023 12:34 PM Reporting Lab: [facility] [place] [facility] [address] [address] Performing Lab: [facility] [place] [facility] [address] [address] [facility] [place] [place] [facility] URINALYS IS CLEAN CATCH APPEARANCE OF URINE Clear 08/25 Specimen Type: URINE Comment: If Glucose = >500 and Ketones are positive, please alert the Physician. Ordering Provider: ANAIS YING Report Released Date/Time: Aug 15, 2023 12:34 PM Reporting Lab: [facility] [place] [facility] [address] [address] Performing Lab: [facility] [place] [facility] [address] [address] [facility] [place] [facility] URINALYS IS CLEAN CATCH GLUCOSE [MASS/VOLU ME] IN URINE NEGATIVE mg/dL 08/25 Specimen Type: URINE Comment: If Glucose = >500 and Ketones are positive, please alert the Physician. Ordering Provider: ANAIS YING Report Released Date/Time: Aug 15, 2023 12:34 PM Reporting Lab: [facility] [place] [facility] [address] [address] Performing Lab: [facility] [place] [facility] [address] [address] [facility] [place] [facility] URINALYS IS CLEAN CATCH KETONES [MASS/VOLU ME] IN URINE BY TEST STRIP NEGATIVE mg/dL 08/25 Specimen Type: URINE Comment: If Glucose = >500 and Ketones are positive, please alert the Physician. Ordering Provider: ANAIS YING Report Released Date/Time: Aug 15, 2023 12:34 PM Reporting Lab: [facility] [place] [facility] [address] [address] Performing Lab: [facility] [place] [facility] [address] [address] [facility] [place] [facility] URINALYS IS CLEAN CATCH ERYTHROCYT ES [PRESENCE] IN URINE SEDIMENT BY LIGHT MICROSCOPY NEGATIVE mg/dL 08/25 Specimen Type: URINE Comment: If Glucose = >500 and Ketones are positive, please alert the Physician. Ordering Provider: ANAIS YING Report Released Date/Time: Aug 15, 2023 12:34 PM Reporting Lab: [facility] [place] [facility] [address] [address] Performing Lab: [facility] [place] [facility] [address] [address] [facility] [place] [facility] URINALYS IS CLEAN CATCH PROTEIN [MASS/VOLU ME] IN URINE BY TEST STRIP NEGATIVE mg/dL 08/25 Specimen Type: URINE Comment: If Glucose = >500 and Ketones are positive, please alert the Physician. Ordering Provider: ANAIS YING Report Released Date/Time: Aug 15, 2023 12:34 PM Reporting Lab: [facility] [place] [facility] [address] [address] Performing Lab: [facility] [place] [facility] [address] [address] [facility] [place] [facility] URINALYS IS CLEAN CATCH NITRITE [PRESENCE] IN URINE NEGATIVE mg/dL 08/25 Specimen Type: URINE Comment: If Glucose = >500 and Ketones are positive, please alert the Physician. Ordering Provider: ANAIS YING Report Released Date/Time: Aug 15, 2023 12:34 PM Reporting Lab: [facility] [place] [facility] [address] [address] Performing Lab: [facility] [place] [facility] [address] [address] [facility]ITALRCRENSHA[facility]OSPITALN [place] [facility] URINALYS IS CLEAN CATCH BILIRUBIN. TOTAL [PRESENCE] IN URINE NEGATIVE mg/dL 08/25 Specimen Type: URINE Comment: If Glucose = >500 and Ketones are positive, please alert the Physician. Ordering Provider: ANAIS YING Report Released Date/Time: Aug 15, 2023 12:34 PM Reporting Lab: [facility]ITALRCRENSHAW [facility]OSPITALN [place] [address] Performing Lab: [facility]ITALREAST [facility]ENTERTRN [place] [facility] [address] [address] [facility] URINALYS IS CLEAN CATCH SPECIFIC GRAVITY OF URINE BY REFRACTOME TRY 1.022 1.016 - 1.022 08/25 Specimen Type: URINE Comment: If Glucose = >500 and Ketones are positive, please alert the Physician. Ordering Provider: ANAIS YING Report Released Date/Time: Aug 15, 2023 12:34 PM Reporting Lab: [facility]ITALREAST [facility] CENTERTRN [address] [address] Performing Lab: [facility]ITALRE[facility] CENTERTRN MASSUSE[address] [address] [facility] URINALYS IS CLEAN CATCH PH OF URINE BY TEST STRIP 7.0 5.0 - 9.0 08/25 Specimen Type: URINE Comment: If Glucose = >500 and Ketones are positive, please alert the Physician. Ordering Provider: ANAIS YING Report Released Date/Time: Aug 15, 2023 12:34 PM Reporting Lab: [facility]ITALREAST [facility] CENTERTRN [address] [address] Performing Lab: [facility]ITALRE[facility]ENTERTRN [place] [address] [address] [facility] URINALYS IS CLEAN CATCH UROBILINOG EN [MASS/VOLU ME] IN URINE BY TEST STRIP <2.0mg/d L <2.0 - 2.0 08/25 Specimen Type: URINE Comment: If Glucose = >500 and Ketones are positive, please alert the Physician. Ordering Provider: ANAIS YING Report Released Date/Time: Aug 15, 2023 12:34 PM Reporting Lab: [facility]ITALREAST [facility] CENTERTRN [facility]ENTERUSETS [address] [address] Performing Lab: [facility]ITALRL [facility]ENTERUSETS [address] [address] [facility]ITALRE[facility] CENTERTRN [place] [facility] URINALYS IS CLEAN CATCH LEUKOCYTE ESTERASE [PRESENCE] IN URINE BY TEST STRIP NEGATIVE 08/25 Specimen Type: URINE Comment: If Glucose = >500 and Ketones are positive, please alert the Physician. Ordering Provider: ANAIS YING Report Released Date/Time: Aug 15, 2023 12:34 PM Reporting Lab: [facility]ITALREAST [facility] CENTERTRN [facility]ENTERUSE[address] [address] Performing Lab: [facility] HOSPITALRCRENSHAW COMMUNITY HOSPITALN [facility]ENTERUSE[address] [address] [facility]ITALRCRENSHAW COMMUNITY HOSPITALN [facility]ENTERUSE [facility] HEPATITI S C ANTIBODY (HCV)-AR C HEPATITIS C VIRUS AB [PRESENCE] IN SERUM REACTIVE 08/25 HH Specimen Type: SERUM Comment: Hep C Ab : Anti-HCV Reactive; HCV viral load testing will be performed and reported separately. If clinical suspicion is low and a false-posit clarisa reaction is suspected, consider repeat testing. Ordering Provider: ANAIS YING Report Released Date/Time: Aug 15, 2023 12:34 PM Reporting Lab: [facility]OSPITALRCRENSHAW COMMUNITY HOSPITALN [facility]ENTERUSE[address] [address] Performing Lab: [facility]OSPITALRL TRN [facility] CENTERUSETS [address] [address] [facility]OSPITALRCRENSHAW COMMUNITY HOSPITALN [facility]USE [facility] MICROALB UMIN CREATINI NE RATIO PANEL MICROALBUM IN/CREATIN INE [MASS RATIO] IN URINE 4.4 mg/g 0 - 29.9 08/25 Specimen Type: URINE No comment entered. Ordering Provider: ANAIS YING Report Released Date/Time: Aug 15, 2023 12:36 PM Reporting Lab: [facility]OSPITALRCRENSHAW COMMUNITY HOSPITALN [facility]ENTERUSE[address] [address] Performing Lab: [facility] [place] [facility] [address] [facility] [facility] [address] [facility] [place] [facility] MICROALB UMIN CREATINI NE RATIO PANEL MICROALBUM IN [MASS/VOLU ME] IN URINE 0.5 mg/dL 08/25 Specimen Type: URINE No comment entered. Ordering Provider: ANAIS YING Report Released Date/Time: Aug 15, 2023 12:36 PM Reporting Lab: [facility] [place] [facility] [address] [facility] [facility] [address] Performing Lab: [facility] [place] [facility] [address] [facility] [facility] [address] [facility] [place] [facility] MICROALB UMIN CREATINI NE RATIO PANEL CREATININE [MASS/VOLU ME] IN URINE 112.80 mg/dL 08/25 Specimen Type: URINE No comment entered. Ordering Provider: ANAIS YING Report Released Date/Time: Aug 15, 2023 12:36 PM Reporting Lab: [facility] [place] [facility] [address] [facility] [address] Performing Lab: [facility] [place] [facility] [address] [facility] [address] [facility] [place] [facility] Vital Signs Combined list of inpatient and outpatient Vital Signs from Department of Defense and Veterans Affairs, ranging from 12 months to all on record, depending upon the facility. Vital Sign Value Date Comments Source WEIGHT 211 03/25/2024 09:44:12 [facility] [place] [facility] BMI 28 kg/m2 03/25/2024 09:44:12 [facility] [place] [facility] WEIGHT 210 03/11/2024 09:00:00 [facility] BMI 28 kg/m2 03/11/2024 09:00:00 [facility] WEIGHT 212 02/12/2024 09:00:00 [facility] BMI 28 kg/m2 02/12/2024 09:00:00 [facility] WEIGHT 213 02/05/2024 09:00:00 [facility] BMI 28 kg/m2 02/05/2024 09:00:00 [facility] WEIGHT 212 01/22/2024 09:00:00 [facility] BMI 28 kg/m2 01/22/2024 09:00:00 [facility] Encounters Combined list of: 1) Encounters from Department of Veterans Affairs facilities going backup to the last 18 months, not all VA inpatient encounters are included; 2) Encounters from the Department of Defense facilities going backup to 280 months. Location Location Details Encounter Type Encounter Number Reason For Visit Attending Provider ADM Date DC Date Status Disposition Source [facility] [place] [facility] Encounter [id number] 05/19 [facility] [place] [facility] [place] En[facility] [id number] SUJEY IZAGUIRRE ISTOPHER E [facility] [place] [facility] [place] [facility] [place] 1 [id number] Diagnos is: ICD-10- CM H25.13 Age-rel ated nuclear catarac t, bilater al YOLANDA MENDIOLAA H B 07/29 [facility] [place] [place] [facility] [place] [facility] FIT SPECTACLES MULTIFOCAL [id number] Diagnos is: ICD-10- CM Z46.0 Encount er for fit/adj st of spectac les and contact lenses ANGIE MENDIOLA H B 08/03 [facility] [place] [place] [facility] [place] Encounter [id number] 08/19 [facility] [place] [place] Encounter [id number] 08/25 [facility] [place] Encounter [id number] 08/28 [facility] [place] OFFICE O/P EST LOW 20 MIN [id number] Diagnos is: ICD-10- CM E11.9 Type 2 diabete s mellitu s without complic ations INDIRA YING RD D 08/28 [facility] [place] [place] [place] AD[place] [id number] D 08/28 [facility] [place] Out[facility] Encounter [id number] 09/07 [facility] [place] [facility] [place] QNHP OL DIG ASSMT&MGMT 5-10 [id number] Diagnos is: ICD-10- CM E11.9 Type 2 diabete s mellitu s without complic ations LARIVIERE, CULLEN A 09/17 [facility] [place] En[facility] [id number] LARIVIERE, CULLEN A 09/17 [facility] [place] Encounter [id number] 10/07 [facility] [place] [facility] [place] QNHP OL DIG ASSMT&MGMT 5-10 [id number] Diagnos is: ICD-10- CM E11.9 Type 2 diabete s mellitu s without complic ations LARIVIERE, CULLEN A 10/22 [facility] [place] En[facility] [id number] LARIVIERE, CULLEN A 10/22 [facility] [place] BEHAVE COUNS 2-10 [id number] 1GF. Diagnos is: ICD-10- CM E66.3 Overwei reggie [facility]IM[facility] SINA 12/03 [facility] MED NUTRITION INDIV SUBSEQ [id number] 1. Diagnos is: ICD-10- CM E11.9 Type 2 diabete s mellitu s without complic ations CULLEN TORRES A 12/03 [facility] [place] 2-10 [id number] Diagnos is: ICD-10- CM E66.3 Overwei reggie [facility]IM,[facility] S[facility] 12/10 [facility] 2-10 [id number] Diagnos is: ICD-10- CM E66.3 Overwei reggie IBRA[facility]IM,[facility] SINA 12/17 [facility] HLTH BHV IVNTJ GRP EA ADDL [id number] Diagnos is: ICD-10- CM E66.3 Overwei GLADYS Grande WILLIE R 12/24 [facility] BHV IVNTJ GRP EA ADDL [id number] Diagnos is: ICD-10- CM E66.3 Overwei roneyt GLADYS CRUZ WILLIE R 12/31 [facility] COUNS 2-10 [id number] 1GF. 69 Diagnos is: ICD-10- CM E66.3 Overwei reggie [facility]RA[facility]IM,[facility] SINA 01/07 [facility] HLTH BHV IVNTJ GRP EA ADDL [id number] Diagnos is: ICD-10- CM E66.3 Overcaitlyni [place] WILLIE R 01/14 [facility]NS 2-10 [id number] Diagnos is: ICD-10- CM E66.3 Overwei KAILEE Gallardo HELLE SINA 01/21 [facility] HLTH BHV IVNTJ GRP EA ADDL [id number] Diagnos is: ICD-10- CM E66.3 OverGLADYS Zacarias WILLIE R 02/04 [facility]NS 2-10 [id number] Diagnos is: ICD-10- CM E66.3 Violeta [facility]RAHIM,[facility] HELLE SINA 02/11 [facility] OFF/OP EST MAY X REQ PHY/QHP [id number] 1GF. 48 Diagnos is: ICD-10- CM E66.3 Violeta [facility]IM,[facility] HELLE SINA 03/11 [facility] [place] [facility] MED NUTRITION INDIV SUBSEQ [id number] Diagnos is: ICD-10- CM E11.9 Type 2 diabete s mellitu s without complic ations CULLEN TORRES A 03/25 [facility] OFF/OP EST MAY X REQ PHY/QHP [id number] Diagnos is: ICD-10- CM E11.9 Type 2 diabete s mellitu s without complic ations OSCAR DOMINGO 04/01 [facility] RPR&REFITG SPECT XCP APHAKIA [id number] 1. 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 Social History Type Response Date Comment Sourc e Tobacco smoking status NHIS VA-TOBACCO FORMER USER 08/29/2023 [facility] [facility] History of tobacco use AR-TOBACCO QUIT 15 YRS OR MORE 08/29/2023 [facility] History of tobacco use VA-TOBACCO FORMER USER 08/28/2022 [facility] History of tobacco use VA-TOBACCO FORMER USER 08/31/2021 [facility] [facility] History of tobacco use VA-TOBACCO QUIT 15 YRS OR MORE 06/29/2020 [facility] [place] [facility] History of tobacco use VA-TOBACCO QUIT 15 YRS OR MORE 03/19/2019 [facility] [place] [facility] Plan of Care List of future care activities from Department of Veterans Affairs facilities. Additional future care activities may be listed in the Assessment and Plan section. Date/Time Care Activity Care Activity Detail Facili ty 08/23/2024 AMBULATORY - MEDICINE AMBULATORY - MEDICI NE [facility] [place] [facility] 08/03/2024 Consult Order EYEGLASS REQUEST - 4 SIGHT Cons Occupational Therapy Instructor's Choice [facility] [place] [facility]
--- OUTSIDE RECORDS SUMMARY | 2024-08-03 09:18 | XMS_ITS ---
NE MED NUTRITION INDIV SUBSEQ [facility] [place] [facility] Encounter Summary Created on: August 03, 2024 GREENEFADI : 1955 Sex: Male Author Name [facility] Organization [facility] Address [address] [place] [address] Care Team Providers Care Key Punch Operator Name Role Phone SAIDA HOUSTON Primary [...] PART A Feb 16, 2019 PART A [id number] MUNDO [place] PATIENT MEDICARE (WNR) MEDICARE (M) PART B Feb 16, 2019 PART B [id number] MUNDO [place] PATIENT FOR LIFE TFL* Feb 16, 2019 [id number] MUNDO [place] PATIENT Selected Encounter This section includes the information on record at NE for the Encounter. Date/Time Encounter Type Encounter Description Reason Provider Source Dec 04, 2023 10:45 AM MED NUTRITION INDIV SUBSEQ NUTRITION/DIETETI CS-INDIVIDUAL ICD-10-CM E11.9 Type 2 diabetes mellitus without complications LAURITA TORRES Encounter Template Text not used by NE Assessments - Encounter Diagnoses This section includes the primary and secondary diagnoses documented for the Encounter. Date/Time Primary/Secondary Diagnosis Diagnosis Name Provider Source Dec 04, 2023 01:20 PM PRIMARY Type 2 diabetes mellitus without complications LAURITA TORRES [facility] [place] [facility] Dec 04, 2023 01:20 PM SECONDARY Body mass index [BMI] 28.0-28.9, adult LAURITA TORRES [facility] [place] [facility] Dec 04, 2023 01:20 PM SECONDARY Dietary counseling and surveillance LAURITA TORRES [facility] [place] [facility] Dec 04, 2023 01:20 PM SECONDARY Overweight [facility]ITA [facility]ORRES [facility] Plan of Treatment: Future Appointments (+ 6 months) and Future Tests (+/- 45 days) The Plan of Treatment section includes future care activities for the patient from all NE treatmentlegacy healthities. This section includes future appointments and future orders which are active, pending or scheduled. Future Appointments This section includes appointments that were scheduled to occur 6 months from the date of the Encounter, up to a maximum of 20 appointments. The data comes from all NE treatment facilities. Appointment Date/Time Appointment Type Appointme nt Facility Name Dec 11, 2023 09:00 AM AMBULATORY - [...] 25, 2024 09:15 AM AMBULATORY - NONE [facility] [place] [facility] Apr 01, 2024 11:00 AM AMBULATORY - MEDICINE [facility] [place] [facility] Apr 02, 2024 03:00 PM AMBULATORY - MEDICINE [facility] [place] [facility] Vital Signs: All taken on the encounter date This section contains inpatient and outpatient Vital Signs collected on the date of the Encounter. Date/Time Temperature Pulse Blood Pressure Respiratory Rate SP02 Pain Height Weight Body Mass Index Source Dec 04, 2023 11:27 AM 214 28 [facility] [place] [facility] Social History: Smoking Status (Most current) and Tobacco Use (All prior to encounter date) This section includes the most current, and the historical, smoking and tobacco- related health factors from the NE facility where the Encounter took place. Current Smoking Status This section includes the most current smoking, or tobacco-related health factor, from the NE facility where the Encounter took place. Date/Time Current Smoking Status Comment Facil ity Aug 29, 2023 11:00 AM VA-TOBACCO FORMER USER [facility] [place] [facility] Tobacco Use History This section includes a history of the smoking, or tobacco-related health factors, that were collected on or before the date of the Encounter. The data comes from the NE facility where the Encounter took place. Date/Time Smoking Status/Tobacco Use Comment F acility Aug 29, 2023 11:00 AM VA-TOBACCO QUIT 15 YRS OR MORE [facility] [place] [facility] Aug 28, 2022 11:00 AM VA-TOBACCO FORMER USER [facility] [place] [facility] Aug 28, 2022 11:00 AM VA-TOBACCO QUIT 15 YRS OR MORE [facility] [place] [facility] Aug 31, 2021 10:30 AM VA-TOBACCO FORMER USER [facility] [place] [facility] Aug 31, 2021 10:30 AM VA-TOBACCO QUIT 15 YRS OR MORE [facility] [place] [facility] Jun 29, 2020 01:30 PM VA-TOBACCO FORMER USER [facility] [place] [facility] Jun 29, 2020 01:30 PM VA-TOBACCO QUIT 15 YRS OR MORE [facility] [place] [facility] Mar 19, 2019 03:54 PM VA-TOBACCO FORMER USER [facility] [place] [facility] Mar 19, 2019 03:54 PM VA-TOBACCO QUIT 15 YRS OR MORE [facility] [place] [facility] Encounter Notes: All associated encounter notes This section contains the clinical notes associated to the Encounter. Date/Time Encounter Note(s) Provider Source Dec 04, 2023 08:17 AM NUTRITION DIETETICS NOTE: LOCAL TITLE: NUTRITION PROGRESS NOTE STANDARD TITLE: NUTRITION DIETETICS NOTE DATE OF NOTE: DEC 04, 2023@08:17 ENTRY DATE: DEC 04, 2023@08:17:08 AUTHOR: CULLEN TORRES COSIGNER: URGENCY: STATUS: COMPLETED [facility] Connect (VVC) Standard Documentation VVC Clinician Resources Only: E911 (Emergency Call Relay Center): [phone] National [facility] Crisis Line - 988 then press #1. [facility] Suicide Coordinator [phone], Ext. [phone]; Back-up Ext. [phone] [place] [address], [place] Simone [phone] Introduction: Visit is being conducted by [place] [facility] [facility]. identified with 2 identifiers: [X] Full Name [X] Date of [ ] VA ID Card Emergency Plan: [place] confirmed and/or provided the following information in case of emergency or technology failure. PATIENT PHONE - PHONE NUMBER [CELLULAR] - Is patient phone number correct, if not, enter below: [place]'s phone number: candice FADI GREENE [address], [place], [address] 's present location and address for appointment: [address] [place] [address], [address] 's emergency contact name and phone number: YULIANA GREENE Spouse [phone] cell [place] reported that location is private and safe: Yes Informed Consent: [place] informed of the risks and benefits of Telehealth video care. has the right to refuse video services. If refuses video visit, a [id number] visit will be scheduled. [place] verbalized consent for this video visit: Yes provided consent for any other persons present for visit: Yes If yes, who and relationship to patient: Yuliana, during part of visit Secure visit: Visit was locked for security and privacy:Yes Reason for Nutrition referral: Diabetes Mellitus Primary Diagnosis: Type II DM without complication (E11.9) Secondary Diagnosis: Dietary Surveillance and Counseling (Z71.3) Additional Secondary Diagnosis: Overweight (E66.3) Body mass index [BMI] 28.0-28.9, adult (ICD-10-CM Z68.28) Date of Nutrition Referral: 08/29/23 Referred to Nutrition Clinic By: Dr. Houston Date of Nutrition Visit: November Visit #: 3 Time Spent with Patient: 40 minutes Patient identified using the following two forms of ID: Date of , Patient Full Name NUTRITION ASSESSMENT: Anthropometric Measurements: Ht:73 in [185.4 cm] (06/29/2019 14:28) Wt:214 lbs = 12/04/23 Weight History: 213 = 10/23/23 217 = 08/29/23 BMI: 28.29 IBW: 184 +/-10% Biochemical Data/Medical Tests: No new labs Most recent A1C: SCL1 - HEMOGLOBIN A1C TREND Collection DT Spec HGBA1c 08/26/2023 09:39 BLOOD 7.0 H Nutrition Focused Physical Findings: N/A Nutrition-Focused Physical Exam Unable to perform nutrition-focused physical assessment Nutrition-Focused Physical Exam Summary: Based on the ASPEN/AND Malnutrition Diagnosis Guide, it was determined that the [place] DOES NOT have malnutrition. Nutrition History: Food/Nutrition Related History: Progress since last visit: Went on cruise vacation for about 2 weeks and had extra items e.g pollock & wine. OTherwise continues to read labels for total carbohydrate content. Has stopped eating fig bars. Has reduced amount of crackers he eats. Has reduced beer intake to twice a week. Attending MOVE Program. Received worksheet of trimming red light foods but has not used yet. In the past 3 months, did you ever run out of food and you were not able to access more food or have the money to buy more food? No Other Subjective Information: Asking about portions for cherries, watermelon. Received handouts, no questions on them. Accepts [...] for total Carbohydrate content, reduced intake of crackers, fig bars [ ] Unresolved/No Improvement [ ] No Longer Appropriate NUTRITION INTERVENTION: NUTRITION EDUCATION provided on the following topic(s): Complex vs. Refined Carbohydrate (dietary sources and effect on glucose), Potential Benefits of Weight Loss, MOVE! program (rationale, format, content, day/time, location) OTher: Reviewed progress since last visit. Explored additional options to help with Diabetes and Weight Management. Discussed impact of vacation and getting back on track. Reinforced the benefits of wt reduction and MOVE Program. Reinforced use of information on Diabetes Meal Plate handout he has with goal of 3-4 carbohydrate servings (45-60grams of carbohydrate) per meal and use of nutrition facts label. Answered his questions on cherries and watermelon (used food model to visual watermelon serving size). Reinforced value of choosing fiber containing Carbohydrate sources and examples when making carbohydrate choices. Printed Nutrition educational materials provided during this encounter: NOne today, provided prior visits Food/Drug Interactions: Educated 09/18/23 HCTZ/Losartan - Potassium/salt substitute Barriers to Education: None Comprehension: Good Motivation: Good Goals: 1. Continue to avoid fig bars 2. Continue to limit beer to twice per week 3. Continue efforts to moderate carbohydrate intake: * Place plate handout where you will see it (refrigerator) * Continue to read nutrition facts box on food labels for total carbohydrate content * Aim for 3-4 carbohydrate servings per meal (45-60 grams carbohydrate) 4. MOVE Program for weight management and habit changes ========= NUTRITION COUNSELLING: Strategies: Motivational Interviewing, Goal Setting COORDINATION OF NUTRITION CARE: Follow-up with: PCP, MOVE Program MONITORING/EVALUATION: 1. Follow-up visit: March 2. Monitor progress toward achievement of Nutrition [...] of 1-2/#/week toward IBW by follow-up Progress: Unmet, wt up 1 lbs since last visit, continue goal [employer] HE[employer] COACHING SKILLS Coaching or Motivational Interviewing skills used. /es/ CULLEN TORRES RD, LDN STAFF DIETITIAN Signed: 12/05/2023 15:31 [facility]ORRES [facility]
== END 2024-08-03 08:50 | disposition home or self-care (01) ==
LOC: HO.US 08:49
PROVIDERS: PCP Internal Medicine; Visit Provider Internal Medicine
DX: Z86.19 Personal history of other infectious and parasitic diseases (principal)
CPT/HCPCS: 76700; 76981

== ENCOUNTER → 2024-08-03 08:53 | Outpatient (BNV) | payer MEDICARE, SELFPAY | PROVIDERS: PCP Internal Medicine; Visit Provider Radiology Diagnostic Radiology | DX: Z86.19 Personal history of other infectious and parasitic diseases (principal) | CPT/HCPCS: 76700 ==